=== PATIENT | female | born 1940 | race Caucasian/White ===

== ENCOUNTER 2019-02-20 14:16 | Observation (INO) | payer MEDICARE ==
[~2019-02-20] VITALS: Ht 152.4 cm; Wt 58.6 kg
[2019-02-20] MEDS ORDERED: NITROGLYCERIN 2% OINT 1 GM UNIT DOSE PACKET TOP ONE (14:45)
--- NOTE | 2019-02-20 14:48 | ED Respiratory ---
General Chief Complaint: Respiratory Problems Stated Complaint: SOB History of Present Illness Date Seen by Provider: Feb 20, 2019 Time Seen by Provider: 14:30 Initial Comments The patient is a 78-year-old female with a history of hypertension, hyperli pidemia, coronary artery disease status post CABG and stenting, heart failure with unclear EF, chronic kidney disease. She presents with concern for dyspnea with exertion, orthopnea and paroxysmal nocturnal dyspnea with acute worsening over the past one day. Patient states she has not been able to sleep lying flat due to dyspnea. She becomes dyspneic with minimal exertion. She states these symptoms are new. She thinks she may have forgotten to take her Lasix yesterday. She is alert and pleasantly and appropriately interactive, speaking in full sentences and in no distress. She is hypertensive and oxygen saturation is in the mid to upper 90s on room air. Allergies and Home Medications Allergies Coded Allergies: No Known Drug Allergies (Unverified , 02/20/19) Patient Home Medication List Home Medication List Reviewed: Yes Review of Systems Review of Systems Constitutional: see HPI All Other Systems Reviewed Negative Unless Noted: Yes (Negative excepted noted.) Past Qclupyj-Rtyapr-Fczvja Hx Past Med/Social Hx: Reviewed Nursing Past Med/Soc Hx Patient Social History Recent Foreign Travel: No Family Medical History Reviewed Nursing Family Hx Physical Exam Vital Signs - First Documented 02/20/19 14:25 Temp 36.5 Pulse 114 Resp 19 B/P (MAP) 184/87 (119) Pulse Ox 96 O2 Delivery Room Air Capillary Refill : Height: '" Weight: lbs. oz. kg; BMI Method: General Appearance: no apparent distress This is an elderly female appearing nontoxic and in no acute distress. Head is normocephalic and atraumatic. Neck is supple and nontender. There is mild JVD appreciated bilaterally. Oropharynx is moist. Lungs with diminished breath sounds, particularly to lower wade. No adventitious sounds appreciated. There is a normal S1 and S2 without rubs or gallops and capillary refill is appropriate, less than 2 seconds globally. Abdomen is soft, nontender and nondistended. Skin is warm and dry without cyanosis or clubbing. Psychiatrically, the patient demonstrates appropriate mood and affect and is alert. Examination of bilateral lower extremities is remarkable for symmetric 2+ pitting edema below the level of the mid to upper shins bilaterally. There is no associated erythema. There is no calf pain or erythema bilaterally. Bilateral lower extremities are neurovascularly intact distally. Progress/Results/Core Measures Suspected Sepsis SIRS Temperature: Pulse: Respiratory Rate: Laboratory Tests 02/20/19 14:30: White Blood Count 7.9 Blood Pressure / Mean: Laboratory Tests 02/20/19 14:30: Creatinine 1.04, INR Comment 1.0, Platelet Count 327, Total Bilirubin 0.7 Results/Orders Lab Results Laboratory Tests Test 02/20/19 14:30 Range/Units White Blood Count 7.9 4.3-11.0 10^3/uL Red Blood Count 3.78 L 4.35-5.85 10^6/uL Hemoglobin 10.8 L 11.5-16.0 G/DL Hematocrit 33 L 35-52 % Mean Corpuscular Volume 88 80-99 FL Mean Corpuscular Hemoglobin 29 25-34 PG Mean Corpuscular Hemoglobin Concent 32 32-36 G/DL Red Cell Distribution Width 13.4 10.0-14.5 % Platelet Count 327 130-400 10^3/uL Mean Platelet Volume 10.6 H 7.4-10.4 FL Neutrophils (%) (Auto) 61 42-75 % Lymphocytes (%) (Auto) 24 12-44 % Monocytes (%) (Auto) 8 0-12 % Eosinophils (%) (Auto) 6 0-10 % Basophils (%) (Auto) 1 0-10 % Neutrophils # (Auto) 4.8 1.8-7.8 X 10^3 Lymphocytes # (Auto) 1.9 1.0-4.0 X 10^3 Monocytes # (Auto) 0.7 0.0-1.0 X 10^3 Eosinophils # (Auto) 0.5 H 0.0-0.3 10^3/uL Basophils # (Auto) 0.0 0.0-0.1 10^3/uL Prothrombin Time 13.7 12.2-14.7 SEC INR Comment 1.0 0.8-1.4 Activated Partial Thromboplast Time 26 24-35 SEC D-Dimer 3.38 H 0.00-0.49 UG/ML Sodium Level 134 L 135-145 MMOL/L Potassium Level 3.3 L 3.6-5.0 MMOL/L Chloride Level 95 L 98-107 MMOL/L Carbon Dioxide Level 22 21-32 MMOL/L Anion Gap 17 H 5-14 MMOL/L Blood Urea Nitrogen 27 H 7-18 MG/DL Creatinine 1.04 0.60-1.30 MG/DL Estimat Glomerular Filtration Rate 51 BUN/Creatinine Ratio 26 Glucose Level 115 H 70-105 MG/DL Calcium Level 9.4 8.5-10.1 MG/DL Corrected Calcium 9.3 8.5-10.1 MG/DL Total Bilirubin 0.7 0.1-1.0 MG/DL Aspartate Amino Transf (AST/SGOT) 25 5-34 U/L Alanine Aminotransferase (ALT/SGPT) 13 0-55 U/L Alkaline Phosphatase 114 40-136 U/L Troponin I < 0.30 <0.30 NG/ML Pro-B-Type Natriuretic Peptide 530.7 H <75.0 PG/ML Total Protein 6.9 6.4-8.2 GM/DL Albumin 4.1 3.2-4.5 GM/DL My Orders Orders - KIRSTIE BERGERON MD Cbc With Automated Diff (02/20/19 14:42) Comprehensive Metabolic Panel (02/20/19 14:42) Troponin I Fs (02/20/19 14:42) Ekg Tracing (02/20/19 14:42) Chest Pa/Lat (2 View) (02/20/19 14:42) Probnp Fs (02/20/19 14:42) Fibrin Degradation Products (02/20/19 14:42) Protime With Inr (02/20/19 14:42) Partial Thromboplastin Time (02/20/19 14:42) Nitroglycerin Ointment (Nitrobid Ointme (02/20/19 14:45) Furosemide Injection (Lasix Injection) (02/20/19 15:00) Ct Angio Chest W (02/20/19 15:37) Iohexol Injection (Omnipaque 350 Mg/Ml 1 (02/20/19 16:00) Received Contrast (Hold Metformin- Contr (02/20/19 16:00) Sodium Chloride Flush (Catheter Flush Sy (02/20/19 16:00) Ns (Ivpb) (Sodium Chloride 0.9% Ivpb Bag (02/20/19 16:00) Potassium Chloride (Tablet) (K Dur Table (02/20/19 16:00) Medications Given in ED Current Medications Medications Dose Ordered Sig/Emi Route Start Time Stop Time Status Last Admin Dose Admin Furosemide 20 mg ONCE ONCE IVP 02/20/19 15:00 02/20/19 15:01 DC 02/20/19 14:53 20 MG Iohexol 100 ml ONCE ONCE IV 02/20/19 16:00 02/20/19 16:01 DC 02/20/19 16:05 100 ML Nitroglycerin 1 inch ONCE ONCE TOP 02/20/19 14:45 02/20/19 14:46 DC 02/20/19 14:53 1 INCH Potassium Chloride 40 meq ONCE ONCE PO 02/20/19 16:00 02/20/19 16:01 DC 02/20/19 16:14 40 MEQ Sodium Chloride 10 ml NEEDED PRN IV 02/20/19 16:00 02/20/19 16:05 10 ML Sodium Chloride 100 ml ONCE ONCE IV 02/20/19 16:00 02/20/19 16:01 DC 02/20/19 16:05 100 ML Vital Signs/I&O 02/20/19 14:25 Temp 36.5 Pulse 114 Resp 19 B/P (MAP) 184/87 (119) Pulse Ox 96 O2 Delivery Room Air Capillary Refill : Progress Note : Time: 15:01 Progress Note 78-year-old female who presents in likely heart failure exacerbation. We will start IV, place nitropaste and give a push dose of Lasix. We'll check labs and EKG and chest x-ray and will then reevaluate. Given symptoms, comorbidities and advanced age, patient will likely be an admission to the hospital. Update 1700: The patient is resting comfortably and states she feels somewhat better after nitro paste and Lasix here in the emergency department. She states her breathing is better. Blood pressure has come down nicely although the patient is still noted to be mildly tachycardic to about 110 with a regular rhythm. Oxygen saturation is appropriate at 97% on room air. Large workup is as above, with elevated BNP without obvious pulmonary congestion on thoracic imaging today. CT angiography of the chest does not reveal blood clot or any other acute process. EKG and cardiac biomarkers are without evidence of ischemia. Potassium was a little low and has been repleted, a chronic problem for this patient who is on daily Lasix. Balance of evidence including the fact that the patient missed her Lasix dose yesterday does continue to suggest heart failure exacerbation but will need to consider and rule out anginal equivalent dyspnea as well in this very elderly female. We will proceed with observation admission to [facility] at this time for continued gentle diuresis, trending of cardiac biomarkers and further care as indicated. Patient is graciously accepted for admission by Dr. East. ECG Comment Sinus tachycardia, rate 113, no acute ST elevation or depression, IL 175, QRS 89, QTC 406, EP interpretation. Diagnostic Imaging Comments CT ANGIO CHEST W INDICATION: Shortness of breath and chest tightness and elevated D-dimer, prior history of colon cancer and coronary bypass. TECHNIQUE: Multiple contiguous axial images were obtained through the chest after uneventful bolus administration of intravenous contrast. 3D reconstructed CTA MIP acquisitions were also performed. Auto Exposure Controls were utilized during the CT exam to meet ALARA standards for radiation dose reduction. COMPARISON: There is no previous study for comparison. FINDINGS: Thoracic aorta shows minor atherosclerotic changes with no evidence of aneurysm or dissection. The great vessel origins are patent. The pulmonary parenchymal vessels are well-opacified with no CT evidence of pulmonary emboli. There is no pleural or pericardial fluid. There is elevation of the left hemidiaphragm. There are no enlarged mediastinal or hilar nodes or enlarged axillary nodes. Lung parenchymal windows demonstrated a tiny calcified granuloma in the right upper lobe. There is no consolidation. There is some dependent atelectatic change or scarring in the left base. Visualized portions of the upper abdomen show no acute finding. IMPRESSION: No CT evidence of pulmonary emboli or aortic dissection or aneurysm. Postop changes post coronary bypass with elevation of the left hemidiaphragm. There is some mild left basilar scarring or atelectasis. There is no consolidation or pleural fluid. Dictated by: Dictated on workstation # [id number] Departure Impression Primary Impression: Acute exacerbation of congestive heart failure Qualified Codes: I50.23 - Acute on chronic systolic (congestive) heart failure Additional Impressions: Dyspnea Qualified Codes: R06.09 - Other forms of dyspnea Orthopnea Disposition: ADMITTED INPATIENT Condition: Stable Departure-Patient Inst. Referrals: DONNA ROSE MD (PCP/Family) Primary Care Physician KIRSTIE BERGERON MD Feb 20, 2019 14:48
[2019-02-20 14:56] LABS: HEMATOCRIT 33 % (35-52); HEMOGLOBIN 10.8 G/DL (11.5-16.0); MEAN CORPUSCULAR HEMOGLOBIN 29 PG (25-34); MEAN CORPUSCULAR HGB CONC 32 G/DL (32-36); MEAN CORPUSCULAR VOLUME 88 FL (80-99); MEAN PLATELET VOLUME 10.6 FL (7.4-10.4); NEUTROPHILS % (AUTO) 61 % (42-75); PLATELET COUNT 327 10^3/uL (130-400); RED CELL DISTRIBUTION WIDTH 13.4 % (10.0-14.5); WHITE BLOOD COUNT 7.9 10^3/uL (4.3-11.0)
[2019-02-20 14:57] LABS: BASOPHILS % (AUTO) 1 % (0-10); EOSINOPHILS # (AUTO) 0.5 10^3/uL (0.0-0.3); EOSINOPHILS % (AUTO) 6 % (0-10); LYMPHOCYTES # (AUTO) 1.9 X 10^3 (1.0-4.0); LYMPHOCYTES % (AUTO) 24 % (12-44); MONOCYTES # (AUTO) 0.7 X 10^3 (0.0-1.0); MONOCYTES % (AUTO) 8 % (0-12); NEUTROPHILS # (AUTO) 4.8 X 10^3 (1.8-7.8)
[2019-02-20] MEDS ORDERED: FUROSEMIDE 40 MG/4 ML INJ (LASIX) IVP ONE (15:00)
--- NOTE | 2019-02-20 15:04 | Diagnostic Imaging Report ---
INDICATION: Shortness of breath and chest tightness. TIME OF EXAM: 2:27 p.m. COMPARISON: No prior studies are available for comparison. FINDINGS: Changes of median sternotomy are noted. There is mild left ventricular prominence. Lungs are clear. No infiltrate or failure is seen. No significant effusion or pneumothorax is detected. IMPRESSION: No acute cardiopulmonary process is detected. Dictated by: Dictated on workstation # [id number]
[2019-02-20 15:23] LABS: ALANINE AMINOTRANSFERASE 13 U/L (0-55); ALKALINE PHOSPHATASE 114 U/L (40-136); BILIRUBIN,TOTAL 0.7 MG/DL (0.1-1.0); BUN/CREATININE RATIO 26; CALCIUM 9.4 MG/DL (8.5-10.1); CARBON DIOXIDE 22 MMOL/L (21-32); CHLORIDE 95 MMOL/L (98-107); CREATININE SERUM 1.04 MG/DL (0.60-1.30); GFR ESTIMATED 51; GLUCOSE 115 MG/DL (70-105); POTASSIUM 3.3 MMOL/L (3.6-5.0); SODIUM 134 MMOL/L (135-145); TOTAL PROTEIN 6.9 GM/DL (6.4-8.2)
[2019-02-20 15:24] LABS: ALBUMIN 4.1 GM/DL (3.2-4.5)
[2019-02-20 15:35] LABS: FIBRIN DEGRADATION PRODUCTS 3.38 UG/ML (0.00-0.49); PROTHROMBIN TIME PATIENT 13.7 SEC (12.2-14.7)
[2019-02-20] MEDS ORDERED: CATHETER FLUSH 10 ML SYR IV PRN ×2 (16:00→20:30)
[2019-02-20] MEDS ORDERED: NS 100 ML (IVPB) BAG IV ONE (16:00)
[2019-02-20] MEDS ORDERED: IOHEXOL 350 MG/ML 100 ML (OMNIPAQUE 350) VIAL IV ONE (16:00)
[2019-02-20] MEDS ORDERED: HOLD METFORMIN - RECEIVED CONTRAST 20 ML VIAL IV SCH (16:00)
[2019-02-20] MEDS ORDERED: KCL 20 MEQ TAB (K-DUR) PO ONE (16:00)
--- NOTE | 2019-02-20 16:08 | NUR ---
Return to from CT.
--- NOTE | 2019-02-20 16:27 | Diagnostic Imaging Report ---
INDICATION: Shortness of breath and chest tightness and elevated D-dimer, prior history of colon cancer and coronary bypass. TECHNIQUE: Multiple contiguous axial images were obtained through the chest after uneventful bolus administration of intravenous contrast. 3D reconstructed CTA MIP acquisitions were also performed. Auto Exposure Controls were utilized during the CT exam to meet ALARA standards for radiation dose reduction. COMPARISON: There is no previous study for comparison. FINDINGS: Thoracic aorta shows minor atherosclerotic changes with no evidence of aneurysm or dissection. The great vessel origins are patent. The pulmonary parenchymal vessels are well-opacified with no CT evidence of pulmonary emboli. There is no pleural or pericardial fluid. There is elevation of the left hemidiaphragm. There are no enlarged mediastinal or hilar nodes or enlarged axillary nodes. Lung parenchymal windows demonstrated a tiny calcified granuloma in the right upper lobe. There is no consolidation. There is some dependent atelectatic change or scarring in the left base. Visualized portions of the upper abdomen show no acute finding. IMPRESSION: No CT evidence of pulmonary emboli or aortic dissection or aneurysm. Postop changes post coronary bypass with elevation of the left hemidiaphragm. There is some mild left basilar scarring or atelectasis. There is no consolidation or pleural fluid. Dictated by: Dictated on workstation # [id number]
--- NOTE | 2019-02-20 17:00 | NUR ---
Acceptance to [facility] for admit per Dr East to Dr Lau. Notified mold cleaning and storage supervisor for room assignment.
--- NOTE | 2019-02-20 17:50 | NUR ---
Pt report called to [facility] for Rm CU 12. Plan removal of SL for transfer per hospital staff and ER Dr request.
--- NOTE | 2019-02-20 18:18 | NUR ---
Pt departing with to transfer to [facility] for CSD Rm 12. Folder given with Dr orders and records. Notified ICU/CSD of approx arrival time. Pt in stable condition, SL dc'd before departure.
[2019-02-20 20:00] VITALS: BP 142/81
[2019-02-20 20:15] VITALS: BP 133/77
[2019-02-20] MEDS ORDERED: ACETAMINOPHEN 325 MG TABLET PO PRN (20:15)
[2019-02-20] MEDS ORDERED: ONDANSETRON 4 MG/2 ML (SDV) Z0FRAN IV PRN (20:15)
[2019-02-20 20:30] VITALS: BP 161/71
[2019-02-20 20:45] VITALS: BP 102/58
[2019-02-20] MEDS ORDERED: SENNA W/DOCUSATE (SENOKOT S) TABLET PO PRN (20:45)
[2019-02-20] MEDS ORDERED: ALPRAZolam 0.25 MG (XANAX) TAB PO PRN (20:45)
[2019-02-20] MEDS ORDERED: ENOXAPARIN 40 MG/0.4 ML (LOVENOX) SYR SC SCH (20:45)
[2019-02-20] MEDS ORDERED: CALCIUM CARBONATE 500 MG (TUMS) TAB.CHEW PO PRN (20:45)
[2019-02-20] MEDS ORDERED: ONDANSETRON 4 MG/2 ML (SDV) Z0FRAN IVP PRN (20:45)
[2019-02-20] MEDS ORDERED: DOCUSATE SODIUM 100 MG (COLACE) CAP PO PRN (20:45)
[2019-02-20] MEDS ORDERED: fentaNYL INJECTION 100 MCG/2 ML AMP IVP PRN (20:45)
[2019-02-20] MEDS ORDERED: ACETAMINOPHEN 500 MG TAB (TYLENOL) PO PRN (20:45)
[2019-02-20] MEDS ORDERED: MELATONIN 3 MG TABLET PO PRN ×2 (20:45)
[2019-02-20] MEDS ORDERED: diphenhydrAMINE 25 MG TAB (BENADRYL) PO PRN (20:45)
[2019-02-20] MEDS ORDERED: LOPERAMIDE 2 MG (IMODIUM) TABLET PO PRN (20:45)
[2019-02-20 21:00] VITALS: BP 142/90
[2019-02-20] MEDS ORDERED: HYDROcodone/APAP 5 MG/325 MG (LORTAB) TAB ONE (21:01)
[2019-02-20] MEDS: HYDROcodone/APAP 5 MG/325 MG (LORTAB) TAB PO PRN (21:06)
[2019-02-20 21:12] VITALS: BP 142/90
[2019-02-20] MEDS: FUROSEMIDE 40 MG/4 ML INJ (LASIX) IV SCH (21:29)
[2019-02-20] MEDS: CATHETER FLUSH 10 ML SYR IV SCH (22:00)
[2019-02-21] VITALS: BP 121/69
[2019-02-21 03:17] LABS: BASOPHILS % (AUTO) 1 % (0-10); EOSINOPHILS # (AUTO) 0.4 10^3/uL (0.0-0.3); EOSINOPHILS % (AUTO) 7 % (0-10); HEMATOCRIT 30 % (35-52); HEMOGLOBIN 9.4 G/DL (11.5-16.0); LYMPHOCYTES # (AUTO) 2.2 X 10^3 (1.0-4.0); LYMPHOCYTES % (AUTO) 36 % (12-44); MEAN CORPUSCULAR HEMOGLOBIN 28 PG (25-34); MEAN CORPUSCULAR HGB CONC 32 G/DL (32-36); MEAN CORPUSCULAR VOLUME 88 FL (80-99); MEAN PLATELET VOLUME 10.6 FL (7.4-10.4); MONOCYTES # (AUTO) 0.7 X 10^3 (0.0-1.0); MONOCYTES % (AUTO) 11 % (0-12); NEUTROPHILS # (AUTO) 2.9 X 10^3 (1.8-7.8); NEUTROPHILS % (AUTO) 47 % (42-75); PLATELET COUNT 320 10^3/uL (130-400); RED CELL DISTRIBUTION WIDTH 13.8 % (10.0-14.5); WHITE BLOOD COUNT 6.2 10^3/uL (4.3-11.0)
[2019-02-21 03:41] LABS: ALBUMIN 3.5 GM/DL (3.2-4.5); BILIRUBIN,TOTAL 0.9 MG/DL (0.1-1.0); CALCIUM 8.7 MG/DL (8.5-10.1); CREATININE SERUM 1.17 MG/DL (0.60-1.30); POTASSIUM 3.6 MMOL/L (3.6-5.0); TOTAL PROTEIN 5.7 GM/DL (6.4-8.2)
[2019-02-21 04:00] VITALS: BP 137/79
[2019-02-21] MEDS: HYDROcodone/APAP 5 MG/325 MG (LORTAB) TAB PO PRN (07:53)
[2019-02-21] MEDS: CATHETER FLUSH 10 ML SYR IV SCH ×2 (07:53→14:16)
[2019-02-21] MEDS: FUROSEMIDE 40 MG/4 ML INJ (LASIX) IV SCH (07:53)
[2019-02-21 08:30] VITALS: BP 140/75
[2019-02-21] MEDS ORDERED: NITR0.4T39 SL (09:47)
[2019-02-21] MEDS ORDERED: POTA10CA43 PO (09:47)
[2019-02-21] MEDS ORDERED: LOSA100T57 PO (09:47)
[2019-02-21] MEDS ORDERED: CARV25TA PO (09:47)
[2019-02-21] MEDS ORDERED: DICL100G27 TP (09:47)
[2019-02-21] MEDS ORDERED: HYDR-3816 PO (09:47)
[2019-02-21] MEDS ORDERED: FURO-124 PO (09:47)
[2019-02-21] MEDS ORDERED: ASPI-808 PO (09:47)
[2019-02-21 12:00] VITALS: BP 159/86
[2019-02-21] MEDS ORDERED: NITROGLYCERIN 0.4 MG SL TABS BTL 25'S SL PRN (12:30)
--- NOTE | 2019-02-21 12:30 | Short Stay Summary-Hospitalist ---
History of Present Illness HPI/Chief Complaint CC: AECHF HPI: This is aq 78yoWF clinic patient of Dr Herrera and Dr Ruben Brock who presented to the [facility] ER with respiratory insufficiency. She has a h/p CABG 1997 and has had stents in the past. CHF has been much improved with IV Lasix but her troponin remains a bit elevated at 0.051. After I rounded on the patient Dr Shahid saw the patient and decided to decline cardiac cath and left AMA Source: patient, family, RN/MD Date Seen 02/21/19 Time Seen by a Provider: 11:00 Attending Physician Fadia Burk DO PCP Jarad Herrera MD Referring Physician Date of Admission Feb 20, 2019 at 18:01 Home Medications & Allergies Home Medications Reviewed patient Home Medication Reconciliation performed by pharmacy medication reconciliations therapeutic massage technician and/or nursing. Patients Allergies have been reviewed. Allergies Allergies Coded Allergies No Known Drug Allergies (Cpnifbafbj70/20/19) Past Gnbfdme-Bmkhnl-Btrwea Hx Past Med/Social Hx: Reviewed Nursing Past Med/Soc Hx, Reviewed and Corrections made Patient Social History Marrital Status: Employed/Student: retired Alcohol Use: Denies Use Recreational Drug Use: No Smoking Status: Never a Smoker 2nd Hand Smoke Exposure: No Recent Foreign Travel: No Contact w/other who traveled: No Recent Hopitalizations: No Recent Infectious Disease Expo: No Immunizations Up To Date Date of Pneumonia Vaccine: Feb 21, 2016 Seasonal Allergies Seasonal Allergies: No Past Medical History Surgeries: CABG, Coronary Stent Cardiac: Chronic Edema/Swelling, Coronary Artery Disease, High Cholesterol, Hypertension Genitourinary: Renal Failure Gastrointestinal: Gastrointestinal Bleed Musculoskeletal: Arthritis Cancer: Colon History of Blood Disorders: No Family History Reviewed Nursing Family Hx Review of Systems Constitutional: see HPI Respiratory: dyspnea on exertion, orthopnea Physical Exam Physical Exam Vital Signs Vital Signs - First Documented 02/20/19 14:25 Temp 36.5 Pulse 114 Resp 19 B/P (MAP) 184/87 (119) Pulse Ox 96 O2 Delivery Room Air Capillary Refill : Less Than 3 SecondsLess Than 3 Seconds Height, Weight, BMI Height: '" Weight: lbs. oz. kg; 25.40 BMI Method: General Appearance: No Apparent Distress, WD/WN, Chronically ill, Thin Respiratory: Chest Non Tender, Lungs Clear, Normal Breath Sounds, No Accessory Muscle Use, No Respiratory Distress Cardiovascular: Regular Rate, Rhythm, No Edema, No Gallop, No JVD, No Murmur, Normal Peripheral Pulses Neurologic/Psychiatric: Alert, Oriented x3, No Motor/Sensory Deficits, Normal Mood/Affect Results Results/Procedures Labs Laboratory Tests 02/20/19 14:30 02/21/19 03:04 Patient resulted labs reviewed. Short Stay Diagnosis Discharge Diagnosis-Short Stay Admission Diagnosis Assessment: AECHF CAD CABG Final Discharge Diagnosis Assessment: AECHF CAD CABG Conclusion Plan Plan: Patient left AMA Diagnosis/Problems Diagnosis/Problems (1) Acute exacerbation of congestive heart failure Status: Acute Qualifiers: Qualified Codes: I50.23 - Acute on chronic systolic (congestive) heart failure (2) Dyspnea Status: Acute Qualifiers: Qualified Codes: R06.09 - Other forms of dyspnea (3) Orthopnea Status: Acute Clinical Quality Measures DVT/VTE Risk/Contraindication: Risk Factor Score Per Nursin RFS Level Per Nursing on Admit: 4+=Very High FADIA BURK DO Feb 21, 2019 12:30
[2019-02-21] MEDS ORDERED: HYDROcodone/APAP 7.5 MG/325 MG (LORTAB, LORCET PLUS) TABLET PO SCH (13:00)
[2019-02-21] MEDS ORDERED: DICLOFENAC 1% GEL 100 GM (VOLTAREN) TUBE TOP SCH (13:00)
[2019-02-21] MEDS ORDERED: CLOPIDOGREL 75 MG (PLAVIX) TABLET PO SCH (13:45)
--- NOTE | 2019-02-21 16:24 | Consultation-Cardiology ---
HPI-Cardiology Cardiology Consultation: Date of Consultation 02/21/19 Date of Admission Attending Physician Fadia East DO Admitting Physician Jarad Herrera MD Consulting Physician Kandace SHAHID MD HPI: Time Seen by a Provider: 11:30 Chief Complaint: Shortness of breath This is a 78-year-old lady with history of hypertension, hyperlipidemia, CAD, CABG. Loss PCI was 4 years ago. She had coronary angiography done 4 months ago which according to the patient was okay. She follows with Dr. Miranda in [place]. She has history of congestive heart failure as well. She complained of shortness of breath at rest. Worsening for the last 24 hours. Significant shortness of breath with minimal exertion. She denied any chest pain, syncope, near-syncope or palpitations. She denied any significant smoking. Family history of CAD. Review of Systems-Cardiology Review of Systems Constitutional: As described under HPI; No As described under HPI, No no symptoms reported, No chills, No fever, No lightheadedness Eyes: No As described under HPI, No no symptoms reported, No blindness, No blurred vision, No contact lenses, No drainage, No decreased acuity, No foreign body sensation, No pain, No vision change Ears/Nose/Throat: No As described under HPI, No no symptoms reported, No chronic hearing loss, No ear discharge, No ear pain, No nasal drainage, No ulcerations Respiratory: No no symptoms reported; As described under HPI; No As described under HPI, No cough; orthopnea, shortness of breath, SOB with excertion Cardiovascular: No no symptoms reported; As described under HPI; No As described under HPI, No chest pain, No edema, No irregular heart rate, No lightheadedness, No palpitations Gastrointestinal: No no symptoms reported, No As described under HPI, No abdomen distended, No abdominal pain, No blood streaked bowels, No constipation, No diarrhea, No nausea, No vomiting, No stool coloration changes Genitourinary: No As described under HPI, No burning, No dysuria, No discharge, No frequency, No flank pain, No hematuria, No urgency : Yes : No Skin: No rash, No skin related problems, No ulcerations Psychiatric/Neurological: No anxiety, No depression, No seizure, No focal weakness, No syncope Hematologic: No bleeding abnormalities All Other Systems Reviewed Negative Unless Noted: Yes (Negative excepted noted.) WSP-Birbwz-Irigtc Hx Patient Social History Marrital Status: Employed/Student: retired Alcohol Use: Denies Use Recreational Drug Use: No Smoking Status: Never a Smoker 2nd Hand Smoke Exposure: No Recent Foreign Travel: No Recent Infectious Disease Expo: No Hospitalization with Isolation: Denies Immunizations Up To Date Date of Pneumonia Vaccine: Feb 21, 2016 Past Medical History PMH As described under Assessment. Allergies and Home Medications Allergies Coded Allergies: No Known Drug Allergies (Unverified , 02/20/19) Home Medications Aspirin 325 Mg Tablet, 325 MG PO DAILY, (Reported) Carvedilol 25 Mg Tablet, 25 MG PO BID, (Reported) Diclofenac Sodium 100 Gm Gel..gram., 100 GM TP TID, (Reported) Furosemide 40 Mg Tablet, 40 MG PO DAILY, (Reported) Hydrocodone/Acetaminophen 1 Each Tablet, 1 TAB PO TID, (Reported) Losartan Potassium 100 Mg Tablet, 100 MG PO DAILY, (Reported) Nitroglycerin 0.4 Mg Tab.subl, 0.4 MG SL UD PRN for CHEST PAIN, (Reported) Potassium Chloride 10 Meq Capsule.er, 10 MEQ PO DAILY, (Reported) Patient Home Medication List Home Medication List Reviewed: Yes Physical Exam-Cardiology Physical Exam Vital Signs/I&O 02/21/19 02/21/19 02/21/19 02/21/19 07:00 08:00 08:00 08:30 Temp 36.3 Pulse 110 96 Resp 13 B/P (MAP) 140/75 (96) Pulse Ox 97 O2 Delivery Room Air Room Air 02/21/19 02/21/19 02/21/19 02/21/19 09:00 12:00 12:00 12:00 Temp 37.1 Pulse 107 96 Resp 16 B/P (MAP) 159/86 (110) 159/86 (110) Pulse Ox 96 96 97 O2 Delivery Room Air Room Air Room Air Room Air 02/21/19 02/21/19 13:00 14:19 Pulse 94 B/P (MAP) 02/21/19 00:00 Intake Total 0 ml Output Total 0 ml Balance 0 ml Capillary Refill : Less Than 3 SecondsLess Than 3 Seconds Constitutional: appears stated age, AAO x 3; No apparent distress; well- developed, well-nourished HEENT: PERRL; No discharge; hearing is well preserved, oral hygience is good; No ulceration, No xanthelasmas are seen Neck: No carotid bruit; carotid pulses are 2 + bilaterally Respiratory: chest is bilaterally symmetric, lungs clear to auscultation Cardiovascular: regular rate-rhythm, S1 and S2 Gastrointestinal: soft, audible bowel sounds; No spleenomegaly Rectal: deferred Extremities: normal range of motion, non-tender, normal inspection; No clubbing, No cyanosis; no lower extremity edema bilateral; No significant edema Neurologic/Psychiatric: no motor/sensory deficits, alert, normal mood/affect, oriented x 3, power is 5/5 both on sides Skin: normal color; No rash, No ulcerations Data Review Labs Laboratory Tests 02/20/19 20:28: Troponin I < 0.028 02/21/19 03:04: Troponin I 0.051H, White Blood Count 6.2, Red Blood Count 3.36L, Hemoglobin 9.4L , Hematocrit 30L, Mean Corpuscular Volume 88, Mean Corpuscular Hemoglobin 28, Mean Corpuscular Hemoglobin Concent 32, Red Cell Distribution Width 13.8, Platelet Count 320, Mean Platelet Volume 10.6H, Neutrophils (%) (Auto) 47, Lymphocytes (%) (Auto) 36, Monocytes (%) (Auto) 11, Eosinophils (%) (Auto) 7, Basophils (%) (Auto) 1, Neutrophils # (Auto) 2.9, Lymphocytes # (Auto) 2.2, Mon ocytes # (Auto) 0.7, Eosinophils # (Auto) 0.4H, Basophils # (Auto) 0.0, Sodium Level 136, Potassium Level 3.6, Chloride Level 101, Carbon Dioxide Level 20L, Anion Gap 15H, Blood Urea Nitrogen 27H, Creatinine 1.17, Estimat Glomerular Filtration Rate 45, BUN/Creatinine Ratio 23, Glucose Level 77, Calcium Level 8.7, Corrected Calcium 9.1, Total Bilirubin 0.9, Aspartate Amino Transf (AST/SGOT) 20, Alanine Aminotransferase (ALT/SGPT) 15, Alkaline Phosphatase 86, Total Protein 5.7L, Albumin 3.5 02/21/19 08:05: Troponin I 0.031H A/P-Cardiology Assessment/Admission Diagnosis Acute diastolic congestive heart failure, Non-STEMI, History of CAD, Hypertension, Hyperlipidemia Plan Acute diastolic congestive heart failure, improved with IV Lasix. Elevated BNP. Echocardiogram is recommended. However could not be done since the patient left the hospital. CT scan was negative for PE and aortic dissection. Non-STEMI, start dual antiplatelet therapy. Coronary angiography was recommended however the patient refused. I spoke at length with the patient and her and recommended coronary angiography since she is at high risk with previous PCI and CABG. However she continued to refuse and say that she did not have any chest pain and it was only because of shortness of breath. She understands that she could have recurrent VT and even . Even then she would like to go home. She would like to follow-up with Dr. Miranda. I did recommend that she be started on Plavix and return immediately to the ER if she has further worsening of shortness of breath or any chest pain. History of CAD, start dual antiplatelet therapy. Follow-up with Dr. Miranda as soon as possible. Hypertension, continue outpatient medical therapy. Hyperlipidemia, continue Lipitor. Thank you for your consultation. Please call me if you have any questions. Yaakov Shahid MD, FACP, FACC, FSCAI, FHRS, CCDS Interventional Cardiology Cardiac Electrophysiology Vascular Medicine and Endovascular Interventions Clinical Quality Measures DVT/VTE Risk/Contraindication: Risk Factor Score Per Nursin RFS Level Per Nursing on Admit: 4+=Very High Kandace SHAHID MD Feb 21, 2019 16:24
[2019-02-21] MEDS ORDERED: CARVEDILOL 12.5 MG (COREG) TABLET PO SCH (21:00)
[2019-02-21] MEDS ORDERED: ENOXAPARIN 30 MG/0.3 ML (LOVENOX) SYR SC SCH (21:00)
[2019-02-22] MEDS ORDERED: KCL 10 MEQ TAB (MICRO K) PO SCH (07:00)
[2019-02-22] MEDS ORDERED: ASPIRIN 325 MG (5 GR) TABLET PO SCH (09:00)
[2019-02-22] MEDS ORDERED: LOSARTAN 100 MG (COZAAR) TABLET PO SCH (09:00)
[2019-02-23] MEDS ORDERED: DICL100G27 TP (20:20)
[2019-02-24] MEDS ORDERED: ATOR40TA70 PO (11:33)
[2019-02-24] MEDS ORDERED: CLOP75TA28 PO (11:33)
[2019-02-24] MEDS ORDERED: AZIT250T12 PO (11:33)
== END 2019-02-21 14:18 | disposition left against medical advice (07) ==
LOC: ER FS 14:18 → ICU 18:01
PROVIDERS: ADMIT Internal Medicine; ATTEND Internal Medicine
DX: I50.23 Acute on chronic systolic (congestive) heart failure (principal); I13.0 Hypertensive heart and chronic kidney disease with heart failure and stage 1 through stage 4 chronic kidney disease, or unspecified chronic kidney disease; I25.10 Atherosclerotic heart disease of native coronary artery without angina pectoris; I21.4 Non-ST elevation (NSTEMI) myocardial infarction; N18.9 Chronic kidney disease, unspecified; E78.5 Hyperlipidemia, unspecified; E78.00 Pure hypercholesterolemia, unspecified; M19.90 Unspecified osteoarthritis, unspecified site; Z95.1 Presence of aortocoronary bypass graft
CPT/HCPCS: 36415; 71046; 71275; 80053; 83880; 84484; 85025; 85379; 85610; 85730; 96374

== ENCOUNTER 2019-02-21 18:14 | Inpatient (IN) | payer MEDICARE ==
[~2019-02-21] VITALS: Ht 152 cm; Wt 58.0 kg
[2019-02-21] VITALS (7 sets, daily range): BP systolic 136–190; BP diastolic 73–86
[~2019-02-21 18:14] MED LIST: ASPI-808 PO; CARV25TA PO; DICL100G27 TP; FURO-124 PO; HYDR-3816 PO; LOSA100T57 PO; NITR0.4T39 SL; POTA10CA43 PO
[2019-02-21] MEDS ORDERED: NITROGLYCERIN 0.4 MG SL TABS BTL 25'S SL ONE (18:28)
[2019-02-21] MEDS: NITROGLYCERIN 0.4 MG SL TABS BTL 25'S SL PRN ×2 (18:32→19:11)
--- NOTE | 2019-02-21 18:35 | ED Chest Pain ---
General Chief Complaint: Chest Pain Stated Complaint: CHEST TIGHTNESS/SOA Nursing Triage Note: PT TO ED W/ C/O CP ONSET TODAY AFTER BEING DISCHARGED FROM THIS FACILITY TODAY FOR SAME C/O. PT ALSO REPORTS SOB AT THIS TIME. Nursing Sepsis Screen: No Definite Risk Exam Limitations: no limitations History of Present Illness Date Seen by Provider: Feb 21, 2019 Time Seen by Provider: 18:30 Initial Comments To ER by private vehicle with reports of chest tightness. She was admitted to the hospital yesterday for CHF exacerbation, states that she was told she should have a cardiac catheterization, she states that she was feeling well enough time of that recommendation that she herself does not feel like it was necessary. However shortly after leaving the hospital she noted worsening chest tightness and shortness of breath with exertion. On arrival to ER she rates her chest tightness at 8 out of 10. Blood pressure 190/86 Timing/Duration: 1-3 hours Severity/Quality: moderate Location: central Radiation: no radiation ASA po CARAMEL CUTTER HELPER: No NTG SL CARAMEL CUTTER HELPER: No Associated Symptoms: shortness of breath Allergies and Home Medications Allergies Coded Allergies: No Known Drug Allergies (Unverified , 02/20/19) Home Medications Aspirin 325 Mg Tablet, 325 MG PO DAILY, (Reported) Carvedilol 25 Mg Tablet, 25 MG PO BID, (Reported) Diclofenac Sodium 100 Gm Gel..gram., 100 GM TP TID, (Reported) Furosemide 40 Mg Tablet, 40 MG PO DAILY, (Reported) Hydrocodone/Acetaminophen 1 Each Tablet, 1 TAB PO TID, (Reported) Losartan Potassium 100 Mg Tablet, 100 MG PO DAILY, (Reported) Nitroglycerin 0.4 Mg Tab.subl, 0.4 MG SL UD PRN for CHEST PAIN, (Reported) Potassium Chloride 10 Meq Capsule.er, 10 MEQ PO DAILY, (Reported) Patient Home Medication List Home Medication List Reviewed: Yes (Cleopatra) Review of Systems Review of Systems Constitutional: see HPI EENTM: No Symptoms Reported Respiratory: See HPI Cardiovascular: See HPI, Chest Pain Gastrointestinal: No Symptoms Reported Genitourinary: No Symptoms Reported Musculoskeletal: no symptoms reported Skin: no symptoms reported Psychiatric/Neurological: No Symptoms Reported Endocrine: No Symptoms Reported Past Mzxggpz-Rizbln-Pwqosy Hx Patient Social History 2nd Hand Smoke Exposure: No Recent Foreign Travel: No Contact w/Someone Who Travel: No Recent Infectious Disease Expo: No Recent Hopitalizations: No Immunizations Up To Date Date of Pneumonia Vaccine: Feb 21, 2016 Seasonal Allergies Seasonal Allergies: No Past Medical History Surgeries: Yes (S/P colon resection; H/O L wrist deformity congenital, L carotid endarterec) CABG, Coronary Stent Respiratory: No Cardiac: Yes Chronic Edema/Swelling, Coronary Artery Disease, High Cholesterol, Hypertension Neurological: No Genitourinary: Yes (CKD Stage 3) Renal Failure Gastrointestinal Bleed Musculoskeletal: Yes ( 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 oz. 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 Bilateral lower extremity pitting edema 2+.) Neurologic/Psychiatric: Alert, Oriented x3 Skin: Normal Color, Warm/Dry Progress/Results/Core Measures Results/Orders Lab Results Laboratory Tests Test 02/21/19 18:26 Range/Units White Blood Count 7.3 4.3-11.0 10^3/uL Red Blood Count 3.93 L 4.35-5.85 10^6/uL Hemoglobin 11.4 #L 11.5-16.0 G/DL Hematocrit 34 L 35-52 % Mean Corpuscular Volume 88 80-99 FL Mean Corpuscular Hemoglobin 29 25-34 PG Mean Corpuscular Hemoglobin Concent 33 32-36 G/DL Red Cell Distribution Width 13.7 10.0-14.5 % Platelet Count 338 130-400 10^3/uL Mean Platelet Volume 10.9 H 7.4-10.4 FL Neutrophils (%) (Auto) 56 42-75 % Lymphocytes (%) (Auto) 28 12-44 % Monocytes (%) (Auto) 11 0-12 % Eosinophils (%) (Auto) 5 0-10 % Basophils (%) (Auto) 1 0-10 % Neutrophils # (Auto) 4.1 1.8-7.8 X 10^3 Lymphocytes # (Auto) 2.0 1.0-4.0 X 10^3 Monocytes # (Auto) 0.8 0.0-1.0 X 10^3 Eosinophils # (Auto) 0.3 0.0-0.3 10^3/uL Basophils # (Auto) 0.1 0.0-0.1 10^3/uL Prothrombin Time 13.6 12.2-14.7 SEC INR Comment 1.0 0.8-1.4 Activated Partial Thromboplast Time 20 L 24-35 SEC Sodium Level 137 135-145 MMOL/L Potassium Level 3.8 3.6-5.0 MMOL/L Chloride Level 98 98-107 MMOL/L Carbon Dioxide Level 22 21-32 MMOL/L Anion Gap 17 H 5-14 MMOL/L Blood Urea Nitrogen 24 H 7-18 MG/DL Creatinine 1.04 0.60-1.30 MG/DL Estimat Glomerular Filtration Rate 51 BUN/Creatinine Ratio 23 Glucose Level 104 70-105 MG/DL Calcium Level 8.9 8.5-10.1 MG/DL Corrected Calcium 8.8 8.5-10.1 MG/DL Magnesium Level 1.6 1.6-2.4 MG/DL Total Bilirubin 0.9 0.1-1.0 MG/DL Aspartate Amino Transf (AST/SGOT) 31 5-34 U/L Alanine Aminotransferase (ALT/SGPT) 20 0-55 U/L Alkaline Phosphatase 103 40-136 U/L Myoglobin 268.6 H 10.0-92.0 NG/ML Troponin I < 0.028 <0.028 NG/ML Total Protein 6.7 6.4-8.2 GM/DL Albumin 4.1 3.2-4.5 GM/DL My Orders Orders - CHRISTINE SELF APRN Cbc With Automated Diff (02/21/19 18:29) Magnesium (02/21/19 18:29) Chest 1 View, Ap/Pa Only (02/21/19 18:29) Ekg Tracing (02/21/19 18:29) Comprehensive Metabolic Panel (02/21/19 18:29) Myoglobin Serum (02/21/19 18:29) Protime With Inr (02/21/19 18:29) Partial Thromboplastin Time (02/21/19 18:29) O2 (02/21/19 18:29) Monitor-Rhythm Ecg Trace Only (02/21/19 18:29) Lipid Panel (02/22/19 06:00) Ed Iv/Invasive Line Start (02/21/19 18:29) Troponin I (02/21/19 18:29) Nitroglycerin 0.4 Mg Btl 25's (Nitrostat (02/21/19 18:30) Nitroglycerin 0.4 Mg Btl 25's (Nitrostat (02/21/19 18:28) Blood Culture (02/21/19 19:22) Lactic Acid Analyzer (02/21/19 19:22) Ceftriaxone For Iv Use (Rocephin For I (02/21/19 19:30) Medications Given in ED Current Medications Medications Dose Ordered Sig/Emi Route Start Time Stop Time Status Last Admin Dose Admin Nitroglycerin 0.4 mg UD PRN SL 02/21/19 18:30 02/21/19 19:11 0.4 MG Vital Signs/I&O 02/21/19 02/21/19 18:20 18:20 Temp 37.0 Pulse 93 Resp 20 B/P (MAP) 190/86 (120) Pulse Ox 95 O2 Delivery Room Air Diagnostic Imaging Diagonstic Imaging: Xray Comments NAME: GARY MATOS MED REC#: [id number] PT STATUS: REG ER : 1940 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 COMPARISON: 02/20/2019. EXAMINATION: Single view of the chest was obtained. FINDINGS: There is new consolidation opacifying the left lung base at the lower lobe with likely at least small left pleural effusion in the upper lobes. The right lung is clear. Sternal wires midline. IMPRESSION: New left basilar opacity suspicious for pneumonia and a small left-sided pleural effusion. Dictated on workstation # [id number] Dict: 02/21/191850 Trans: 02/21/191856 [facility] [id number] Interpreted by: MARTHA SCHAEFER Electronically signed by: Departure Communication (Admissions) Time/Spoke to Admitting Phy: 19:[address] East, we'll admit, Rocephin and Zithromax for community-acquired pneumonia although this is questionable as she doesn't have a fever leukocytosis or cough. May simply represent scarring seen on recent CT chest. The 2 nitroglycerin alleviated the chest pain. Blood pressure is 155/77. Heart rate 77. Spoke with Dr. Shahid, nothing by mouth after midnight. Impression Primary Impression: Chest pain on exertion Disposition: ADMITTED INPATIENT Condition: Stable Admissions Decision to Admit Reason: Admit from ER (General) Decision to Admit/Date: Feb 21, 2019 Time/Decision to Admit Time: 18:33 Departure-Patient Inst. Referrals: DONNA ROSE MD (PCP/Family) Primary Care Physician CHRISTINE SELF APRN Feb 21, 2019 18:35
[2019-02-21 18:39] LABS: BASOPHILS # (AUTO) 0.1 10^3/uL (0.0-0.1); BASOPHILS % (AUTO) 1 % (0-10); EOSINOPHILS # (AUTO) 0.3 10^3/uL (0.0-0.3); EOSINOPHILS % (AUTO) 5 % (0-10); HEMATOCRIT 34 % (35-52); HEMOGLOBIN 11.4 G/DL (11.5-16.0); LYMPHOCYTES % (AUTO) 28 % (12-44); MEAN CORPUSCULAR HEMOGLOBIN 29 PG (25-34); MEAN CORPUSCULAR HGB CONC 33 G/DL (32-36); MEAN CORPUSCULAR VOLUME 88 FL (80-99); MEAN PLATELET VOLUME 10.9 FL (7.4-10.4); MONOCYTES # (AUTO) 0.8 X 10^3 (0.0-1.0); MONOCYTES % (AUTO) 11 % (0-12); NEUTROPHILS # (AUTO) 4.1 X 10^3 (1.8-7.8); NEUTROPHILS % (AUTO) 56 % (42-75); PLATELET COUNT 338 10^3/uL (130-400); RED CELL DISTRIBUTION WIDTH 13.7 % (10.0-14.5); WHITE BLOOD COUNT 7.3 10^3/uL (4.3-11.0)
[2019-02-21 18:45] LABS: PROTHROMBIN TIME PATIENT 13.6 SEC (12.2-14.7)
--- NOTE | 2019-02-21 18:57 | Diagnostic Imaging Report ---
INDICATION: Chest pain. COMPARISON: 02/20/2019. EXAMINATION: Single view of the chest was obtained. FINDINGS: There is new consolidation opacifying the left lung base at the lower lobe with likely at least small left pleural effusion in the upper lobes. The right lung is clear. Sternal wires midline. IMPRESSION: New left basilar opacity suspicious for pneumonia and a small left-sided pleural effusion. Dictated by: Dictated on workstation # [id number]
[2019-02-21 18:59] LABS: ALBUMIN 4.1 GM/DL (3.2-4.5); BILIRUBIN,TOTAL 0.9 MG/DL (0.1-1.0); CALCIUM 8.9 MG/DL (8.5-10.1); CREATININE SERUM 1.04 MG/DL (0.60-1.30); MAGNESIUM 1.6 MG/DL (1.6-2.4); POTASSIUM 3.8 MMOL/L (3.6-5.0); TOTAL PROTEIN 6.7 GM/DL (6.4-8.2)
[2019-02-21] MEDS ORDERED: cefTRIAXone FOR IV USE 1,000 MG in WATER (STERILE) FOR INJECTION 10 ML IV ONE (19:30)
[2019-02-21] MEDS ORDERED: cefTRIAXone 1,000 MG IV (ROCEPHIN) VIAL ONE (19:52)
[2019-02-21] MEDS ORDERED: WATER (STERILE) FOR INJECTION 10 ML ONE (19:52)
[2019-02-21] MEDS ORDERED: NITROGLYCERIN 0.4 MG SL TABS BTL 25'S SL PRN (20:30)
[2019-02-21] MEDS ORDERED: AZITHROMYCIN 250 MG TAB (ZITHROMAX) PO ONE (20:30)
[2019-02-21] MEDS ORDERED: CATHETER FLUSH 10 ML SYR IV PRN (20:30)
[2019-02-21] MEDS ORDERED: morphine INJ 4 MG/ML 1 ML (VIAL/SYRINGE) IV PRN (20:30)
[2019-02-21] MEDS: AZITHROMYCIN 250 MG TAB (ZITHROMAX) PO SCH (20:58)
[2019-02-21] MEDS ORDERED: HYDROcodone/APAP 5 MG/325 MG (LORTAB) TAB ONE (21:05)
[2019-02-21] MEDS: HYDROcodone/APAP 5 MG/325 MG (LORTAB) TAB PO PRN (21:09)
[2019-02-21] MEDS ORDERED: DOCUSATE SODIUM 100 MG (COLACE) CAP PO PRN (21:15)
[2019-02-21] MEDS ORDERED: ACETAMINOPHEN 500 MG TAB (TYLENOL) PO PRN (21:15)
[2019-02-21] MEDS ORDERED: diphenhydrAMINE 25 MG TAB (BENADRYL) PO PRN (21:15)
[2019-02-21] MEDS ORDERED: ALPRAZolam 0.25 MG (XANAX) TAB PO PRN (21:15)
[2019-02-21] MEDS ORDERED: ONDANSETRON 4 MG/2 ML (SDV) Z0FRAN IVP PRN (21:15)
[2019-02-21] MEDS ORDERED: CALCIUM CARBONATE 500 MG (TUMS) TAB.CHEW PO PRN (21:15)
[2019-02-21] MEDS ORDERED: morphine INJ 4 MG/ML 1 ML (VIAL/SYRINGE) IVP PRN (21:15)
[2019-02-21] MEDS ORDERED: MELATONIN 3 MG TABLET PO PRN (21:15)
[2019-02-21] MEDS ORDERED: LOPERAMIDE 2 MG (IMODIUM) TABLET PO PRN (21:15)
[2019-02-21] MEDS: CATHETER FLUSH 10 ML SYR IV SCH (22:00)
[2019-02-21] MEDS ORDERED: RT-ALBUTEROL SULF 2.5 MG/3 ML PRE-MIX VIAL INH PRN (23:15)
[2019-02-22] VITALS (7 sets, daily range): BP systolic 145–191; BP diastolic 67–85
[2019-02-22] MEDS: CATHETER FLUSH 10 ML SYR IV SCH ×3 (06:42→22:01)
--- NOTE | 2019-02-22 06:47 | Diagnostic Imaging Report ---
Portable erect AP chest at 3:44. Indication: Chest pain. The cardiomegaly, the sternotomy wires and surgical clips and the left lower lobe pneumonia/atelectasis and fluid seen on the prior exam of 02/21/2019 are again evident and no different. I suspect that there is only a small amount of atelectasis/infiltrate and fluid in this area as much of the density in the left retrocardiac region is related to the elevated left hemidiaphragm seen on the CTA chest exam of 02/20/2019. The left upper lung and right lung image are clear. The mediastinum is not widened. The osseous structures are intact. 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 Impression: Stable chest. There has been no adverse change since the prior exam. Dictated by: Dictated on workstation # [id number]
[2019-02-22] MEDS: CLOPIDOGREL 75 MG (PLAVIX) TABLET PO SCH (08:29)
[2019-02-22] MEDS: ASPIRIN E.C. 81 MG (ECOTRIN) TAB PO SCH (08:29)
[2019-02-22] MEDS: SENNA W/DOCUSATE (SENOKOT S) TABLET PO SCH ×2 (08:34→22:01)
[2019-02-22] MEDS: HYDROcodone/APAP 5 MG/325 MG (LORTAB) TAB PO PRN ×3 (08:35→22:00)
[2019-02-22] MEDS: ENOXAPARIN 40 MG/0.4 ML (LOVENOX) SYR SC SCH (11:00)
[2019-02-22] MEDS: CARVEDILOL 12.5 MG (COREG) TABLET PO SCH ×2 (11:00→22:03)
[2019-02-22] MEDS: LOSARTAN 100 MG (COZAAR) TABLET PO SCH (11:00)
--- NOTE | 2019-02-22 11:08 | Consultation-Cardiology ---
HPI-Cardiology Cardiology Consultation: Date of Consultation 02/22/19 Date of Admission Attending Physician Fadia East DO Admitting Physician Jarad Herrera MD Consulting Physician Kandace SHAHID MD HPI: Time Seen by a Provider: 09:50 Chief Complaint: Chest pain This is a 78-year-old lady who has history of CABG, PCI. She presented very recently with CHF exacerbation with chest tightness and positive troponin and was recommended to undergo coronary angiography. However she signed out AMA. She presented back with worsening chest tightness and shortness of breath. Substernal chest discomfort with no significant radiation. 8/10 intensity. Moderate to severe intensity. No exacerbating or relieving factors. Associated with shortness of breath. Hypertensive during ER evaluation. Review of Systems-Cardiology Review of Systems Constitutional: As described under HPI; No As described under HPI, No no symptoms reported, No chills, No fever, No lightheadedness Eyes: No As described under HPI, No no symptoms reported, No blindness, No blurred vision, No contact lenses, No drainage, No decreased acuity, No foreign body sensation, No pain, No vision change Ears/Nose/Throat: No As described under HPI, No no symptoms reported, No chronic hearing loss, No ear discharge, No ear pain, No nasal drainage, No ulcerations Respiratory: No no symptoms reported; As described under HPI; No As described under HPI, No cough, No orthopnea; shortness of breath; No SOB with excertion Cardiovascular: No no symptoms reported; As described under HPI; No As described under HPI; chest pain; No edema, No irregular heart rate, No lightheadedness, No palpitations Gastrointestinal: No no symptoms reported, No As described under HPI, No abdomen distended, No abdominal pain, No blood streaked bowels, No constipation, No diarrhea, No nausea, No vomiting, No stool coloration changes Genitourinary: No As described under HPI, No burning, No dysuria, No discharge, No frequency, No flank pain, No hematuria, No urgency : Yes : No Skin: No rash, No skin related problems, No ulcerations Psychiatric/Neurological: No anxiety, No depression, No seizure, No focal weakness, No syncope Hematologic: No bleeding abnormalities YYV-Hwrdkf-Ekyujn Hx Patient Social History Alcohol Use: Denies Use Recreational Drug Use: No Smoking Status: Never a Smoker 2nd Hand Smoke Exposure: No Recent Foreign Travel: No Recent Infectious Disease Expo: No Hospitalization with Isolation: Denies Physical Abuse Screen: No Sexual Abuse: No Immunizations Up To Date Date of Pneumonia Vaccine: Feb 21, 2016 Date of Influenza Vaccine: Dec 22, 2018 Past Medical History PMH As described under Assessment. Allergies and Home Medications Allergies Coded Allergies: No Known Drug Allergies (Unverified , 02/20/19) Home Medications Aspirin 325 Mg Tablet, 325 MG PO HS, (Reported) Atorvastatin Calcium 40 Mg Tablet, 40 MG PO DAILY Prescribed by: COLLEEN ELIAS on 02/24/19 1133 Azithromycin 250 Mg Tablet, 250 MG PO HS Prescribed by: COLLEEN ELIAS on 02/24/19 1133 Carvedilol 25 Mg Tab, 25 MG PO BID, (Reported) Clopidogrel Bisulfate 75 Mg Tablet, 75 MG PO DAILY Prescribed by: COLLEEN ELIAS on 02/24/19 1133 Diclofenac Sodium 100 Gm Gel..gram., 2 GM TD QID PRN for ARTHRITIS PAIN, (Reported) Fish Oil/Dha/Epa 1 Each Capsule, 1 EACH PO DAILY, (Reported) Furosemide 40 Mg Tablet, 40 MG PO DAILY PRN for FLUID RETENTION, (Reported) Hydrocodone/Acetaminophen 1 Each Tablet, 1 TAB PO TID PRN for PAIN-MODERATE (5- 7), (Reported) Losartan Potassium 100 Mg Tablet, 100 MG PO DAILY, (Reported) Multivitamin 1 Each Tablet, 1 EACH PO DAILY, (Reported) Nitroglycerin 0.4 Mg Tab.subl, 0.4 MG SL UD PRN for CHEST PAIN, (Reported) Potassium Chloride 10 Meq Capsule.er, 10 MEQ PO DAILY PRN for FLUID RETENTION, (Reported) Patient Home Medication List Home Medication List Reviewed: Yes Physical Exam-Cardiology Physical Exam Vital Signs/I&O 02/24/19 02/24/19 02/24/19 02/24/19 04:00 04:00 07:00 07:30 Temp 36.6 37.9 Pulse 80 115 86 Resp 16 18 B/P (MAP) 156/64 (94) 182/76 (111) Pulse Ox 99 99 96 O2 Delivery Nasal Cannula Room Air Room Air O2 Flow Rate 2.00 02/24/19 02/24/19 02/24/19 08:00 09:00 09:37 Pulse Ox 93 O2 Delivery Room Air Room Air Room Air 12/24/19 00:00 Intake Total 1600 ml Output Total 1200 ml Balance 400 ml Capillary Refill : Less Than 3 Seconds Constitutional: appears stated age, AAO x 3; No apparent distress; well- developed, well-nourished HEENT: PERRL; No discharge; hearing is well preserved, oral hygience is good; No ulceration, No xanthelasmas are seen Neck: No carotid bruit; carotid pulses are 2 + bilaterally Respiratory: chest is bilaterally symmetric, lungs clear to auscultation Cardiovascular: regular rate-rhythm; No irregularly irregular, No extra beats, No parasternal heave is noted, No JVD, No edema, No bradycardia, No tachycardia, No point of maximal impulse, No cardiac thrills are palpable; S1 and S2; No gallop/S3, No gallop/S4, No diastolic murmur, No systolic murmur, No friction rub, No click, No other Gastrointestinal: soft, audible bowel sounds; No spleenomegaly Rectal: deferred Extremities: normal range of motion, non-tender, normal inspection; No clubbing, No cyanosis; no lower extremity edema bilateral; No significant edema Neurologic/Psychiatric: no motor/sensory deficits, alert, normal mood/affect, oriented x 3, power is 5/5 both on sides Skin: normal color; No rash, No ulcerations Data Review Labs Laboratory Tests 02/24/19 03:52: White Blood Count 5.9, Red Blood Count 3.39L, Hemoglobin 9.7L, Hematocrit 30L, Mean Corpuscular Volume 89, Mean Corpuscular Hemoglobin 29, Mean Corpuscular Hemoglobin Concent 32, Red Cell Distribution Width 13.8, Platelet Count 287, Mean Platelet Volume 10.9H, Neutrophils (%) (Auto) 57, Lymphocytes (%) (Auto) 27, Monocytes (%) (Auto) 12, Eosinophils (%) (Auto) 4, Basophils (%) (Auto) 0, Neutrophils # (Auto) 3.3, Lymphocytes # (Auto) 1.6, Monocytes # (Auto) 0.7, Eosinophils # (Auto) 0.2, Basophils # (Auto) 0.0, Neutrophils % (Manual) 57, Lymphocytes % (Manual) 28, Monocytes % (Manual) 9, Eosinophils % (Manual) 6, Absolute Reticulocyte Count 46, Percent Reticulocyte Count 1.35, Sodium Level 139, Potassium Level 3.7, Chloride Level 106, Carbon Dioxide Level 21, Anion Gap 12, Blood Urea Nitrogen 10, Creatinine 0.70, Estimat Glomerular Filtration Rate > 60, BUN/Creatinine Ratio 14, Glucose Level 86, Calcium Level 8.5, Iron Level 2 4L, Total Iron Binding Capacity 227L, Unsaturated Iron Binding Capacity 203, Transferrin % Saturation 11L Microbiology 02/21/19 Blood Culture - Preliminary, Resulted No growth A/P-Cardiology Assessment/Admission Diagnosis Pneumonia, Acute diastolic congestive heart failure, Non-STEMI, Hypertension, hyperlipidemia Plan Pneumonia, IV antibiotics. Acute diastolic congestive heart failure, Lasix. Echocardiogram showed normal LV function with diastolic dysfunction. Mild to moderate right cuspid regurgitation. Non-STEMI, continue dual antiplatelet therapy. Coronary angiography on 02/23/2019. Informed consent was taken. All risks and complication were explained in detail. Hyperlipidemia: Continue atorvastatin. Hypertension: Continue outpatient medical therapy. Thank you for your consultation. Please call me if you have any questions. Yaakov Shahid MD, FACP, FACC, FSCAI, FHRS, CCDS Interventional Cardiology Cardiac Electrophysiology Vascular Medicine and Endovascular Interventions Clinical Quality Measures AMI/AHF: ASA po Prior to arrival: No DVT/VTE Risk/Contraindication: Risk Factor Score Per Nursin RFS Level Per Nursing on Admit: 2=Moderate Kandace SHAHID MD Feb 22, 2019 11:08
--- NOTE | 2019-02-22 12:02 | History & Physical-Hospitalist ---
History of Present Illness HPI/Chief Complaint Chief complaint: Chest pain with severe lethargy after leaving AGAINST MEDICAL ADVICE yesterday History of present illness: This is a 78-year-old white female whom I admitted on Saturday evening for chest pain with slightly elevated troponin at 0.051 and consulted cardiology. Acute exacerbation of heart failure was managed with IV diuresis. She wanted to go home and after cardiology recommended cardiac catheterization to further risk stratify she decided to leave AGAINST MEDICAL ADVICE and went home. Apparently she arrived home was just laying around could not really do anything because she was so lethargic so she returned to [facility] ER in [place] instead of [place] and was found to have a n ew opacity in the left lower lobe on chest x-ray but normal white count and no fever and no hypoxia but cardiology was once again consulted patient was placed on Rocephin and Zithromax for empiric treatment of pneumonia in case that was the cause of the chest pain and nebulizer treatments and incentive spirometer. She was placed on Lovenox for DVT prophylaxis. Family at the bedside reported that when she got home she was not feeling well and could not really do anything or walk around. She has decided to undergo cardiac catheterization is planned tomorrow per cardiology recommendations. We will repeat chest x-ray in the morning. Source: patient, family, RN/MD Exam Limitations: no limitations Date Seen 02/22/19 Time Seen by a Provider: 10:30 Attending Physician Fadia East DO PCP Jarad Herrera MD Referring Physician Date of Admission Feb 21, 2019 at 19:13 Home Medications & Allergies Home Medications Reviewed patient Home Medication Reconciliation performed by pharmacy medication reconciliations electromyographic technician and/or nursing. Patients Allergies have been reviewed. Allergies Allergies Coded Allergies No Known Drug Allergies ([id number]/19) Past [id number]-Ytlcqb Hx Past Med/Social Hx: Reviewed Nursing Past Med/Soc Hx, Reviewed and Corrections made Patient Social History Marrital Status: Alcohol Use: Denies Use Recreational Drug Use: No Smoking Status: Never a Smoker 2nd Hand Smoke Exposure: No Physical Abuse Screen: No Sexual Abuse: No Recent Foreign Travel: No Contact w/other who traveled: No Recent Hopitalizations: No Recent Infectious Disease Expo: No Immunizations Up To Date Date of Pneumonia Vaccine: Feb 21, 2016 Date of Influenza Vaccine: Dec 22, 2018 Seasonal Allergies Seasonal Allergies: No Past Medical History Surgeries: CABG, Coronary Stent, Orthopedic (left arm deficit) Cardiac: Chronic Edema/Swelling, Coronary Artery Disease, High Cholesterol, Hypertension Genitourinary: Renal Failure Gastrointestinal: Gastrointestinal Bleed Musculoskeletal: Arthritis Cancer: Colon History of Blood Disorders: No Review of Systems Constitutional: see HPI Cardiovascular: chest pain Physical Exam Physical Exam Vital Signs Vital Signs - First Documented 02/21/19 02/21/19 18:20 23:06 Temp 37.0 Pulse 93 Resp 20 B/P (MAP) 190/86 (120) Pulse Ox 95 O2 Delivery Room Air FiO2 21 Capillary Refill : Less Than 3 Seconds Height, Weight, BMI Height: '" Weight: lbs. oz. kg; 25.14 BMI Method: General Appearance: No Apparent Distress, WD/WN, Chronically ill Eyes: Right Eye Normal Inspection, Right Eye PERRL HEENT: PERRL/EOMI, Normal ENT Inspection, Pharynx Normal, Moist Mucous Membranes Neck: Full Range of Motion, Normal Inspection, Non Tender Respiratory: Chest Non Tender, Lungs Clear, Normal Breath Sounds, No Accessory Muscle Use, No Respiratory Distress, Decreased Breath Sounds Cardiovascular: Regular Rate, Rhythm, No Edema, No Gallop, No JVD, No Murmur, Normal Peripheral Pulses Gastrointestinal: Normal Bowel Sounds, No Organomegaly, No Pulsatile Mass, Non Tender, Soft Back: Normal Inspection, No CVA Tenderness, No Vertebral Tenderness Extremity: Normal Capillary Refill, Normal Inspection, Normal Range of Motion, Non Tender, No Calf Tenderness, No Pedal Edema Neurologic/Psychiatric: Alert, Oriented x3, No Motor/Sensory Deficits, Normal Mood/Affect Skin: Normal Color, Warm/Dry Lymphatic: No Adenopathy Results Results/Procedures Labs Laboratory Tests 02/21/19 18:26 Patient resulted labs reviewed. Assessment/Plan Admission Diagnosis Assessment: Unstable angina CAD h/o CABG LLL infiltrate? no fever or elevated wbc but empirically placed on abx and nebs and IS in meantime HTN HLP Plan: Cath in am Abx empiric Nebs O2 Lovenox Admission Status: Inpatient Order (span 2 midnights) Reason for Inpatient Admission: Recurrent chest pain with NSTEMI with new pneumonia Diagnosis/Problems Diagnosis/Problems (1) Unstable angina (2) Left lower lobe pulmonary infiltrate (3) Hypertension (4) Hyperlipidemia (5) Chest pain on exertion Status: Acute (6) Acute exacerbation of congestive heart failure Status: Acute (7) Dyspnea Status: Acute (8) Orthopnea Status: Acute Clinical Quality Measures AMI/AHF: ASA po Prior to arrival: No DVT/VTE Risk/Contraindication: Risk Factor Score Per Nursin RFS Level Per Nursing on Admit: 2=Moderate FADIA EAST DO Feb 22, 2019 12:02
[2019-02-22] MEDS: cefTRIAXone 1,000 MG/SWFI 10 ML IV PUSH IV SCH ×2 (22:00)
[2019-02-22] MEDS: AZITHROMYCIN 250 MG TAB (ZITHROMAX) PO SCH (22:00)
[2019-02-23] VITALS (15 sets, daily range): BP systolic 135–177; BP diastolic 56–93
[2019-02-23 04:03] LABS: BASOPHILS % (AUTO) 1 % (0-10); EOSINOPHILS # (AUTO) 0.3 10^3/uL (0.0-0.3); EOSINOPHILS % (AUTO) 6 % (0-10); HEMATOCRIT 29 % (35-52); HEMOGLOBIN 9.2 G/DL (11.5-16.0); LYMPHOCYTES # (AUTO) 1.9 X 10^3 (1.0-4.0); LYMPHOCYTES % (AUTO) 36 % (12-44); MEAN CORPUSCULAR HEMOGLOBIN 28 PG (25-34); MEAN CORPUSCULAR HGB CONC 32 G/DL (32-36); MEAN CORPUSCULAR VOLUME 90 FL (80-99); MEAN PLATELET VOLUME 10.3 FL (7.4-10.4); MONOCYTES # (AUTO) 0.7 X 10^3 (0.0-1.0); MONOCYTES % (AUTO) 13 % (0-12); NEUTROPHILS # (AUTO) 2.3 X 10^3 (1.8-7.8); NEUTROPHILS % (AUTO) 44 % (42-75); PLATELET COUNT 251 10^3/uL (130-400); RED CELL DISTRIBUTION WIDTH 13.7 % (10.0-14.5); WHITE BLOOD COUNT 5.1 10^3/uL (4.3-11.0)
[2019-02-23 04:23] LABS: ALANINE AMINOTRANSFERASE 15 U/L (0-55); ALBUMIN 3.3 GM/DL (3.2-4.5); ALKALINE PHOSPHATASE 79 U/L (40-136); BILIRUBIN,TOTAL 0.5 MG/DL (0.1-1.0); BUN/CREATININE RATIO 17; CALCIUM 8.3 MG/DL (8.5-10.1); CARBON DIOXIDE 23 MMOL/L (21-32); CHLORIDE 102 MMOL/L (98-107); CREATININE SERUM 0.81 MG/DL (0.60-1.30); GFR ESTIMATED > 60; GLUCOSE 89 MG/DL (70-105); POTASSIUM 3.2 MMOL/L (3.6-5.0); SODIUM 138 MMOL/L (135-145); TOTAL PROTEIN 5.4 GM/DL (6.4-8.2)
[2019-02-23] MEDS: CATHETER FLUSH 10 ML SYR IV SCH ×3 (05:37→20:33)
[2019-02-23] MEDS ORDERED: NS IV 1000 ML 3,000 ML ONE (08:18)
[2019-02-23] MEDS ORDERED: HEParin 1000 UNIT/ML (10ML VIAL) FOR BOLUS ONE (08:18)
[2019-02-23] MEDS ORDERED: LIDOCAINE 1% INJ 20 ML 20 ML VIAL ONE (08:18)
[2019-02-23] MEDS ORDERED: KCL 20 MEQ TAB (K-DUR) PO NR (08:45)
--- NOTE | 2019-02-23 08:52 | Diagnostic Imaging Report ---
INDICATION: Shortness of breath and chest pain. Comparison made with prior exam from 02/22/2019. FINDINGS: The heart size is normal. Some left basilar atelectasis and pneumonitis. There is no pneumothorax. Small left pleural effusion. There has been a previous median sternotomy. IMPRESSION: Left basilar atelectasis and pneumonitis and small left pleural effusion. Dictated by: Dictated on workstation # [id number]
[2019-02-23] MEDS: ASPIRIN E.C. 81 MG (ECOTRIN) TAB PO SCH (09:21)
[2019-02-23] MEDS: ENOXAPARIN 40 MG/0.4 ML (LOVENOX) SYR SC SCH (09:21)
[2019-02-23] MEDS: LOSARTAN 100 MG (COZAAR) TABLET PO SCH (09:21)
[2019-02-23] MEDS: CLOPIDOGREL 75 MG (PLAVIX) TABLET PO SCH (09:21)
[2019-02-23] MEDS: CARVEDILOL 12.5 MG (COREG) TABLET PO SCH ×2 (09:21→20:33)
[2019-02-23] MEDS: SENNA W/DOCUSATE (SENOKOT S) TABLET PO SCH ×2 (09:21→20:33)
[2019-02-23] MEDS: NS IV 1000 ML 1,000 ML IV SCH ×2 (11:00→15:19)
[2019-02-23] MEDS ORDERED: fentaNYL INJECTION 100 MCG/2 ML AMP ONE ×2 (11:27→13:01)
[2019-02-23] MEDS ORDERED: MIDAZOLAM 5 MG/5 ML (VERSED) VIAL ONE (11:27)
[2019-02-23] MEDS ORDERED: NITRO DRIP 25000 MCG/D5W 250 ML IV ONE (12:19)
[2019-02-23] MEDS ORDERED: CLOPIDOGREL 300 MG (PLAVIX) TABLET PO ONE (12:20)
--- NOTE | 2019-02-23 13:10 | Cardiology Progress Note ---
Cardiology SOAP Progress Note Subjective: Chest tightness. Objective: I&O/Vital Signs 02/24/19 02/24/19 02/24/19 02/24/19 04:00 04:00 07:00 07:30 Temp 36.6 37.9 Pulse 80 115 86 Resp 16 18 B/P (MAP) 156/64 (94) 182/76 (111) Pulse Ox 99 99 96 O2 Delivery Nasal Cannula Room Air Room Air O2 Flow Rate 2.00 02/24/19 02/24/19 02/24/19 08:00 09:00 09:37 Pulse Ox 93 O2 Delivery Room Air Room Air Room Air 02/24/19 00:00 Intake Total 1600 ml Output Total 1200 ml Balance 400 ml Constitutional: AAO x 3 Respiratory: chest is bilaterally symmetric, lungs clear to auscultation Cardiovascular: regular rate-rhythm, S1 and S2 Gastrointestional: soft, audible bowel sounds Extremities: normal range of motion, non-tender, normal inspection, no lower extremity edema bilateral Neurologic/Psychiatric: no motor/sensory deficits, alert, normal mood/affect, oriented x 3 Skin: normal color Results/Procedures: Labs Laboratory Tests 02/24/19 03:52: White Blood Count 5.9, Red Blood Count 3.39L, Hemoglobin 9.7L, Hematocrit 30L, Mean Corpuscular Volume 89, Mean Corpuscular Hemoglobin 29, Mean Corpuscular Hemoglobin Concent 32, Red Cell Distribution Width 13.8, Platelet Count 287, Mean Platelet Volume 10.9H, Neutrophils (%) (Auto) 57, Lymphocytes (%) (Auto) 27, Monocytes (%) (Auto) 12, Eosinophils (%) (Auto) 4, Basophils (%) (Auto) 0, Neutrophils # (Auto) 3.3, Lymphocytes # (Auto) 1.6, Monocytes # (Auto) 0.7, Eosinophils # (Auto) 0.2, Basophils # (Auto) 0.0, Neutrophils % (Manual) 57, Lymphocytes % (Manual) 28, Monocytes % (Manual) 9, Eosinophils % (Manual) 6, Absolute Reticulocyte Count 46, Percent Reticulocyte Count 1.35, Sodium Level 139, Potassium Level 3.7, Chloride Level 106, Carbon Dioxide Level 21, Anion Gap 12, Blood Urea Nitrogen 10, Creatinine 0.70, Estimat Glomerular Filtration Rate > 60, BUN/Creatinine Ratio 14, Glucose Level 86, Calcium Level 8.5, Iron Level 24L, Total Iron Binding Capacity 227L, Unsaturated Iron Binding Capacity 203, Transferrin % Saturation 11L Microbiology 02/21/19 Blood Culture - Preliminary, Resulted No growth A/P: Assessment/Dx: Pneumonia, Acute diastolic congestive heart failure, Non-STEMI, Hypertension, hyperlipidemia Plan: Pneumonia, IV antibiotics. Acute diastolic congestive heart failure, Lasix. Echocardiogram showed normal LV function with diastolic dysfunction. Mild to moderate right cuspid regurgitation. Non-STEMI, continue dual antiplatelet therapy. Coronary angiography on 02/23/2019. Informed consent was taken. All risks and complication were explained in detail. Hyperlipidemia: Continue atorvastatin. Hypertension: Continue outpatient medical therapy. Thank you for your consultation. Please call me if you have any questions. Yaakov Shahid MD, FACP, FACC, FSCAI, FHRS, CCDS Interventional Cardiology Cardiac Electrophysiology Vascular Medicine and Endovascular Interventions Focused Exam Lactate Level 02/21/19 19:30: Lactic Acid Level 1.01 Clinical Quality Measures AMI/AHF: ASA po Prior to arrival: Kandace Velasco MD Feb 23, 2019 13:10
--- NOTE | 2019-02-23 13:14 | Cardiac Procedure Note-CS/ASA ---
Pre-Procedure Note Pre-Op Procedure Note H&P Reviewed The H&P was reviewed, patient examined and no changes noted. Date H&P Reviewed: Feb 23, 2019 Time H&P Reviewed: 09:30 Conscious Sedation Pre-Proced Time 09:30 ASA Score 3 For ASA 3 and 4: Consider anesthesia and medical clearance. Also, for patients with a history of failed moderate sedation consider anesthesia. Airway Lungs Heart ASA score ASA 1: a normal healthy patient ASA 2: a patient with a mild systemic disease (mid diabetes, controlled hypertension, obesity ASA 3: a patient with a severe systemic disease that limits activity (angina, COPD, prior Myocardial infarction) ASA 4: a patient with an incapacitating disease that is a constant threat to life (CHF, renal failure) ASA 5: a moribund patient not expected to survive 24 hrs. (ruptured aneurysm) ASA 6: a declared brain- patient whose organs are being harvested. For emergent operations, add the letter E after the classification Mallampati Classification Grade 1 Sedation Plan Analgesia, Amnesia, Plan communicated to team members, Discussed options with patient/fam, Discussed risks with patient/fam The patient is an appropriate candidate to undergo the planned procedure, sedation, and anesthesia. The patient immediately re-assessed prior to indication. Kandace HODGE MD Feb 23, 2019 13:14
--- NOTE | 2019-02-23 13:14 | Coronary Angiography & PCI ---
Coronary Angiography & PCI DATE OF PROCEDURE: 02/23/19 INDICATION: Unstable angina, previous history of CABG and PCI. PREOPERATIVE DIAGNOSIS: Unstable angina, previous history of CABG and PCI. POSTOPERATIVE DIAGNOSIS: Severe two-vessel CAD. Left circumflex artery treated with 2 drug-eluting stents, Severe ISR in the proximal ramus stent treated with balloon angioplasty. HISTORY: Therefore, the patient was scheduled for coronary angiography. PROCEDURES PERFORMED: 1.Coronary angiography. 2.Left heart catheterization. 3. Graft angiography. 4. Aortic arch angiogram; medical necessity: To assess for any grafts that we may not have been identified. 5. PCI to the left circumflex artery with 2 drug-eluting stents. 6. PTCA to severe in-stent restenosis of the ramus intermedius. COMPLICATIONS: None. SPECIMENS: None. ESTIMATED BLOOD LOSS: 10 mL ANESTHESIA: Conscious sedation ANTICOAGULATION: IV heparin CONTRAST: 205 mL. FLUOROSCOPY: 18.4 minutes. FLOUROSCOPY DOSE: 853 mgy. PROCEDURE DETAILS: The patient is a 78 female and was brought to the laboratory specialist after informed consent was taken. All the risks and complications were explained in detail; this included the risk of bleeding, vascular damage, stroke, OR and even . The patient was draped and prepped in the usual sterile fashion. Access was gained in the right femoral artery with a 5 Thai sheath. Coronary angiography, left heart catheterization, graft angiography was performed with a JR4 and a JL4 catheter. Aortic arch angiogram was performed with a pigtail catheter. FINDINGS: 1.Left main: No significant disease. 2.LAD: Occluded in the ostial segment within a stent. Distally supplied by a patent NEWMAN to the mid LAD. 3.Left circumflex artery: Severe disease in the proximal and midsegment of the left circumflex artery. Very tortuous OM arteries. Severe in-stent restenosis of a stent in the proximal ramus intermedius branch. 4.RCA: Mild to moderate diffuse disease in the RCA. No focal severe stenosis. 5.Left heart catheterization: LV pressure 113/0 mmHg. LVEDP 8 mmHg. Aortic pressure 114/55 mmHg. No gradient across the aortic valve. Normal LV function with no wall motion abnormalities. 6. Aortic arch angiogram, medical necessity: To assess any saphenous vein grafts. No evidence of aneurysm or dissection. Patent proximal segments of the great arteries. No saphenous vein grafts were noted. 7. Graft angiography: Tortuous NEWMAN with supplies to the mid LAD. Normal anastomosis. No significant disease. RECOMMENDATIONS: 1. PCI to the left circumflex artery is recommended. 2. PTCA to the severe in-stent restenosis to ramus intermedius is recommended. INTERVENTION DETAILS: EBU 3.5 guide, whisper extra-support guidewire, IV heparin for anticoagulation. ACT was over 200 seconds. We crossed the left circumflex artery with the whisper wire. The tip of the whisper wire was placed in the distal second OM artery. We took off emerge 2.5 x 15 balloon and performed balloon angioplasty of the mid left circumflex artery stenosis as well as the proximal and ostial disease. Residual disease was noted. Therefore we went in with a drug-eluting stent Xience Alexandra 2.5 x 15 mm and was deployed at 16 simone for 22 seconds in the mid left circumflex artery. We put a second Xience Alexandra 2.75 x 33 mm stent in the ostial/proximal left circumflex artery at 16 simone for 34 seconds. Excellent results. However in the distal OM 2 and a small dissection was noted. Very small distal vessel, no PCI is recommended. We performed angiogram after 5 minutes again and it was still the same. The wire was taken out and we crossed the in-stent restenosis in the stent in the proximal ramus intermedius. We used the NC Quantum 2.5 x 15 mm balloon and performed 2 balloon inflations in the distal aspect of the stent just outside the distal edge of the stent at 12 simone for 37 seconds. The proximal part of the stent was treated at 18 simone for 38 seconds. Satisfactory results with less than 50 percent ISR. TAHIRA-3 flow. The wire was taken out and post-angiogram showed good results. Patient was given bolus of Plavix before we started the procedure. CONCLUSIONS: 1. Patent NEWMAN to the LAD. 2. Severe in-stent restenosis to a stent to the ramus intermedius branch, successful PTCA. 3. Severe tandem stenosis in the proximal left circumflex artery treated with 2 drug-eluting stents. 4. Long-term dual antiplatelet therapy. Yaakov Shahid MD, FACP, FACC, [facility] Interventional Cardiology Kandace SHAHID MD Feb 23, 2019 13:14
[2019-02-23] MEDS ORDERED: PATIENT MAY USE OWN MEDS, ALL PO SCH (13:15)
[2019-02-23] MEDS: HYDROcodone/APAP 5 MG/325 MG (LORTAB) TAB PO PRN (15:27)
--- NOTE | 2019-02-23 20:07 | Progress Note ---
Subjective Subjective/Events-last exam Pt seen at 0940 am. Pt states she is feeling fairly well, is hoping to go home soon. Plan for cath today. Focused Exam Lactate Level 02/21/19 19:30: Lactic Acid Level 1.01 Objective Exam Last Set of Vital Signs Vital Signs Date Time Temp Pulse Resp B/P (MAP) Pulse Ox O2 Delivery O2 Flow Rate FiO2 02/23/19 18:41 84 02/23/19 17:00 2.00 02/23/19 17:00 18 143/77 (99) 100 02/23/19 16:00 Nasal Cannula 02/23/19 15:11 36.2 28 Capillary Refill : Less Than 3 Seconds I&O Intake and Output 02/23/19 00:00 Intake Total 760 ml Balance 760 ml Intake Oral 760 ml # Voids 9 General: Alert, No Acute Distress Lungs: Clear to Auscultation, Normal Air Movement Heart: Regular Rate, No Murmurs Neuro: Normal Speech Psych/Mental Status: Mood NL Results/Procedures Lab Laboratory Tests 02/23/19 03:56: White Blood Count 5.1, Red Blood Count 3.26L, Hemoglobin 9.2L, Hematocrit 29L, Mean Corpuscular Volume 90, Mean Corpuscular Hemoglobin 28, Mean Corpuscular Hemoglobin Concent 32, Red Cell Distribution Width 13.7, Platelet Count 251, Mean Platelet Volume 10.3, Neutrophils (%) (Auto) 44, Lymphocytes (%) (Auto) 36, Monocytes (%) (Auto) 13H, Eosinophils (%) (Auto) 6, Basophils (%) (Auto) 1, Neutrophils # (Auto) 2.3, Lymphocytes # (Auto) 1.9, Monocytes # (Auto) 0.7, Eosinophils # (Auto) 0.3, Basophils # (Auto) 0.0, Sodium Level 138, Potassium Level 3.2L, Chloride Level 102, Carbon Dioxide Level 23, Anion Gap 13, Blood Urea Nitrogen 14, Creatinine 0.81, Estimat Glomerular Filtration Rate > 60, BUN/Creatinine Ratio 17, Glucose Level 89, Calcium Level 8.3L, Corrected Calcium 8.9, Total Bilirubin 0.5, Aspartate Amino Transf (AST/SGOT) 20, Alanine Aminotransferase (ALT/SGPT) 15, Alkaline Phosphatase 79, Total Protein 5.4L, Albumin 3.3 Microbiology 02/21/19 Blood Culture - Preliminary, Resulted No growth Assessment/Plan Assessment/Plan (1) Chest pain Assessment & Plan: Cardiology consulted, appreciate recommendations, plan for cardiac cath today. (2) Left lower lobe pulmonary infiltrate Assessment & Plan: On azithromycin and ceftriaxone for community acquired pneumonia (3) Anemia Assessment & Plan: Check iron studies and peripheral smear. Note of normal hemoglobin in May 2018, very slight anemia in 11/2018 in clinic records. (4) Hypokalemia Status: Acute Assessment & Plan: Replace and follow (5) DVT prophylaxis Status: Acute Assessment & Plan: Enoxaparin Clinical Quality Measures AMI/AHF: ASA po Prior to arrival: No DVT/VTE Risk/Contraindication: Risk Factor Score Per Nursin RFS Level Per Nursing on Admit: 2=Moderate COLLEEN ELIAS MD Feb 23, 2019 20:06
[2019-02-23] MEDS ORDERED: DICL100G27 TP (20:20)
[2019-02-23] MEDS: cefTRIAXone 1,000 MG/SWFI 10 ML IV PUSH IV SCH ×2 (20:32)
[2019-02-23] MEDS: AZITHROMYCIN 250 MG TAB (ZITHROMAX) PO SCH (20:33)
[2019-02-23] MEDS: RT-ALBUTEROL SULF 2.5 MG/3 ML PRE-MIX VIAL INH SCH (21:38)
[2019-02-24] VITALS: BP 137/65
[2019-02-24] MEDS: NS IV 1000 ML 1,000 ML IV SCH (02:09)
[2019-02-24 04:00] VITALS: BP 156/64
[2019-02-24 04:27] LABS: ABSOLUTE RETIC # 46 10e9/L (24-90); BASOPHILS % (AUTO) 0 % (0-10); EOSINOPHILS # (AUTO) 0.2 10^3/uL (0.0-0.3); EOSINOPHILS % (AUTO) 4 % (0-10); HEMATOCRIT 30 % (35-52); HEMOGLOBIN 9.7 G/DL (11.5-16.0); LYMPHOCYTES # (AUTO) 1.6 X 10^3 (1.0-4.0); LYMPHOCYTES % (AUTO) 27 % (12-44); MEAN CORPUSCULAR HEMOGLOBIN 29 PG (25-34); MEAN CORPUSCULAR HGB CONC 32 G/DL (32-36); MEAN CORPUSCULAR VOLUME 89 FL (80-99); MEAN PLATELET VOLUME 10.9 FL (7.4-10.4); MONOCYTES # (AUTO) 0.7 X 10^3 (0.0-1.0); MONOCYTES % (AUTO) 12 % (0-12); NEUTROPHILS # (AUTO) 3.3 X 10^3 (1.8-7.8); NEUTROPHILS % (AUTO) 57 % (42-75); PLATELET COUNT 287 10^3/uL (130-400); RED CELL DISTRIBUTION WIDTH 13.8 % (10.0-14.5); RETICULOCYTE % 1.35 % (0.50-2.40); WHITE BLOOD COUNT 5.9 10^3/uL (4.3-11.0)
[2019-02-24 04:49] LABS: BUN/CREATININE RATIO 14; CALCIUM 8.5 MG/DL (8.5-10.1); CARBON DIOXIDE 21 MMOL/L (21-32); CHLORIDE 106 MMOL/L (98-107); GFR ESTIMATED > 60; GLUCOSE 86 MG/DL (70-105); POTASSIUM 3.7 MMOL/L (3.6-5.0); SODIUM 139 MMOL/L (135-145)
[2019-02-24 05:41] LABS: EOSINOPHILS % (MANUAL) 6 %; LYMPHOCYTES % (MANUAL) 28 %; MONOCYTES % (MANUAL) 9 %; NEUTROPHILS % (MANUAL) 57 %
[2019-02-24] MEDS: CATHETER FLUSH 10 ML SYR IV SCH (06:47)
[2019-02-24 07:30] VITALS: BP 182/76
[2019-02-24] MEDS: SENNA W/DOCUSATE (SENOKOT S) TABLET PO SCH (08:41)
[2019-02-24] MEDS: CARVEDILOL 12.5 MG (COREG) TABLET PO SCH (08:41)
[2019-02-24] MEDS: LOSARTAN 100 MG (COZAAR) TABLET PO SCH (08:41)
[2019-02-24] MEDS: ASPIRIN E.C. 81 MG (ECOTRIN) TAB PO SCH (08:41)
[2019-02-24] MEDS: CLOPIDOGREL 75 MG (PLAVIX) TABLET PO SCH (08:41)
[2019-02-24] MEDS: ENOXAPARIN 40 MG/0.4 ML (LOVENOX) SYR SC SCH (08:42)
[2019-02-24] MEDS ORDERED: ASPIRIN E.C. 81 MG (ECOTRIN) TAB PO SCH (09:00)
[2019-02-24] MEDS ORDERED: CLOPIDOGREL 75 MG (PLAVIX) TABLET PO SCH (09:00)
[2019-02-24] MEDS ORDERED: CRV25T PO (09:17)
[2019-02-24] MEDS: RT-ALBUTEROL SULF 2.5 MG/3 ML PRE-MIX VIAL INH SCH (09:37)
[2019-02-24] MEDS ORDERED: DICL100G31 TD (10:21)
--- NOTE | 2019-02-24 10:24 | NUR ---
SPOKE WITH THE PT WELL CALLING [facility] AND GOING THRU THE EXT MED HISTORY TO COMPLETE THE MED REC. PT WAS ABLE TO TELL ME HOW/WHEN SHE TAKES HER MEDICATIONS. PLAVIX: THIS WAS SENT IN TO [facility] ON 02-21-2019 (AND SHE WAS LATER ADMITTED) BY DR. HODGE. THE PT DID NOT KNOW ANYTHING ABOUT THIS SCRIPT AND HAS NOT PICKED IT UP. FOR THESE REASONS I DID NOT INCLUDE THIS ON THE MED REC. POTASSIUM AND LASIX HAVE NOT BEEN FILLED SINCE 09-25-2018 #90. PT INDICATES SHE DOES NOT TAKES THIS ALL THE TIME AND TAKES WHEN SHE REMEMBERS NEEDED. 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
[2019-02-24] MEDS ORDERED: MULT-974 PO (10:29)
[2019-02-24] MEDS ORDERED: FISH1CAP15 PO (10:29)
[2019-02-24 11:30] VITALS: BP 161/79
[2019-02-24] MEDS ORDERED: AZIT250T12 PO (11:33)
[2019-02-24] MEDS ORDERED: CLOP75TA28 PO (11:33)
[2019-02-24] MEDS ORDERED: ATOR40TA70 PO (11:33)
--- NOTE | 2019-02-24 11:36 | Discharge Instructions ---
Discharge [facility] Discharge Medications New, Converted or Re-Newed RX: Transmitted to Pharmacy New Medications: Atorvastatin Calcium (Atorvastatin Calcium) 40 Mg Tablet 40 MG PO DAILY, #30 TAB 0 Refills Azithromycin (Azithromycin) 250 Mg Tablet 250 MG PO HS, #3 TAB 0 Refills Clopidogrel Bisulfate (Clopidogrel) 75 Mg Tablet 75 MG PO DAILY, #30 TAB 0 Refills Continued Medications: Aspirin (Aspirin) 325 Mg Tablet 325 MG PO HS, TAB Carvedilol (Coreg) 25 Mg Tab 25 MG PO BID, TAB Diclofenac Sodium (Diclofenac Sodium) 100 Gm Gel..gram. 2 GM TD QID PRN for ARTHRITIS PAIN Fish Oil/Dha/Epa (Fish Oil 1,200 mg Fish Oil) 1 Each Capsule 1 EACH PO DAILY, CAP Furosemide (Lasix) 40 Mg Tablet 40 MG PO DAILY PRN for FLUID RETENTION for 30 Days, TAB Hydrocodone/Acetaminophen (Hydrocodone-Acetamin 7.5-325) 1 Each Tablet 1 TAB PO TID PRN for PAIN-MODERATE (5-7), TAB Losartan Potassium (Losartan Potassium) 100 Mg Tablet 100 MG PO DAILY, TAB Multivitamin (Multi-Vitamin Daily) 1 Each Tablet 1 EACH PO DAILY, TAB Nitroglycerin (Nitroglycerin) 0.4 Mg Tab.subl 0.4 MG SL UD PRN for CHEST PAIN for 30 Days, TAB Potassium Chloride (Potassium Chloride) 10 Meq Capsule.er 10 MEQ PO DAILY PRN for FLUID RETENTION for 30 Days, CAP Patient Instructions Goal/Follow Up Appt: Follow up with Dr. Herrera on 03/02 at 11 am. Follow up with Dr. Shahid as directed. Return to The [facility] For: Chest pain, shortness of breath Activity & Diet Discharge Diet: Cardiac Diet Copy Copies To 1: DONNA HERRERA MD, BETHANY N MD Feb 24, 2019 11:36
--- NOTE | 2019-02-24 12:45 | Cardiology Progress Note ---
Cardiology SOAP Progress Note Subjective: No further chest tightness or shortness of breath. Objective: I&O/Vital Signs 02/24/19 02/24/19 02/24/19 02/24/19 04:00 04:00 07:00 07:30 Temp 36.6 37.9 Pulse 80 115 86 Resp 16 18 B/P (MAP) 156/64 (94) 182/76 (111) Pulse Ox 99 99 96 O2 Delivery Nasal Cannula Room Air Room Air O2 Flow Rate 2.00 02/24/19 02/24/19 02/24/19 08:00 09:00 09:37 Pulse Ox 93 O2 Delivery Room Air Room Air Room Air 02/24/19 00:00 Intake Total 1600 ml Output Total 1200 ml Balance 400 ml Constitutional: AAO x 3 Respiratory: chest is bilaterally symmetric, lungs clear to auscultation Cardiovascular: regular rate-rhythm, S1 and S2 Gastrointestional: soft, audible bowel sounds Extremities: normal range of motion, non-tender, normal inspection, no lower extremity edema bilateral Neurologic/Psychiatric: no motor/sensory deficits, alert, normal mood/affect, oriented x 3 Skin: normal color Results/Procedures: Labs Laboratory Tests 02/24/19 03:52: White Blood Count 5.9, Red Blood Count 3.39L, Hemoglobin 9.7L, Hematocrit 30L, Mean Corpuscular Volume 89, Mean Corpuscular Hemoglobin 29, Mean Corpuscular Hemoglobin Concent 32, Red Cell Distribution Width 13.8, Platelet Count 287, Mean Platelet Volume 10.9H, Neutrophils (%) (Auto) 57, Lymphocytes (%) (Auto) 27, Monocytes (%) (Auto) 12, Eosinophils (%) (Auto) 4, Basophils (%) (Auto) 0, Neutrophils # (Auto) 3.3, Lymphocytes # (Auto) 1.6, Monocytes # (Auto) 0.7, Eosinophils # (Auto) 0.2, Basophils # (Auto) 0.0, Neutrophils % (Manual) 57, Lymphocytes % (Manual) 28, Monocytes % (Manual) 9, Eosinophils % (Manual) 6, Absolute Reticulocyte Count 46, Percent Reticulocyte Count 1.35, Sodium Level 139, Potassium Level 3.7, Chloride Level 106, Carbon Dioxide Level 21, Anion Gap 12, Blood Urea Nitrogen 10, Creatinine 0.70, Estimat Glomerular Filtration Rate > 60, BUN/Creatinine Ratio 14, Glucose Level 86, Calcium Level 8.5, Iron Level 24L, Total Iron Binding Capacity 227L, Unsaturated Iron Binding Capacity 203, Transferrin % Saturation 11L Microbiology 02/21/19 Blood Culture - Preliminary, Resulted No growth A/P: Assessment/Dx: Pneumonia, Acute diastolic congestive heart failure, Non-STEMI, tinnitus post-PCI to left circumflex artery with 2 drug-eluting stents and PTCA to severe in-stent restenosis in a stent to the ramus. Hypertension, hyperlipidemia Plan: Pneumonia, antibiotics. Defer to the primary team. Acute diastolic congestive heart failure, Lasix. Echocardiogram showed normal LV function with diastolic dysfunction. Mild to moderate right cuspid regurgitation. Non-STEMI, continue dual antiplatelet therapy. Coronary angiography on 02/23/2019. Coronary angiography showed severe tandem lesions in the left circumflex artery treated with 2 drug-eluting stents. Severe in-stent restenosis in a stent supplying the ramus intermedius branch. Successful PTCA. Resolution of chest pain and shortness of breath. Okay to discharge today on long-term dual antiplatelet therapy. The patient will follow with Dr. Miranda in [place] in the next one to 2 weeks. I did advise the patient and family that if for some reason they cannot follow Dr. Miranda I'll be happy to see the patient in the interim. Hyperlipidemia: Continue atorvastatin. Hypertension: Continue outpatient medical therapy. Thank you for your consultation. Please call me if you have any questions. Yaakov Shahid MD, FACP, FACC, FSCAI, FHRS, CCDS Interventional Cardiology Cardiac Electrophysiology Vascular Medicine and Endovascular Interventions Focused Exam Lactate Level 02/21/19 19:30: Lactic Acid Level 1.01 Clinical Quality Measures AMI/AHF: ASA po Prior to arrival: Kandace Velasco MD Feb 24, 2019 12:45
[2019-02-24] MEDS ORDERED: ASPI-983 PO (12:50)
--- NOTE | 2019-02-24 15:24 | Discharge Summary ---
Discharge Summary Hospital Course Problems/Diagnosis: (1) Chest pain Assessment & Plan: Cardiology consulted, appreciate recommendations, plan for cardiac cath today. 02/24 cath done yesterday with balloon angioplasty to severe in-stent restenosis of proximal ramus and drug eluting stent x 2 to left circumflex (2) Left lower lobe pulmonary infiltrate Assessment & Plan: On azithromycin and ceftriaxone for community acquired pneumonia Discharged with completion of azithromycin course (3) Anemia Assessment & Plan: Check iron studies and peripheral smear. Note of normal hemoglobin in May 2018, very slight anemia in 11/2018 in clinic records. pending at d/c (4) Hypokalemia Status: Acute Assessment & Plan: Replace and follow Hospital Course Date of Admission: Feb 21, 2019 at 19:13 Admission Diagnosis : Family Physician/Provider: Donna Herrera MD Date of Discharge: 02/24/19 Discharge Diagnosis: see problem list Hospital Course: See problem list Labs and Pending Lab Test: Laboratory Tests 02/24/19 03:52: White Blood Count 5.9, Red Blood Count 3.39L, Hemoglobin 9.7L, Hematocrit 30L, Mean Corpuscular Volume 89, Mean Corpuscular Hemoglobin 29, Mean Corpuscular Hemoglobin Concent 32, Red Cell Distribution Width 13.8, Platelet Count 287, Mean Platelet Volume 10.9H, Neutrophils (%) (Auto) 57, Lymphocytes (%) (Auto) 27, Monocytes (%) (Auto) 12, Eosinophils (%) (Auto) 4, Basophils (%) (Auto) 0, Neutrophils # (Auto) 3.3, Lymphocytes # (Auto) 1.6, Monocytes # (Auto) 0.7, Eosinophils # (Auto) 0.2, Basophils # (Auto) 0.0, Neutrophils % (Manual) 57, Lym phocytes % (Manual) 28, Monocytes % (Manual) 9, Eosinophils % (Manual) 6, Absolute Reticulocyte Count 46, Percent Reticulocyte Count 1.35, Sodium Level 139, Potassium Level 3.7, Chloride Level 106, Carbon Dioxide Level 21, Anion Gap 12, Blood Urea Nitrogen 10, Creatinine 0.70, Estimat Glomerular Filtration Rate > 60, BUN/Creatinine Ratio 14, Glucose Level 86, Calcium Level 8.5, Iron Level 24L, Total Iron Binding Capacity 227L, Unsaturated Iron Binding Capacity 203, Transferrin % Saturation 11L, Ferritin [Pending] Microbiology 02/21/19 Blood Culture - Preliminary, Resulted No growth Home Meds Active Aspirin EC (Aspirin) 81 Mg Tablet.dr 81 Mg PO DAILY 30 Days Atorvastatin Calcium 40 Mg Tablet 40 Mg PO DAILY Clopidogrel (Clopidogrel Bisulfate) 75 Mg Tablet 75 Mg PO DAILY Azithromycin 250 Mg Tablet 250 Mg PO HS Reported Fish Oil 1,200 mg Fish Oil (Fish Oil/Dha/Epa) 1 Each Capsule 1 Each PO DAILY Multi-Vitamin Daily (Multivitamin) 1 Each Tablet 1 Each PO DAILY Diclofenac Sodium 100 Gm Gel..gram. 2 Gm TD QID PRN Coreg (Carvedilol) 25 Mg Tab 25 Mg PO BID Hydrocodone-Acetamin 7.5-325 (Hydrocodone/Acetaminophen) 1 Each Tablet 1 Tab PO TID PRN Lasix (Furosemide) 40 Mg Tablet 40 Mg PO DAILY PRN 30 Days Nitroglycerin 0.4 Mg Tab.subl 0.4 Mg SL UD PRN 30 Days Potassium Chloride 10 Meq Capsule.er 10 Meq PO DAILY PRN 30 Days Losartan Potassium 100 Mg Tablet 100 Mg PO DAILY Assessment/Pt DC Instructions See problem list Discharge Diet: Cardiac Diet Discharge Physical Examination Allergies: Coded Allergies: No Known Drug Allergies (Unverified , 02/20/19) General Appearance: No Apparent Distress Respiratory: Lungs Clear, Normal Breath Sounds Cardiovascular: Regular Rate, Rhythm Gastrointestinal: Normal Bowel Sounds, Non Tender, Soft Neurologic/Psychiatric: Alert, Normal Mood/Affect Copy Copies To 1: DONNA HERRERA MD Discharge Summary Date of Admission Feb 21, 2019 at 19:13 Date of Discharge Feb 24, 2019 at 13:00 Discharge Date: Feb 24, 2019 Admission Diagnosis Assessment: Unstable angina CAD h/o CABG LLL infiltrate? no fever or elevated wbc but empirically placed on abx and nebs and IS in meantime HTN HLP Plan: Cath in am Abx empiric Nebs O2 Lovenox Discharge Diagnosis (1) Unstable angina (2) Left lower lobe pulmonary infiltrate (3) Hypertension (4) Hyperlipidemia (5) Chest pain on exertion Status: Acute (6) Acute exacerbation of congestive heart failure Status: Acute (7) Dyspnea Status: Acute (8) Orthopnea Status: Acute Clinical Quality Measures AMI/AHF: ASA po Prior to arrival: No DVT/VTE Risk/Contraindication: Risk Factor Score Per Nursin RFS Level Per Nursing on Admit: 2=Moderate COLLEEN ELIAS MD Feb 24, 2019 15:24
== END 2019-02-24 13:00 | disposition home or self-care (01) | DRG 246 ==
LOC: EDUNIT# 18:14 → ER 18:16 → CSD 19:13
PROVIDERS: ADMIT Internal Medicine; ATTEND Family Medicine
PROC: 027035Z Dilation of Coronary Artery, One Artery with Two Drug-eluting Intraluminal Devices, Percutaneous Approach (ICD-10-PCS; principal; 2019-02-23)
PROC: 02703ZZ Dilation of Coronary Artery, One Artery, Percutaneous Approach (ICD-10-PCS; 2019-02-23)
PROC: 4A023N7 Measurement of Cardiac Sampling and Pressure, Left Heart, Percutaneous Approach (ICD-10-PCS; 2019-02-23)
PROC: B2111ZZ Fluoroscopy of Multiple Coronary Arteries using Low Osmolar Contrast (ICD-10-PCS; 2019-02-23)
PROC: B2181ZZ Fluoroscopy of Left Internal Mammary Bypass Graft using Low Osmolar Contrast (ICD-10-PCS; 2019-02-23)
PROC: B3101ZZ Fluoroscopy of Thoracic Aorta using Low Osmolar Contrast (ICD-10-PCS; 2019-02-23)
DX: I21.4 Non-ST elevation (NSTEMI) myocardial infarction (principal); I50.31 Acute diastolic (congestive) heart failure; J18.9 Pneumonia, unspecified organism; I13.0 Hypertensive heart and chronic kidney disease with heart failure and stage 1 through stage 4 chronic kidney disease, or unspecified chronic kidney disease; T82.855A Stenosis of coronary artery stent, initial encounter; E78.00 Pure hypercholesterolemia, unspecified; I25.119 Atherosclerotic heart disease of native coronary artery with unspecified angina pectoris; N18.3 Chronic kidney disease, stage 3 (moderate); M47.22 Other spondylosis with radiculopathy, cervical region; E87.6 Hypokalemia; E78.5 Hyperlipidemia, unspecified; D64.9 Anemia, unspecified; Y83.8 Other surgical procedures as the cause of abnormal reaction of the patient, or of later complication, without mention of misadventure at the time of the procedure; Z79.82 Long term (current) use of aspirin; Z95.1 Presence of aortocoronary bypass graft; Z85.038 Personal history of other malignant neoplasm of large intestine
CPT/HCPCS: 36221; 36415; 71045; 71046; 80048; 80053; 80061; 82728; 83540; 83605; 83735; 83874; 84484; 85007; 85025; 85027; 85045; 85347; 85610; 85730; 87040; 93041; 93306; 93458; 94640; 94664; 94760; 96374

== ENCOUNTER 2019-08-15 05:02 | Emergency (ER) | payer MEDICARE ==
[~2019-08-15] VITALS: Ht 152 cm; Wt 53.2 kg
[~2019-08-15 05:02] MED LIST changes: +ASPI-983 PO; +ATOR40TA70 PO; +AZIT250T12 PO; +CLOP75TA28 PO; +CRV25T PO; +DICL100G31 TD; +FISH1CAP15 PO; +HYDR-34 PO; -HYDR-3816 PO; +MULT-974 PO
[2019-08-15] MEDS ORDERED: RT-ALBUTEROL SULF 2.5 MG/3 ML PRE-MIX VIAL ONE (05:13)
--- OUTSIDE RECORDS SUMMARY | 2019-08-15 05:13 | XMS REPORT | Continuity of Care Document ---
Author Organization Unknown Address Unknown Phone Unavailable Allergies Active Description Code Type Severity Reaction Onset Reported/Identified Relationship to Patient Clinical Status Yes No Known Drug Allergies [id number] Drug Allergy Unknown N/A 02/20/2019 Medications There is no data. 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 02/21/2019 BURK DO, ALVARO Ot I50.23 ACUTE ON CHRONIC SYSTOLIC (CONGESTIVE) H 02/21/2019 BURK DO, ALVARO Ot M19.90 UNSPECIFIED OSTEOARTHRITIS, UNSPECIFIED 02/21/2019 ALVARO BURK DO Ot N18.9 CHRONIC KIDNEY DISEASE, UNSPECIFIED 02/21/2019 ALVARO BURK DO, Ot Z95.1 PRESENCE OF AORTOCORONARY BYPASS GRAFT 02/24/2019 COLLEEN ELIAS MD, Ot D64 .9 ANEMIA, UNSPECIFIED 02/24/2019 COLLEEN ELIAS MD, Ot E78.00 PURE HYPERCHOLESTEROLEMIA, UNSPECIFIED 02/24/2019 COLLEEN ELIAS MD, Ot E78 .5 HYPERLIPIDEMIA, UNSPECIFIED 02/24/2019 COLLEEN ELIAS MD, Ot E87 .6 HYPOKALEMIA 02/24/2019 CLOLEEN ELIAS MD, Ot I13 .0 HYP HRT CHR [facility] DIS W HRT FAIL AND ST 02/24/2019 COLLEEN ELIAS MD, Ot I21 .4 NON-ST ELEVATION (NSTEMI) MYOCARDIAL INF 02/24/2019 COLLEEN ELIAS MD, Ot I25.119 ATHSCL HEART DISEASE OF 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 03/06/2019 BURK DO, ALVARO Ot I50.23 ACUTE ON CHRONIC SYSTOLIC (CONGESTIVE) H 03/06/2019 BURK DO, ALVARO Ot M19.90 UNSPECIFIED OSTEOARTHRITIS, UNSPECIFIED 03/06/2019 BURK DO, ALVARO Ot N18.9 CHRONIC KIDNEY DISEASE, UNSPECIFIED 03/06/2019 BURK DO, ALVARO Ot Z95.1 PRESENCE OF AORTOCORONARY BYPASS GRAFT Procedures Code Description Performed By [place] formed [place] [id number] DI LATION OF 1 COR ART WITH 2 DRUG-ELUT, 02/23/2019 12961SP DI LATION OF CORONARY ARTERY, ONE ARTERY, 02/23/2019 [id number] ME ASURE OF CARDIAC SAMPL PRESSURE, L H 02/23/2019 [id number] FL UOROSCOPY OF MULT COR ART USING L OSM 02/23/2019 [id number] FL UOROSCOPY OF L INT MAMM GRAFT USING L 02/23/2019 [id number] FL UOROSCOPY OF THORACIC AORTA USING LOW 02/23/2019 Results Test Result Range PDM - 09 PANEL (PROFILE 1) - 05/05/18 12 :26 Prescribed Drug 1 Hydrocodone NRG Creatinine 99.8 mg/dL > or = 20.0 pH 7.88 4.5 - 9.0 Oxidant NEGATIVE mcg/mL <200 Amphetamines NEGATIVE ng/mL <500 medMATCH Amphetamines CONSISTENT NRG Benzodiazepines NEGATIVE ng/mL <100 medMATCH Benzodiazepines CONSISTENT NRG Marijuana Metabolite NEGATIVE ng/mL <20 medMATCH Marijuana Metab CONSISTENT NRG Cocaine Metabolite NEGATIVE ng/mL <150 medMATCH Cocaine Metab CONSISTENT NRG Opiates POSITIVE ng/mL <100 Oxycodone NEGATIVE ng/mL <100 medMATCH Oxycodone CONSISTENT NRG COMMENT NRG Codeine NEGATIVE ng/mL <50 medMATCH Codeine CONSISTENT NRG Hydrocodone 526 ng/mL <50 medMATCH Hydrocodone CONSISTENT NRG Hydromorphone 654 ng/mL <50 medMATCH Hydromorphone CONSISTENT NRG Morphine NEGATIVE ng/mL <50 medMATCH Morphine CONSISTENT NRG Norhydrocodone 1662 ng/mL <50 medMATCH Norhydrocodone CONSISTENT NRG Barbiturates NEGATIVE ng/mL <300 medMATCH Barbiturates CONSISTENT NRG Methadone Metabolite NEGATIVE ng/mL <100 medMATCH Methadone Metab CONSISTENT NRG Phencyclidine NEGATIVE ng/mL <25 medMATCH Phencyclidine CONSISTENT NRG CBC - 11/07/18 09:10 WHITE BLOOD CELL COUNT 5.9 Thousand/uL 3 .8-10.8 RED BLOOD CELL COUNT 3.87 Million/uL 3.8 0-5.10 HEMOGLOBIN 11.1 g/dL 11.7-15.5 HEMATOCRIT 33.7 % 35.0-45.0 MCV 87.1 fL 80.0-100.0 MCH 28.7 pg 27.0-33.0 MCHC 32.9 g/dL 32.0-36.0 RDW 13.5 % 11.0-15.0 PLATELET COUNT 250 Thousand/uL 140-400 MPV 10.4 fL 7.5-12.5 ABSOLUTE NEUTROPHILS 3345 cells/uL 1500- 7800 ABSOLUTE LYMPHOCYTES 1723 cells/uL 850-3 900 ABSOLUTE MONOCYTES 572 cells/uL 200-950 ABSOLUTE EOSINOPHILS 230 cells/uL 15-500 ABSOLUTE BASOPHILS 30 cells/uL 0-200 NEUTROPHILS 56.7 % NRG LYMPHOCYTES 29.2 % NRG MONOCYTES 9.7 % NRG EOSINOPHILS 3.9 % NRG BASOPHILS 0.5 % NRG Complete blood count (CBC) with automate d white blood cell (WBC) differential - 02/20/19 14:30 Blood leukocytes automated count (number/volume) 7.9 10*3/uL 4.3-11.0 Blood erythrocytes automated count (number/volume) 3.78 10*6/uL 4.35-5.85 Venous blood hemoglobin measurement (mass/volume) 10.8 g/dL 11.5-16.0 Blood hematocrit (volume fraction) 33 % 35-52 Automated erythrocyte mean corpuscular volume 88 [ foz_us] 80-99 Automated erythrocyte mean corpuscular h emoglobin (mass per erythrocyte) 29 pg 25-34 Automated erythrocyte mean corpuscular h emoglobin concentration measurement (mass/volume) 32 g/dL 32-36 Automated erythrocyte distribution width ratio 13. 4 % 10.0- 14.5 Automated blood platelet count (count/volume) 327 10*3/uL 130-400 Automated blood platelet mean volume measurement 10.6 [foz_us] 7.4-10.4 Automated blood neutrophils/100 leukocytes 61 % 42-75 Automated blood lymphocytes/100 leukocytes 24 % 12-44 Blood monocytes/100 leukocytes 8 % 0-12 Automated blood eosinophils/100 leukocytes 6 % 0-10 Automated blood basophils/100 leukocytes 1 % 0-10 Blood neutrophils automated count (number/volume) 4.8 10*3 1.8-7.8 Blood lymphocytes automated count (number/volume) 1.9 10*3 1.0-4.0 Blood monocytes automated count (number/volume) 0. 7 10*3 0.0-1.0 Automated eosinophil count 0.5 10*3/uL 0 .0-0.3 Automated blood basophil count (count/volume) 0.0 10*3/uL 0.0-0.1 Comprehensive metabolic panel - 02/20/19 14:30 Serum or plasma sodium measurement (moles/volume) 134 mmol/L 135-145 Serum or plasma potassium measurement (moles/volume) 3.3 mmol/L 3.6-5.0 Serum or plasma chloride measurement (moles/volume) 95 mmol/L 98-107 Carbon dioxide 22 mmol/L 21-32 Serum or plasma anion gap determination (moles/volume) 17 mmol/L 5-14 Serum or plasma urea nitrogen measurement (mass/volume ) 27 mg/dL 7-18 Serum or plasma creatinine measurement (mass/volume) 1.04 mg/dL 0.60-1.30 Serum or plasma urea nitrogen/creatinine mass ratio 26 NRG Serum or plasma creatinine measurement w ith calculation of estimated glomerular filtration rate 51 NRG Serum or plasma glucose measurement (mass/volume) 115 mg/dL 70-105 Serum or plasma calcium measurement (mass/volume) 9.4 mg/dL 8.5-10.1 Serum or plasma total bilirubin measurement (mass/volu me) 0.7 mg/dL 0.1-1.0 Serum or plasma alkaline phosphatase maggie surement (enzymatic activity/volume) 114 U/L 40-136 Serum or plasma aspartate aminotransfera se measurement (enzymatic activity/volume) 25 U/L 5-34 Serum or plasma alanine aminotransferase measurement (enzymatic activity/volume) 13 U/L 0-55 Serum or plasma protein measurement (mass/volume) 6.9 g/dL 6.4-8.2 Serum or plasma albumin measurement (mass/volume) 4.1 g/dL 3.2-4.5 CALCIUM CORRECTED 9.3 mg/dL 8.5-10.1 TROPONIN I FS - 02/20/19 14:30 TROPONIN I FS < 0.30 <0.30 PROBNP FS - 02/20/19 14:30 PROBNP FS 530.7 pg/mL <75.0 PT panel in platelet poor plasma by coag ulation assay - 02/20/19 14:30 Prothrombin time (PT) in platelet poor plasma by coagu lation assay 13.7 s 12.2-14.7 INR in platelet poor plasma or blood by coagulation as say 1.0 0.8-1.4 Activated partial thromboplastin time (a PTT) in platelet poor plasma bycoagulation assay - 02/20/19 14:30 Activated partial thromboplastin time (a PTT) in platelet poor plasma bycoagulation assay 26 s 24-35 Fibrin D-dimer FEU measurement in platel et poor plasma (mass/volume) - 02/20/19 14:30 Fibrin D-dimer FEU measurement in platelet poor plasma (mass/volume) 3.38 ug/mL 0.00-0.49 Serum or plasma troponin i.cardiac measu rement (mass/volume) - 02/20/19 20:28 Serum or plasma troponin i.cardiac measurement (mass/v olume) < ng/mL <0.028 Complete blood count (CBC) with automate d white blood cell (WBC) differential - 02/21/19 03:04 Blood leukocytes automated count (number/volume) 6.2 10*3/uL 4.3-11.0 Blood erythrocytes automated count (number/volume) 3.36 10*6/uL 4.35-5.85 Venous blood hemoglobin measurement (mass/volume) 9.4 g/dL 11.5-16.0 Blood hematocrit (volume fraction) 30 % 35-52 Automated erythrocyte mean corpuscular volume 88 [ foz_us] 80-99 Automated erythrocyte mean corpuscular h emoglobin (mass per erythrocyte) 28 pg 25-34 Automated erythrocyte mean corpuscular h emoglobin concentration measurement (mass/volume) 32 g/dL 32-36 Automated erythrocyte distribution width ratio 13. 8 % 10.0- 14.5 Automated blood platelet count (count/volume) 320 10*3/uL 130-400 Automated blood platelet mean volume measurement 10.6 [foz_us] 7.4-10.4 Automated blood neutrophils/100 leukocytes 47 % 42-75 Automated blood lymphocytes/100 leukocytes 36 % 12-44 Blood monocytes/100 leukocytes 11 % 0-12 Automated blood eosinophils/100 leukocytes 7 % 0-10 Automated blood basophils/100 leukocytes 1 % 0-10 Blood neutrophils automated count (number/volume) 2.9 10*3 1.8-7.8 Blood lymphocytes automated count (number/volume) 2.2 10*3 1.0-4.0 Blood monocytes automated count (number/volume) 0. 7 10*3 0.0-1.0 Automated eosinophil count 0.4 10*3/uL 0 .0-0.3 Automated blood basophil count (count/volume) 0.0 10*3/uL 0.0-0.1 Comprehensive metabolic panel - 02/21/19 03:04 Serum or plasma sodium measurement (moles/volume) 136 mmol/L 135-145 Serum or plasma potassium measurement (moles/volume) 3.6 mmol/L 3.6-5.0 Serum or plasma chloride measurement (moles/volume) 101 mmol/L 98-107 Carbon dioxide 20 mmol/L 21-32 Serum or plasma anion gap determination (moles/volume) 15 mmol/L 5-14 Serum or plasma urea nitrogen measurement (mass/volume ) 27 mg/dL 7-18 Serum or plasma creatinine measurement (mass/volume) 1.17 mg/dL 0.60-1.30 Serum or plasma urea nitrogen/creatinine mass ratio 23 NRG Serum or plasma creatinine measurement w ith calculation of estimated glomerular filtration rate 45 NRG Serum or plasma glucose measurement (mass/volume) 77 mg/dL 70-105 Serum or plasma calcium measurement (mass/volume) 8.7 mg/dL 8.5-10.1 Serum or plasma total bilirubin measurement (mass/volu me) 0.9 mg/dL 0.1-1.0 Serum or plasma alkaline phosphatase maggie surement (enzymatic activity/volume) 86 U/L 40-136 Serum or plasma aspartate aminotransfera se measurement (enzymatic activity/volume) 20 U/L 5-34 Serum or plasma alanine aminotransferase measurement (enzymatic activity/volume) 15 U/L 0-55 Serum or plasma protein measurement (mass/volume) 5.7 g/dL 6.4-8.2 Serum or plasma albumin measurement (mass/volume) 3.5 g/dL 3.2-4.5 CALCIUM CORRECTED 9.1 mg/dL 8.5-10.1 Serum or plasma troponin i.cardiac measu rement (mass/volume) - 02/21/19 03:04 Serum or plasma troponin i.cardiac measurement (mass/v olume) 0.051 ng/mL <0.028 Serum or plasma troponin i.cardiac measu rement (mass/volume) - 02/21/19 08:05 Serum or plasma troponin i.cardiac measurement (mass/v olume) 0.031 ng/mL <0.028 Complete blood count (CBC) with automate d white blood cell (WBC) differential - 02/21/19 18:26 Blood leukocytes automated count (number/volume) 7.3 10*3/uL 4.3-11.0 Blood erythrocytes automated count (number/volume) 3.93 10*6/uL 4.35-5.85 Venous blood hemoglobin measurement (mass/volume) 11.4 g/dL 11.5-16.0 Blood hematocrit (volume fraction) 34 % 35-52 Automated erythrocyte mean corpuscular volume 88 [ foz_us] 80-99 Automated erythrocyte mean corpuscular h emoglobin (mass per erythrocyte) 29 pg 25-34 Automated erythrocyte mean corpuscular h emoglobin concentration measurement (mass/volume) 33 g/dL 32-36 Automated erythrocyte distribution width ratio 13. 7 % 10.0- 14.5 Automated blood platelet count (count/volume) 338 10*3/uL 130-400 Automated blood platelet mean volume measurement 10.9 [foz_us] 7.4-10.4 Automated blood neutrophils/100 leukocytes 56 % 42-75 Automated blood lymphocytes/100 leukocytes 28 % 12-44 Blood monocytes/100 leukocytes 11 % 0-12 Automated blood eosinophils/100 leukocytes 5 % 0-10 Automated blood basophils/100 leukocytes 1 % 0-10 Blood neutrophils automated count (number/volume) 4.1 10*3 1.8-7.8 Blood lymphocytes automated count (number/volume) 2.0 10*3 1.0-4.0 Blood monocytes automated count (number/volume) 0. 8 10*3 0.0-1.0 Automated eosinophil count 0.3 10*3/uL 0 .0-0.3 Automated blood basophil count (count/volume) 0.1 10*3/uL 0.0-0.1 PT panel in platelet poor plasma by coag ulation assay - 02/21/19 18:26 Prothrombin time (PT) in platelet poor plasma by coagu lation assay 13.6 s 12.2-14.7 INR in platelet poor plasma or blood by coagulation as say 1.0 0.8-1.4 Activated partial thromboplastin time (a PTT) in platelet poor plasma bycoagulation assay - 02/21/19 18:26 Activated partial thromboplastin time (a PTT) in platelet poor plasma bycoagulation assay 20 s 24-35 Comprehensive metabolic panel - 02/21/19 18:26 Serum or plasma sodium measurement (moles/volume) 137 mmol/L 135-145 Serum or plasma potassium measurement (moles/volume) 3.8 mmol/L 3.6-5.0 Serum or plasma chloride measurement (moles/volume) 98 mmol/L 98-107 Carbon dioxide 22 mmol/L 21-32 Serum or plasma anion gap determination (moles/volume) 17 mmol/L 5-14 Serum or plasma urea nitrogen measurement (mass/volume ) 24 mg/dL 7-18 Serum or plasma creatinine measurement (mass/volume) 1.04 mg/dL 0.60-1.30 Serum or plasma urea nitrogen/creatinine mass ratio 23 NRG Serum or plasma creatinine measurement w ith calculation of estimated glomerular filtration rate 51 NRG Serum or plasma glucose measurement (mass/volume) 104 mg/dL 70-105 Serum or plasma calcium measurement (mass/volume) 8.9 mg/dL 8.5-10.1 Serum or plasma total bilirubin measurement (mass/volu me) 0.9 mg/dL 0.1-1.0 Serum or plasma alkaline phosphatase maggie surement (enzymatic activity/volume) 103 U/L 40-136 Serum or plasma aspartate aminotransfera se measurement (enzymatic activity/volume) 31 U/L 5-34 Serum or plasma alanine aminotransferase measurement (enzymatic activity/volume) 20 U/L 0-55 Serum or plasma protein measurement (mass/volume) 6.7 g/dL 6.4-8.2 Serum or plasma albumin measurement (mass/volume) 4.1 g/dL 3.2-4.5 CALCIUM CORRECTED 8.8 mg/dL 8.5-10.1 Magnesium - 02/21/19 18:26 Magnesium 1.6 mg/dL 1.6-2.4 Myoglobin, serum - 02/21/19 18:26 Myoglobin, serum 268.6 ng/mL 10.0-92.0 Serum or plasma troponin i.cardiac measu rement (mass/volume) - 02/21/19 18:26 Serum or plasma troponin i.cardiac measurement (mass/v olume) < ng/mL <0.028 Blood lactic acid measurement (moles/vol ume) - 02/21/19 19:30 Blood lactic acid measurement (moles/volume) 1.01 mmol/L 0.50-2.00 Bacterial blood culture - 02/21/19 19:30 Bacterial blood culture NG NRG Bacterial blood culture - 02/21/19 19:57 Bacterial blood culture NG NRG Serum or plasma troponin i.cardiac measu rement (mass/volume) - 02/21/19 23:58 Serum or plasma troponin i.cardiac measurement (mass/v olume) < ng/mL <0.028 Serum or plasma troponin i.cardiac measu rement (mass/volume) - 02/22/19 05:50 Serum or plasma troponin i.cardiac measurement (mass/v olume) 0.040 ng/mL <0.028 Lipid 1996 panel - 02/22/19 05:50 Serum or plasma triglyceride measurement (mass/volume) 83 mg/dL <150 Serum or plasma cholesterol measurement (mass/volume) 168 mg/dL < 200 Serum or plasma cholesterol in HDL measurement (mass/v olume) 53 mg/dL 40-60 Cholesterol in LDL [mass/volume] in serum or plasma by direct assay 111 mg/dL 1-129 Serum or plasma cholesterol in VLDL measurement (mass/ volume) 17 mg/dL 5-40 Complete blood count (CBC) with automate d white blood cell (WBC) differential - 02/23/19 03:56 Blood leukocytes automated count (number/volume) 5.1 10*3/uL 4.3-11.0 Blood erythrocytes automated count (number/volume) 3.26 10*6/uL 4.35-5.85 Venous blood hemoglobin measurement (mass/volume) 9.2 g/dL 11.5-16.0 Blood hematocrit (volume fraction) 29 % 35-52 Automated erythrocyte mean corpuscular volume 90 [ foz_us] 80-99 Automated erythrocyte mean corpuscular h emoglobin (mass per erythrocyte) 28 pg 25-34 Automated erythrocyte mean corpuscular h emoglobin concentration measurement (mass/volume) 32 g/dL 32-36 Automated erythrocyte distribution width ratio 13. 7 % 10.0- 14.5 Automated blood platelet count (count/volume) 251 10*3/uL 130-400 Automated blood platelet mean volume measurement 10.3 [foz_us] 7.4-10.4 Automated blood neutrophils/100 leukocytes 44 % 42-75 Automated blood lymphocytes/100 leukocytes 36 % 12-44 Blood monocytes/100 leukocytes 13 % 0-12 Automated blood eosinophils/100 leukocytes 6 % 0-10 Automated blood basophils/100 leukocytes 1 % 0-10 Blood neutrophils automated count (number/volume) 2.3 10*3 1.8-7.8 Blood lymphocytes automated count (number/volume) 1.9 10*3 1.0-4.0 Blood monocytes automated count (number/volume) 0. 7 10*3 0.0-1.0 Automated eosinophil count 0.3 10*3/uL 0 .0-0.3 Automated blood basophil count (count/volume) 0.0 10*3/uL 0.0-0.1 Comprehensive metabolic panel - 02/23/19 03:56 Serum or plasma sodium measurement (moles/volume) 138 mmol/L 135-145 Serum or plasma potassium measurement (moles/volume) 3.2 mmol/L 3.6-5.0 Serum or plasma chloride measurement (moles/volume) 102 mmol/L 98-107 Carbon dioxide 23 mmol/L 21-32 Serum or plasma anion gap determination (moles/volume) 13 mmol/L 5-14 Serum or plasma urea nitrogen measurement (mass/volume ) 14 mg/dL 7-18 Serum or plasma creatinine measurement (mass/volume) 0.81 mg/dL 0.60-1.30 Serum or plasma urea nitrogen/creatinine mass ratio 17 NRG Serum or plasma creatinine measurement w ith calculation of estimated glomerular filtration rate > NRG Serum or plasma glucose measurement (mass/volume) 89 mg/dL 70-105 Serum or plasma calcium measurement (mass/volume) 8.3 mg/dL 8.5-10.1 Serum or plasma total bilirubin measurement (mass/volu me) 0.5 mg/dL 0.1-1.0 Serum or plasma alkaline phosphatase maggie surement (enzymatic activity/volume) 79 U/L 40-136 Serum or plasma aspartate aminotransfera se measurement (enzymatic activity/volume) 20 U/L 5-34 Serum or plasma alanine aminotransferase measurement (enzymatic activity/volume) 15 U/L 0-55 Serum or plasma protein measurement (mass/volume) 5.4 g/dL 6.4-8.2 Serum or plasma albumin measurement (mass/volume) 3.3 g/dL 3.2-4.5 CALCIUM CORRECTED 8.9 mg/dL 8.5-10.1 Pathologist review of blood test by mily henao - 02/24/19 03:52 Blood leukocytes automated count (number/volume) 5.9 10*3/uL 4.3-11.0 Blood erythrocytes automated count (number/volume) 3.39 10*6/uL 4.35-5.85 Venous blood hemoglobin measurement (mass/volume) 9.7 g/dL 11.5-16.0 Blood hematocrit (volume fraction) 30 % 35-52 Automated erythrocyte mean corpuscular volume 89 [ foz_us] 80-99 Automated erythrocyte mean corpuscular h emoglobin (mass per erythrocyte) 29 pg 25-34 Automated erythrocyte mean corpuscular h emoglobin concentration measurement (mass/volume) 32 g/dL 32-36 Automated erythrocyte distribution width ratio 13. 8 % 10.0- 14.5 Automated blood platelet count (count/volume) 287 10*3/uL 130-400 Automated blood platelet mean volume measurement 10.9 [foz_us] 7.4-10.4 Automated blood neutrophils/100 leukocytes 57 % 42-75 Automated blood lymphocytes/100 leukocytes 27 % 12-44 Blood monocytes/100 leukocytes 9 % NRG Automated blood eosinophils/100 leukocytes 4 % 0-10 Automated blood basophils/100 leukocytes 0 % 0-10 Blood neutrophils automated count (number/volume) 3.3 10*3 1.8-7.8 Blood lymphocytes automated count (number/volume) 1.6 10*3 1.0-4.0 Blood monocytes automated count (number/volume) 0. 7 10*3 0.0-1.0 Automated eosinophil count 0.2 10*3/uL 0 .0-0.3 Automated blood basophil count (count/volume) 0.0 10*3/uL 0.0-0.1 Manual blood segmented neutrophils/100 leukocytes 57 % NRG Manual blood lymphocytes/100 leukocytes 28 % NRG Manual eosinophils/100 leukocytes in nose 6 % NRG Blood reticulocytes count (number/volume) 46 10*9/ L 24-90 Blood reticulocytes/100 erythrocytes 1.35 % 0.50-2.40 Whole blood basic metabolic panel - 02/02 06/20 03:52 Serum or plasma sodium measurement (moles/volume) 139 mmol/L 135-145 Serum or plasma potassium measurement (moles/volume) 3.7 mmol/L 3.6-5.0 Serum or plasma chloride measurement (moles/volume) 106 mmol/L 98-107 Carbon dioxide 21 mmol/L 21-32 Serum or plasma anion gap determination (moles/volume) 12 mmol/L 5-14 Serum or plasma urea nitrogen measurement (mass/volume ) 10 mg/dL 7-18 Serum or plasma creatinine measurement (mass/volume) 0.70 mg/dL 0.60-1.30 Serum or plasma urea nitrogen/creatinine mass ratio 14 NRG Serum or plasma creatinine measurement w ith calculation of estimated glomerular filtration rate > NRG Serum or plasma glucose measurement (mass/volume) 86 mg/dL 70-105 Serum or plasma calcium measurement (mass/volume) 8.5 mg/dL 8.5-10.1 Serum iron and total iron binding capaci ty panel - 02/24/19 03:52 TIBC 227 % 280-380 UIBC 203 % 55-450 Serum or plasma iron measurement (mass/volume) 24 % 35-180 Total iron binding capacity and transferrin saturation measurement 11 % 15-50 Serum or plasma ferritin measurement (mass/volume) 49.6 % 20.0-177.0 LIPID PANEL - 03/31/19 16:09 CHOLESTEROL, TOTAL 179 mg/dL <200 HDL CHOLESTEROL 53 mg/dL >50 TRIGLYCERIDES 126 mg/dL <150 LDL-CHOLESTEROL 103 mg/dL (calc) NRG CHOL/HDLC RATIO 3.4 (calc) <5.0 NON HDL CHOLESTEROL 126 mg/dL (calc) <13 0 CMP - 03/31/19 16:09 GLUCOSE 110 mg/dL 65-99 UREA NITROGEN (BUN) 74 mg/dL 7-25 CREATININE 1.50 mg/dL 0.60-0.93 eGFR NON-AFR. CYMRAES 33 mL/min/1.73m2 > OR = 60 eGFR 38 mL/min/1.73m2 > OR = 60 BUN/CREATININE RATIO 49 (calc) 6-22 SODIUM 136 mmol/L 135-146 POTASSIUM 3.7 mmol/L 3.5-5.3 CHLORIDE 97 mmol/L 98-110 CARBON DIOXIDE 26 mmol/L 20-32 CALCIUM 9.5 mg/dL 8.6-10.4 PROTEIN, TOTAL 6.4 g/dL 6.1-8.1 ALBUMIN 4.0 g/dL 3.6-5.1 GLOBULIN 2.4 g/dL (calc) 1.9-3.7 ALBUMIN/GLOBULIN RATIO 1.7 (calc) 1.0-2. 5 BILIRUBIN, TOTAL 1.0 mg/dL 0.2-1.2 ALKALINE PHOSPHATASE 142 U/L 33-130 AST 21 U/L 10-35 ALT 13 U/L 6-29 CBC - 03/31/19 16:09 WHITE BLOOD CELL COUNT 6.9 Thousand/uL 3 .8-10.8 RED BLOOD CELL COUNT 3.40 Million/uL 3.8 0-5.10 HEMOGLOBIN 9.7 g/dL 11.7-15.5 HEMATOCRIT 29.0 % 35.0-45.0 MCV 85.3 fL 80.0-100.0 MCH 28.5 pg 27.0-33.0 MCHC 33.4 g/dL 32.0-36.0 RDW 13.7 % 11.0-15.0 PLATELET COUNT 282 Thousand/uL 140-400 MPV 10.6 fL 7.5-12.5 ABSOLUTE NEUTROPHILS 4844 cells/uL 1500- 7800 ABSOLUTE LYMPHOCYTES 1283 cells/uL 850-3 900 ABSOLUTE MONOCYTES 524 cells/uL 200-950 ABSOLUTE EOSINOPHILS 221 cells/uL 15-500 ABSOLUTE BASOPHILS 28 cells/uL 0-200 NEUTROPHILS 70.2 % NRG LYMPHOCYTES 18.6 % NRG MONOCYTES 7.6 % NRG EOSINOPHILS 3.2 % NRG BASOPHILS 0.4 % NRG VITAMIN B12 - 03/31/19 16:11 VITAMIN B12 >2000 pg/mL 200-1100 BMP - 04/20/19 15:40 GLUCOSE 97 mg/dL 65-99 UREA NITROGEN (BUN) 31 mg/dL 7-25 CREATININE 0.91 mg/dL 0.60-0.93 eGFR NON-AFR. CYMRAES 60 mL/min/1.73m2 > OR = 60 eGFR 70 mL/min/1.73m2 > OR = 60 BUN/CREATININE RATIO 34 (calc) 6-22 SODIUM 138 mmol/L 135-146 POTASSIUM 3.4 mmol/L 3.5-5.3 CHLORIDE 99 mmol/L 98-110 CARBON DIOXIDE 27 mmol/L 20-32 CALCIUM 8.9 mg/dL 8.6-10.4 Encounters ACCT No. Visit Date/Time Discharge Status Pt. Type Provider Facility Loc./Unit Complaint [id number] 03/31/2019 14:00:00 03/31/2019 23:59: 59 [facility] Out[facility] [id number] 04/20/2019 14:45:00 Document Registration [id number] 03/31/2019 14:00:00 Document Registration [id number] 11/07/2018 10:30:00 Document Registration [id number] 05/05/2018 12:00:00 Document Registration [id number] 02/21/2019 19:13:00 019 13:00:00 DIS Inpatient CURT SANCHEZ, COLLEEN Hoskins [facility] CSD CHEST PAIN [id number] 02/20/2019 19:50:00 019 14:19:00 DIS Inpatient ALVARO BURK DO [facility] ICU HF EXACERBATION DYSPNEA
[2019-08-15 05:28] LABS: HEMOGLOBIN 10.3 G/DL (11.5-16.0); MEAN CORPUSCULAR HEMOGLOBIN 27 PG (25-34); WHITE BLOOD COUNT 7.2 10^3/uL (4.3-11.0)
[2019-08-15 05:29] LABS: BASOPHILS # (AUTO) 0.1 10^3/uL (0.0-0.1); BASOPHILS % (AUTO) 1 % (0-10); EOSINOPHILS # (AUTO) 0.3 10^3/uL (0.0-0.3); EOSINOPHILS % (AUTO) 5 % (0-10); HEMATOCRIT 32 % (35-52); LYMPHOCYTES # (AUTO) 2.6 X 10^3 (1.0-4.0); LYMPHOCYTES % (AUTO) 36 % (12-44); MEAN CORPUSCULAR HGB CONC 32 G/DL (32-36); MEAN CORPUSCULAR VOLUME 84 FL (80-99); MEAN PLATELET VOLUME 10.8 FL (7.4-10.4); MONOCYTES # (AUTO) 0.8 X 10^3 (0.0-1.0); MONOCYTES % (AUTO) 11 % (0-12); NEUTROPHILS # (AUTO) 3.4 X 10^3 (1.8-7.8); NEUTROPHILS % (AUTO) 48 % (42-75); PLATELET COUNT 230 10^3/uL (130-400); RED CELL DISTRIBUTION WIDTH 17.2 % (10.0-14.5)
--- NOTE | 2019-08-15 05:40 | ED Chest Pain ---
General Chief Complaint: Chest Pain Stated Complaint: CHEST PAIN Source: patient Exam Limitations: no limitations History of Present Illness Date Seen by Provider: Aug 15, 2019 Time Seen by Provider: 05:20 Initial Comments Onset of CP that started this morning after a spell of coughing, c/o chest tightness, cough and wheezing. Hx of CHF and chronic lower leg swelling. On an antibiotic and water pills for infection of both legs recently from her PCP. No recent illness. Allergies and Home Medications Allergies Coded Allergies: No Known Drug Allergies (Unverified , 02/20/19) Home Medications Albuterol Sulfate 1 Puff Puff, 2 PUFF IH Q4H 1 PUFF = 90 MCG Prescribed by: ALBERT THOMAS on 08/15/19 0559 Aspirin 81 Mg Tablet.dr, 81 MG PO DAILY Prescribed by: STEPHEN GUZMAN on 02/24/19 1250 Atorvastatin Calcium 40 Mg Tablet, 40 MG PO DAILY Prescribed by: COLLEEN ELIAS on 02/24/19 1133 Azithromycin 250 Mg Tablet, 250 MG PO HS Prescribed by: COLLEEN ELIAS on 02/24/19 1133 Carvedilol 25 Mg Tab, 25 MG PO BID, (Reported) Clopidogrel Bisulfate 75 Mg Tablet, 75 MG PO DAILY Prescribed by: COLLEEN ELIAS on 02/24/19 1133 Diclofenac Sodium 100 Gm Gel..gram., 2 GM TD QID PRN for ARTHRITIS PAIN, (Reported) Fish Oil/Dha/Epa 1 Each Capsule, 1 EACH PO DAILY, (Reported) Furosemide 40 Mg Tablet, 40 MG PO DAILY PRN for FLUID RETENTION, (Reported) Hydrocodone Bit/Acetaminophen 1 Each Tablet, 1 TAB PO TID PRN for PAIN-MODERATE (5-7), (Reported) Losartan Potassium 100 Mg Tablet, 100 MG PO DAILY, (Reported) Multivitamin 1 Each Tablet, 1 EACH PO DAILY, (Reported) Nitroglycerin 0.4 Mg Tab.subl, 0.4 MG SL UD PRN for CHEST PAIN, (Reported) Potassium Chloride 10 Meq Capsule.er, 10 MEQ PO DAILY PRN for FLUID RETENTION, ( Reported) Prednisone 20 Mg Tab, 40 MG PO DAILY Prescribed by: ALBERT THOMAS on 08/15/19 0559 Patient Home Medication List Home Medication List Reviewed: Yes Review of Systems Review of Systems Constitutional: see HPI; No dizziness, No fever; malaise; No weakness EENTM: No Symptoms Reported Respiratory: Cough, Shortness of Air, Wheezing Cardiovascular: Chest Pain, Edema; Denies Irregular Heart Rate, Denies Palpitations, Denies Syncope Gastrointestinal: Denies Abdominal Pain, Denies Constipated, Denies Diarrhea, Denies Vomiting Musculoskeletal: no symptoms reported Skin: No change in color, No lesions, No rash Psychiatric/Neurological: Denies Numbness, Denies Paresthesia, Denies Seizure Past Opclsan-Ieapec-Yzlpjd Hx Past Med/Social Hx: Reviewed Nursing Past Med/Soc Hx Patient Social History Alcohol Use: Denies Use Recreational Drug Use: No Smoking Status: Never a Smoker 2nd Hand Smoke Exposure: No Recent Foreign Travel: No Contact w/Someone Who Travel: No Recent Hopitalizations: No Physical Abuse: No Sexual Abuse: No Mistreated: No Fear: No Immunizations Up To Date Date of Pneumonia Vaccine: Feb 21, 2016 Date of Influenza Vaccine: Dec 22, 2018 Seasonal Allergies Seasonal Allergies: No Past Medical History Surgeries: Yes (S/P colon resection; H/O L wrist deformity congenital, L carotid endarterec) CABG, Coronary Stent, Orthopedic Respiratory: No Cardiac: Yes Chronic Edema/Swelling, Coronary Artery Disease, High Cholesterol, Hypertension Neurological: No Genitourinary: Yes (CKD Stage 3) Renal Failure Gastrointestinal Bleed Musculoskeletal: Yes ( 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 oz. kg; 25.14 BMI Method: General Appearance: No Apparent Distress, Chronically ill HEENT: Normal ENT Inspection Neck: Non Tender, Supple Respiratory: No Accessory Muscle Use, No Respiratory Distress, Rales, Rhonci, Wheezing Cardiovascular: Regular Rate, Rhythm, Other (chronic LE edema) Gastrointestinal: No Organomegaly, Non Tender, Soft Extremity: Pedal Edema (and leg edema -b/l) Neurologic/Psychiatric: Alert, Oriented x3, No Motor/Sensory Deficits, Normal Mood/Affect Skin: Normal Color, Warm/Dry, Erythema (b/l lowe legs) Progress/Results/Core Measures Results/Orders Lab Results Laboratory Tests Test 08/15/19 05:20 Range/Units White Blood Count 7.2 4.3-11.0 10^3/uL Red Blood Count 3.88 L 4.35-5.85 10^6/uL Hemoglobin 10.3 L 11.5-16.0 G/DL Hematocrit 32 L 35-52 % Mean Corpuscular Volume 84 80-99 FL Mean Corpuscular Hemoglobin 27 25-34 PG Mean Corpuscular Hemoglobin Concent 32 32-36 G/DL Red Cell Distribution Width 17.2 H 10.0-14.5 % Platelet Count 230 130-400 10^3/uL Mean Platelet Volume 10.8 H 7.4-10.4 FL Neutrophils (%) (Auto) 48 42-75 % Lymphocytes (%) (Auto) 36 12-44 % Monocytes (%) (Auto) 11 0-12 % Eosinophils (%) (Auto) 5 0-10 % Basophils (%) (Auto) 1 0-10 % Neutrophils # (Auto) 3.4 1.8-7.8 X 10^3 Lymphocytes # (Auto) 2.6 1.0-4.0 X 10^3 Monocytes # (Auto) 0.8 0.0-1.0 X 10^3 Eosinophils # (Auto) 0.3 0.0-0.3 10^3/uL Basophils # (Auto) 0.1 0.0-0.1 10^3/uL Sodium Level 138 135-145 MMOL/L Potassium Level 3.8 3.6-5.0 MMOL/L Chloride Level 95 L 98-107 MMOL/L Carbon Dioxide Level 28 21-32 MMOL/L Anion Gap 15 H 5-14 MMOL/L Blood Urea Nitrogen 40 H 7-18 MG/DL Creatinine 1.04 0.60-1.30 MG/DL Estimat Glomerular Filtration Rate 51 BUN/Creatinine Ratio 38 Glucose Level 102 70-105 MG/DL Calcium Level 9.5 8.5-10.1 MG/DL Corrected Calcium 9.5 8.5-10.1 MG/DL Total Bilirubin 0.9 0.1-1.0 MG/DL Aspartate Amino Transf (AST/SGOT) 21 5-34 U/L Alanine Aminotransferase (ALT/SGPT) 12 0-55 U/L Alkaline Phosphatase 67 40-136 U/L Troponin I < 0.30 <0.30 NG/ML Pro-B-Type Natriuretic Peptide 973.9 H <75.0 PG/ML Total Protein 6.6 6.4-8.2 GM/DL Albumin 4.0 3.2-4.5 GM/DL My Orders Orders - ROVENSTINE,ALBERT L DO Albuterol Pre-Mix Nebs (Rt) (Proventil (08/15/19 05:13) Troponin I Fs (08/15/19 05:22) Cbc With Automated Diff (08/15/19 05:22) Chest 1 View Ap/Pa Only (08/15/19 05:22) Ekg Tracing (08/15/19 05:22) Comprehensive Metabolic Panel (08/15/19 05:22) O2 (08/15/19 05:22) Monitor-Rhythm Ecg Trace Only (08/15/19 05:22) Ed Iv/Invasive Line Start (08/15/19 05:22) Probnp Fs (08/15/19 05:22) Cbc With Automated Diff (08/15/19 05:44) Medications Given in ED Vital Signs/I&O 08/15/19 08/15/19 05:30 06:07 Temp 36.9 Pulse 91 95 Resp 20 17 B/P (MAP) 164/80 (108) 151/80 Pulse Ox 96 97 O2 Delivery Room Air Room Air Progress Progress Note : Progress Note Much improved p albuterol neb. Breathing comfortably w intermittent coarse cough. Hx of similar cough in the past and has used inhalers in the past for cough. Initial ECG Impression Date: Aug 15, 2019 Initial ECG Impression Time: 05:20 Initial ECG Rate: 98 Initial ECG Rhythm: Normal Sinus Initial ECG Impression: Normal Initial ECG Comparisson: No Previous ECG Available Departure Impression Primary Impression: Bronchitis Disposition: 01 HOME, SELF-CARE Condition: Improved Departure-Patient Inst. Decision time for Depature: 05:58 Referrals: DONNA ROSE MD (PCP/Family) Primary Care Physician Patient Instructions: Acute Bronchitis Add. Discharge Instructions: See your PCP in a few days if not improving, return to the ER sooner if worse. All discharge instructions reviewed with patient and/or family. Voiced understanding. Scripts Prednisone (Prednisone) 20 Mg Tab 40 MG PO DAILY, #10 TAB 0 Refills Prov: ALBERT THOMAS DO 08/15/19 Albuterol Sulfate (PROAIR HFA) 1 Puff Puff 2 PUFF IH Q4H for Cough, #1 PUFF 1 Refill 1 PUFF = 90 MCG Prov: ALBERT THOMAS DO 08/15/19 ALBERT THOMAS DO Aug 15, 2019 05:40
[2019-08-15 05:47] LABS: POTASSIUM 3.8 MMOL/L (3.6-5.0)
[2019-08-15 05:48] LABS: BILIRUBIN,TOTAL 0.9 MG/DL (0.1-1.0); CALCIUM 9.5 MG/DL (8.5-10.1); CREATININE SERUM 1.04 MG/DL (0.60-1.30); TOTAL PROTEIN 6.6 GM/DL (6.4-8.2)
[2019-08-15] MEDS ORDERED: RT-ALBUINH IH (05:59)
[2019-08-15] MEDS ORDERED: PRD20T PO (05:59)
[2019-08-15 06:07] VITALS: BP 151/80
--- NOTE | 2019-08-15 07:49 | Diagnostic Imaging Report ---
EXAMINATION: Chest radiograph, portable AP view. DATE: 08/15/2019 5:42 AM hours. INDICATION: 79-year-old female, chest pain, shortness of breath. COMPARISON: February 23, 2019. FINDINGS: There are median sternotomy wires. Stable overall appearance of the cardiomediastinal silhouette. There are aortic calcifications. There are surgical clips at the level of the right neck. There is elevation of the left hemidiaphragm. There is no identified pneumothorax. Blunting of the left lateral costophrenic angle is unchanged since the comparison exam. There is no identified interval focal airspace consolidation. There are end-stage right glenohumeral arthritic changes. IMPRESSION: 1. No radiographically apparent interval acute cardiopulmonary abnormality. Dictated by: Dictated on workstation # [id number]
== END 2019-08-15 06:07 | disposition home or self-care (01) ==
LOC: EDUNIT# 05:02 → ER FS 05:08
DX: J40 Bronchitis, not specified as acute or chronic (principal); I13.0 Hypertensive heart and chronic kidney disease with heart failure and stage 1 through stage 4 chronic kidney disease, or unspecified chronic kidney disease; I50.9 Heart failure, unspecified; N18.3 Chronic kidney disease, stage 3 (moderate); E78.00 Pure hypercholesterolemia, unspecified; I25.10 Atherosclerotic heart disease of native coronary artery without angina pectoris; Z85.038 Personal history of other malignant neoplasm of large intestine; Z95.5 Presence of coronary angioplasty implant and graft; Z79.82 Long term (current) use of aspirin; Z95.1 Presence of aortocoronary bypass graft; Z79.02 Long term (current) use of antithrombotics/antiplatelets
CPT/HCPCS: 36415; 71045; 80053; 83880; 84484; 85025; 93005

== ENCOUNTER → 2019-10-26 | Outpatient (CLI) | payer MEDICARE ==
[~2019-10-26] MED LIST changes: +PRD20T PO; +RT-ALBUINH IH
== END ==
LOC: WOUNDCARE 13:20
PROVIDERS: ATTEND Surgery
DX: L03.115 Cellulitis of right lower limb (principal); L03.116 Cellulitis of left lower limb; I89.0 Lymphedema, not elsewhere classified; I50.84 End stage heart failure
CPT/HCPCS: 99213

== ENCOUNTER 2019-11-16 10:33 | Inpatient (IN) | payer MEDICARE ==
[~2019-11-16] VITALS: Ht 146 cm; Wt 50.8 kg
[~2019-11-16 10:33] MED LIST changes: +ASPI-1238 PO; -ASPI-983 PO
[2019-11-16] MEDS ORDERED: NITROGLYCERIN 0.4 MG SL TABS BTL 25'S SL PRN ×2 (11:00→14:00)
[2019-11-16] MEDS ORDERED: ASPIRIN 81 MG CHEW (CHILDREN'S ASA) PO ONE (11:00)
[2019-11-16] MEDS ORDERED: NS IV 1000 ML 1,000 ML IV SCH (11:00)
[2019-11-16 11:03] LABS: HEMATOCRIT 32 % (35-52); HEMOGLOBIN 10.1 G/DL (11.5-16.0); MEAN CORPUSCULAR HEMOGLOBIN 28 PG (25-34); MEAN CORPUSCULAR HGB CONC 32 G/DL (32-36); MEAN CORPUSCULAR VOLUME 88 FL (80-99); PLATELET COUNT 256 10^3/uL (130-400)
[2019-11-16 11:04] LABS: BASOPHILS % (AUTO) 0 % (0-10); EOSINOPHILS # (AUTO) 0.2 10^3/uL (0.0-0.3); EOSINOPHILS % (AUTO) 2 % (0-10); LYMPHOCYTES # (AUTO) 1.2 X 10^3 (1.0-4.0); LYMPHOCYTES % (AUTO) 11 % (12-44); MONOCYTES # (AUTO) 0.8 X 10^3 (0.0-1.0); MONOCYTES % (AUTO) 7 % (0-12); NEUTROPHILS # (AUTO) 8.8 X 10^3 (1.8-7.8); NEUTROPHILS % (AUTO) 80 % (42-75)
--- NOTE | 2019-11-16 11:15 | Diagnostic Imaging Report ---
INDICATION: Chest pain. TIME OF EXAM: 10:58 a.m. COMPARISON: Correlation is made with prior chest from 08/15/2019. FINDINGS: Changes of median sternotomy are noted. There is some consolidation in the left base and probable left effusion. Right lung is clear. Pulmonary vascularity is normal. There is no pneumothorax. IMPRESSION: Findings suggestive of left basilar consolidation and pleural fluid. Dictated by: Dictated on workstation # [id number]
[2019-11-16 11:41] LABS: BUN/CREATININE RATIO 28; CARBON DIOXIDE 27 MMOL/L (21-32); CHLORIDE 100 MMOL/L (98-107); CREATININE SERUM 1.27 MG/DL (0.60-1.30); GFR ESTIMATED 41; GLUCOSE 123 MG/DL (70-105); POTASSIUM 3.6 MMOL/L (3.6-5.0); SODIUM 139 MMOL/L (135-145)
--- NOTE | 2019-11-16 11:41 | ED Chest Pain ---
General Chief Complaint: Chest Pain Stated Complaint: CHEST/ABD PAIN Nursing Triage Note: Patient presents to the ED with c/o of chest pain radiating into upper to mid abdomen. She states the pain has been occuring for intermittently for the past week. She report the pain as a severe pressure/tightness and when it occurs it takes her breath away. Nursing Sepsis Screen: No Definite Risk Exam Limitations: no limitations History of Present Illness Date Seen by Provider: Nov 16, 2019 Time Seen by Provider: 10:45 Initial Comments Patient is a 79-year-old female with history of CAD who presents with chest pain radiating to her mid and upper abdomen this morning during breakfast and with light exertion. Patient states symptoms are similar to baseline angina but this morning it episode was more severe and was longer in duration lasted approximately 40 minutes. Patient is associated symptoms include shortness of breath and fatigue. Denies palpitations, nausea vomiting and sweats. No flank pain, no urinary frequency urgency or dysuria. Reports chronic leg swelling unchanged from normal. No other acute symptoms or complaints Timing/Duration: 1-3 hours Severity/Quality: moderate Location: central, abdomen Radiation: epigastric Activities at Onset: other Prior CP/Workup: angina, heart attack Modifying Factors: improves with rest ASA po [employer]IONAL SALES TRAINER: No NTG SL REGIONAL SALES TRAINER: No Associated Symptoms: abdominal pain, weakness Allergies and Home Medications Allergies Coded Allergies: No Known Drug Allergies (Unverified , 02/20/19) Home Medications Albuterol Sulfate 1 Puff Puff, 2 PUFF IH Q4H 1 PUFF = 90 MCG Prescribed by: ALBERT THOMAS on 08/15/19 0559 Aspirin 81 Mg Tablet.dr, 81 MG PO DAILY Prescribed by: STEPHEN GUZMAN on 02/24/19 1250 Atorvastatin Calcium 40 Mg Tablet, 40 MG PO DAILY Prescribed by: COLLEEN ELIAS on 02/24/19 1133 Azithromycin 250 Mg Tablet, 250 MG PO HS Prescribed by: COLLEEN ELIAS on 02/24/19 1133 Carvedilol 25 Mg Tab, 25 MG PO BID, (Reported) Clopidogrel Bisulfate 75 Mg Tablet, 75 MG PO DAILY Prescribed by: COLLEEN ELIAS on 02/24/19 1133 Diclofenac Sodium 100 Gm Gel..gram., 2 GM TD QID PRN for ARTHRITIS PAIN, (Reported) Fish Oil/Dha/Epa 1 Each Capsule, 1 EACH PO DAILY, (Reported) Furosemide 40 Mg Tablet, 40 MG PO DAILY PRN for FLUID RETENTION, (Reported) Hydrocodone Bit/Acetaminophen 1 Each Tablet, 1 TAB PO TID PRN for PAIN-MODERATE (5-7), (Reported) Losartan Potassium 100 Mg Tablet, 100 MG PO DAILY, (Reported) Multivitamin 1 Each Tablet, 1 EACH PO DAILY, (Reported) Nitroglycerin 0.4 Mg Tab.subl, 0.4 MG SL UD PRN for CHEST PAIN, (Reported) Potassium Chloride 10 Meq Capsule.er, 10 MEQ PO DAILY PRN for FLUID RETENTION, (Reported) Prednisone 20 Mg Tab, 40 MG PO DAILY Prescribed by: ALBERT THOMAS on 08/15/19 0559 Patient Home Medication List Home Medication List Reviewed: Yes Review of Systems Review of Systems Constitutional: see HPI EENTM: See HPI Respiratory: See HPI Cardiovascular: See HPI Gastrointestinal: See HPI Genitourinary: See HPI Musculoskeletal: see HPI Skin: see HPI Psychiatric/Neurological: See HPI Endocrine: See HPI Hematologic/Lymphatic: See HPI All Other Systems Reviewed Negative Unless Noted: Yes Past Idkyqmr-Zjybmu-Fkvreb Hx Patient Social History Alcohol Use: Denies Use Recreational Drug Use: No Smoking Status: Never a Smoker 2nd Hand Smoke Exposure: No Recent Foreign Travel: No Contact w/Someone Who Travel: No Recent Infectious Disease Expo: No Recent Hopitalizations: No Physical Abuse: No Sexual Abuse: No Mistreated: No Fear: No Immunizations Up To Date Date of Pneumonia Vaccine: Feb 21, 2016 Date of Influenza Vaccine: Dec 22, 2018 Seasonal Allergies Seasonal Allergies: No Past Medical History Surgeries: Yes (S/P colon resection; H/O L wrist deformity congenital, L carotid endarterec) CABG, Coronary Stent, Orthopedic Respiratory: No Cardiac: Yes Chronic Edema/Swelling, Coronary Artery Disease, High Cholesterol, Hypertension Neurological: No Genitourinary: Yes (CKD Stage 3) Renal Failure Gastrointestinal Bleed Musculoskeletal: Yes ( 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 oz. kg; 24.00 BMI Method: General Appearance: No Apparent Distress, WD/WN, Anxious HEENT: PERRL/EOMI, Normal ENT Inspection, Pharynx Normal Neck: Full Range of Motion, Non Tender, Supple Respiratory: Lungs Clear, Other (breath sounds diminished at bases.) Gastrointestinal: Non Tender, Soft Extremity: Swelling Neurologic/Psychiatric: Alert Skin: Rash (midankle and lower) Focused Exam Sepsis Stage: Ruled Out Progress/Results/Core Measures Results/Orders Lab Results Laboratory Tests Test 11/16/19 10:40 Range/Units White Blood Count 11.0 4.3-11.0 10^3/uL Red Blood Count 3.62 L 4.35-5.85 10^6/uL Hemoglobin 10.1 L 11.5-16.0 G/DL Hematocrit 32 L 35-52 % Mean Corpuscular Volume 88 80-99 FL Mean Corpuscular Hemoglobin 28 25-34 PG Mean Corpuscular Hemoglobin Concent 32 32-36 G/DL Red Cell Distribution Width 15.1 H 10.0-14.5 % Platelet Count 256 130-400 10^3/uL Mean Platelet Volume 11.0 H 7.4-10.4 FL Neutrophils (%) (Auto) 80 H 42-75 % Lymphocytes (%) (Auto) 11 L 12-44 % Monocytes (%) (Auto) 7 0-12 % Eosinophils (%) (Auto) 2 0-10 % Basophils (%) (Auto) 0 0-10 % Neutrophils # (Auto) 8.8 H 1.8-7.8 X 10^3 Lymphocytes # (Auto) 1.2 1.0-4.0 X 10^3 Monocytes # (Auto) 0.8 0.0-1.0 X 10^3 Eosinophils # (Auto) 0.2 0.0-0.3 10^3/uL Basophils # (Auto) 0.0 0.0-0.1 10^3/uL Sodium Level 139 135-145 MMOL/L Potassium Level 3.6 3.6-5.0 MMOL/L Chloride Level 100 98-107 MMOL/L Carbon Dioxide Level 27 21-32 MMOL/L Anion Gap 12 5-14 MMOL/L Blood Urea Nitrogen 36 H 7-18 MG/DL Creatinine 1.27 0.60-1.30 MG/DL Estimat Glomerular Filtration Rate 41 BUN/Creatinine Ratio 28 Glucose Level 123 H 70-105 MG/DL Calcium Level 9.1 8.5-10.1 MG/DL Corrected Calcium 9.4 8.5-10.1 MG/DL Total Bilirubin 1.6 H 0.1-1.0 MG/DL Aspartate Amino Transf (AST/SGOT) 15 5-34 U/L Alanine Aminotransferase (ALT/SGPT) 8 0-55 U/L Alkaline Phosphatase 62 40-136 U/L Troponin I < 0.30 <0.30 NG/ML Total Protein 6.4 6.4-8.2 GM/DL Albumin 3.6 3.2-4.5 GM/DL Lipase 25 8-78 U/L My Orders Orders - CHEO MITCHELL DO Cbc With Automated Diff (11/16/19 10:54) Comprehensive Metabolic Panel (11/16/19 10:54) Troponin I Fs (11/16/19 10:54) Chest 1 View Ap/Pa Only (11/16/19 10:54) Ns Iv 1000 Ml (Sodium Chloride 0.9%) (11/16/19 11:00) Aspirin Chewable Tablet (Baby Aspirin Ch (11/16/19 11:00) Nitroglycerin 0.4 Mg Btl 25's (Nitrostat (11/16/19 11:00) Lipase (11/16/19 10:55) Ekg Tracing (11/16/19 11:32) Probnp Fs (11/16/19 11:56) Medications Given in ED Current Medications Medications Dose Ordered Sig/Emi Route Start Time Stop Time Status Last Admin Dose Admin Aspirin 324 mg ONCE ONCE PO 11/16/19 11:00 11/16/19 11:01 DC 11/16/19 11:00 324 MG Nitroglycerin 1 TAB Q 5 MIN X 3 NEEDED PRN SL 11/16/19 11:00 11/16/19 11:01 0.4 MG Vital Signs/I&O 11/16/19 11/16/19 10:35 10:35 Temp 36.9 Pulse 93 Resp 17 B/P (MAP) 101/46 (64) Pulse Ox 94 O2 Delivery Room Air Room Air Blood Pressure Mean: 64 Departure Communication (Admissions) Chest x-ray: Left lower pleural effusion. EKG: Normal sinus rhythm, no acute ST-T wave changes. Patient symptom free on ED arrival. Vital signs stable. Troponin, EKG nonacute. Dr. Elias accepts to [facility]. Impression Primary Impression: Acute coronary syndrome Disposition: XFER SHT-TRM HOSP Condition: Stable Admissions Decision to Admit Reason: Admit from ER (General) Decision to Admit/Date: Nov 16, 2019 Time/Decision to Admit Time: 12:00 (DR. ELIAS) Departure-Patient Inst. Referrals: DONNA ROSE MD (PCP/Family) Primary Care Physician Patient Instructions: Chest Pain (DC) CHEO MITCHELL DO Nov 16, 2019 11:41
[2019-11-16 11:42] LABS: ALANINE AMINOTRANSFERASE 8 U/L (0-55); ALBUMIN 3.6 GM/DL (3.2-4.5); ALKALINE PHOSPHATASE 62 U/L (40-136); BILIRUBIN,TOTAL 1.6 MG/DL (0.1-1.0); CALCIUM 9.1 MG/DL (8.5-10.1); LIPASE 25 U/L (8-78); TOTAL PROTEIN 6.4 GM/DL (6.4-8.2)
[2019-11-16] MEDS ORDERED: FUROSEMIDE 40 MG/4 ML INJ (LASIX) IVP ONE ×2 (13:00→16:30)
[2019-11-16 13:30] VITALS: BP 115/72
--- NOTE | 2019-11-16 13:30 | NUR ---
SHAWNAGABBYGARY Santiago admitted to room 511-1, with an admitting diagnosis of CP, on 11/16/19 from ER via [facility], accompanied by STAFF.GARY MATOS introduced to surroundings, call light, bed controls, phone, TV, temperature control, lights, meal times, smoking policy, visitor policy, side rail policy, bathrooms and showers. Patient Rights given to patient in the handbook. GARY MATOS verbalizes understanding that [facility] is not responsible for the loss or damage to any personal effects or valuables that are kept in the patients posession during their hospitalization. The following Patient Care Plans were discussed with the PT: Discharge Planning, IMPAIRED GAS EXCHANGE,INEFFECTICE BREATHING PATTERN, and ACTIVITY INTOLERANCE. GARY MATOS verbalizes understanding of Interdisciplinary Patient Education. Patient and family were informed about the Rapid Response Team and its purpose.
--- NOTE | 2019-11-16 14:03 | History & Physical ---
ABDIRASHID LEGGETT,MED STUDENT 11/16/19 1403: HPI History of Present Illness: Patient is a 79yo female who presented to [facility] today complaining of chest pain and tightness, and pain in her upper abdomen. She states this started this morning. She tried taking nitroglycerin but it worked for only a few seconds. This episode lasted about 40 minutes. She has a history of CAD and reports multiple open heart surgeries. She also states she was feeling short of breath during the episode. She has bilateral LE edema and cellulitis, and states she has been seeing wound care for this and is on an antibiotic. Source: patient Exam Limitations: no limitations Date seen by provider: Nov 16, 2019 Time Seen by Provider: 13:45 Attending Physician Andre Cook MD PCP Jarad Herrera MD Consult Date of Admission Nov 16, 2019 at 13:49 Home Medications Home Medications Reviewed patient Home Medication Reconciliation performed by pharmacy medication reconciliations human service technician and/or nursing. Patients Allergies have been reviewed. Allergies Coded Allergies: No Known Drug Allergies (Unverified , 02/20/19) BGL-Aceezg-Ldinur Hx Patient Social History Alcohol Use: Denies Use Recreational Drug Use: No Smoking Status: Never a Smoker 2nd Hand Smoke Exposure: No Recent Foreign Travel: No Contact w/other who traveled: No Recent Hopitalizations: No Recent Infectious Disease Expo: No Immunizations Up To Date Date of Pneumonia Vaccine: Feb 21, 2016 Date of Influenza Vaccine: Dec 22, 2018 Past Medical History Past Medical: -CAD -Hypercholesterolemia -Hypertension -Osteoarthritis -Colon cancer -CKD -Congenital LUE deformation Past Surgical History: -Cholecystectomy -CABG -Coronary stents -Colon resection -L carotid endarterectomy Family Medical History Significant Family History: Heart Disease Review of Systems ([facility]) Constitutional: No chills, No diaphoresis, No fever, No weakness EENTM: No vision loss, No nose congestion Respiratory: No cough; dyspnea on exertion; No short of breath Cardiovascular: No chest pain; edema (bilateral LE), Hx of Intervention, vascular heart diseas Gastrointestinal: No abdominal pain, No constipation, No diarrhea, No nausea, No vomiting Genitourinary: No dysuria, No frequency Musculoskeletal: joint pain (chronic) Skin: rash (bilateral LE) Psychiatric/Neurological: Denies Numbness, Denies Paresthesia, Denies Weakness Physical Exam-([facility]) Physical Exam Vital Signs VS - Last 72 Hours, by Label 11/16/19 11/16/19 11/16/19 10:35 10:35 12:42 Temp 36.9 36.9 Pulse 93 80 Resp 17 16 B/P (MAP) 101/46 (64) 90/48 (64) Pulse Ox 94 95 O2 Delivery Room Air Room Air Room Air Capillary Refill : Less Than 3 Seconds General Appearance: no apparent distress HEENT: PERRL/EOMI Respiratory: lungs clear, no respiratory distress, no accessory muscle use, decreased breath sounds (bases bilaterally) Cardiovascular: regular rate, rhythm, no murmur Peripheral Pulses: 2+ Dorsalis Pedis (R), 2+ Left Dors-Pedis (L), 2+ Radial Pulses (R), 2+ Radial Pulses (L) Gastrointestinal: normal bowel sounds, non tender, soft Extremities: normal capillary refill; No calf tenderness; pedal edema, swelling (bilateral LE), other (congenital LUE deformity) Neurologic/Psychiatric: no motor/sensory deficits, alert, normal mood/affect Skin: normal color, warm/dry, rash (bilateral LE redness) Assessment/Plan Assessment/Plan Assessment & Plan Angina- will trend troponins and consult cardiology. Troponin in the ED this morning was <0.3. Patient not currently having chest pain. Chest Xray showed possible left basilar consolidation and pleural fluid Lower extremity cellulitis- Will consider lasix due to significant LE swelling and elevated BNP. DVT prophylaxis- SCDs and enoxaparin Clinical Quality Measures AMI/AHF: ASA po Prior to arrival: No COLLEEN ELIAS MD 11/16/19 1634: Home Medications Allergies Coded Allergies: No Known Drug Allergies (Unverified , 02/20/19) Physical Exam-([facility]) Physical Exam General Appearance: WD/WN, no apparent distress Respiratory: lungs clear, no respiratory distress, no accessory muscle use, decreased breath sounds (bases bilaterally) Cardiovascular: regular rate, rhythm, no murmur Peripheral Pulses: 1+ Dorsalis Pedis (R), 1+ Left Dors-Pedis (L) Gastrointestinal: normal bowel sounds, non tender, soft Extremities: pedal edema, swelling (bilateral LE) Neurologic/Psychiatric: alert, normal mood/affect Skin: warm/dry, other (erythema to both legs from ankle to mid-calf) Assessment/Plan Assessment/Plan Admission Status: Observation (1) Unstable angina Status: Acute Assessment & Plan: Cardiology consulted, appreciate recommendations. (2) Lower extremity edema Status: Chronic Assessment & Plan: With superimposed erythema, review of records reveals wound care prescribed doxycycine x 14 days starting on 10/25, so this should be complete, and patien reports improvement in redness. (3) Hypertension Status: Chronic Assessment & Plan: BP low normal to low on admit, hold carvedilol and losartan and monitor. Qualifiers: Qualified Codes: I10 - Essential (primary) hypertension (4) Diastolic dysfunction (5) Elevated brain natriuretic peptide (BNP) level Status: Acute Assessment & Plan: Increased from August which was higher than February. Given 20 mg IV lasix in ER, resume home lasix. No hypoxia. Cardiology consulted, appreciate recommendations. (6) Atherosclerotic occlusive disease Status: Chronic Assessment & Plan: Resume home plavix. (7) Coronary artery disease Status: Chronic (8) DVT prophylaxis Status: Acute Assessment & Plan: Enoxaparin Supervisory-Addendum Brief Verification & Attestation Participated in pt care: history, physical Personally performed: exam, history, MDM, supervision of care Care discussed with: Medical Student Procedures: n/a I personally saw and performed my own history and physical and agree with documentation of history by medical student. See my exam section and problem list for my assessment and plan. ABDIRASHID LEGGETT,MED STUDENT Nov 16, 2019 14:03 COLLEEN ELIAS MD Nov 16, 2019 16:34
[2019-11-16] MEDS ORDERED: ALPR0.254 PO (15:46)
[2019-11-16] MEDS ORDERED: CLOP75TA28 PO (15:46)
[2019-11-16] MEDS ORDERED: FAMO-119 PO (15:46)
[2019-11-16] MEDS ORDERED: REGADENOSON 0.4 MG/5 ML SYR (LEXISCAN) IV ONE (16:00)
--- NOTE | 2019-11-16 16:00 | NUR ---
LASIX 40MG NOT GIVEN IN [facility] ED (THIS RN CALLED AND CONFIRMED W/ SIERRA RN AT [facility]). THIS RN INFORMED DR QUEVEDO, NEW ORDERS RECEIVED TO GIVE 20MG IV LASIX.
--- NOTE | 2019-11-16 16:02 | NUR ---
I SPOKE WITH THE PATIENT, CALLED HER DOCTOR'S OFFICE, AND [facility] IN [place]. PATIENT STATES THAT SHE GETS POTASSIUM PRESCRIBED, BUT I COULDN'T FIND ANY RECENT RECORD OF IT AND PATIENT STATES THAT SHE DOESN'T TAKE IT OVER THE COUNTER. THE MOST RECENT FILL DATE I HAVE IS FROM [facility] PICKED UP 09/25/2018 #90 90DS. FOR THIS REASON I DID NOT PUT THIS ON THE MED REC. OTC: WILL
[2019-11-16] MEDS ORDERED: FUROSEMIDE 40 MG/4 ML INJ (LASIX) ONE (16:22)
[2019-11-16 16:29] VITALS: BP 117/68
[2019-11-16] MEDS ORDERED: ALPRAZolam 0.25 MG (XANAX) TAB PO PRN (16:30)
--- NOTE | 2019-11-16 16:34 | Consultation-Cardiology ---
HPI-Cardiology Cardiology Consultation Date of Consultation 11/16/19 Date of Admission Time Seen by Provider: 16:30 Indication: chest pain HPI 79-year-old lady with history of kyphosis, coronary artery disease, hypertension hyperlipidemia. Has been having chest pain with exertion, shortness of breath on exertion which has been worsening recently. She was hospitalized in February underwent cardiac catheterization with stent to the circumflex artery and balloon angioplasty to the LAD. Reported persistence of her symptoms. Continue to have recurrent chest pain with exertion responsive to nitroglycerin. Came in for severe chest pain the 5 nitroglycerin and came to the emergency room, currently chest pain-free. Concern about her situation. Currently no active chest pain Home Medications & Allergies Allergies: Coded Allergies: No Known Drug Allergies (Unverified , 02/20/19) Home Medication List Reviewed: Yes [id number] Hx Patient Social History Marital Status: Alcohol Use: Denies Use Recreational Drug Use: No Smoking Status: Never a Smoker 2nd Hand Smoke Exposure: No Recent Foreign Travel: No Recent Infectious Disease Expo: No Recent Hopitalizations: No Immunizations Up To Date Date of Pneumonia Vaccine: Feb 21, 2016 Date of Influenza Vaccine: Dec 22, 2018 Past Medical History Discussed below Family Medical History Significant Family History: Heart Disease Family History: FH: CHF (congestive heart failure) 19 MOTHER FH: lupus daughter Myocardial infarction 19 FATHER ( at age 35 from [place]) Review of Systems-General Review of Systems Constitutional: see HPI, chills; No diaphoresis, No fever, No weakness EENTM: No vision loss, No nose congestion Respiratory: No cough; dyspnea on exertion, short of breath Cardiovascular: see HPI, chest pain, edema (bilateral LE), Hx of Intervention; No palpitations, No syncope; vascular heart diseas; No other Gastrointestinal: see HPI; No abdominal pain, No constipation, No diarrhea, No nausea, No vomiting Genitourinary: see HPI; No dysuria, No frequency Musculoskeletal: see HPI, joint pain (chronic) Skin: see HPI, rash (bilateral LE) Psychiatric/Neurological: See HPI; Denies Numbness, Denies Paresthesia, Denies Weakness All Other Systems Reviewed Negative Unless Noted: Yes Reviewed Test Results Reviewed Test Results Lab Laboratory Tests Test 11/16/19 10:40 11/16/19 15:55 Range/Units White Blood Count 11.0 4.3-11.0 10^3/uL Red Blood Count 3.62 L 4.35-5.85 10^6/uL Hemoglobin 10.1 L 11.5-16.0 G/DL Hematocrit 32 L 35-52 % Mean Corpuscular Volume 88 80-99 FL Mean Corpuscular Hemoglobin 28 25-34 PG Mean Corpuscular Hemoglobin Concent 32 32-36 G/DL Red Cell Distribution Width 15.1 H 10.0-14.5 % Platelet Count 256 130-400 10^3/uL Mean Platelet Volume 11.0 H 7.4-10.4 FL Neutrophils (%) (Auto) 80 H 42-75 % Lymphocytes (%) (Auto) 11 L 12-44 % Monocytes (%) (Auto) 7 0-12 % Eosinophils (%) (Auto) 2 0-10 % Basophils (%) (Auto) 0 0-10 % Neutrophils # (Auto) 8.8 H 1.8-7.8 X 10^3 Lymphocytes # (Auto) 1.2 1.0-4.0 X 10^3 Monocytes # (Auto) 0.8 0.0-1.0 X 10^3 Eosinophils # (Auto) 0.2 0.0-0.3 10^3/uL Basophils # (Auto) 0.0 0.0-0.1 10^3/uL Sodium Level 139 135-145 MMOL/L Potassium Level 3.6 3.6-5.0 MMOL/L Chloride Level 100 98-107 MMOL/L Carbon Dioxide Level 27 21-32 MMOL/L Anion Gap 12 5-14 MMOL/L Blood Urea Nitrogen 36 H 7-18 MG/DL Creatinine 1.27 0.60-1.30 MG/DL Estimat Glomerular Filtration Rate 41 BUN/Creatinine Ratio 28 Glucose Level 123 H 70-105 MG/DL Calcium Level 9.1 8.5-10.1 MG/DL Corrected Calcium 9.4 8.5-10.1 MG/DL Total Bilirubin 1.6 H 0.1-1.0 MG/DL Aspartate Amino Transf (AST/SGOT) 15 5-34 U/L Alanine Aminotransferase (ALT/SGPT) 8 0-55 U/L Alkaline Phosphatase 62 40-136 U/L Troponin I < 0.30 0.029 H <0.028 NG/ML Pro-B-Type Natriuretic Peptide 1600.0 H <75.0 PG/ML Total Protein 6.4 6.4-8.2 GM/DL Albumin 3.6 3.2-4.5 GM/DL Lipase 25 8-78 U/L Physical Exam Physical Exam Vital Signs Vital Signs - First Documented Capillary Refill : Less Than 3 Seconds Height, Weight, BMI Height: '" Weight: lbs. oz. kg; 24.58 BMI Method: General Appearance: No Apparent Distress, WD/WN, Anxious HEENT: PERRL/EOMI, Normal ENT Inspection, Pharynx Normal Neck: Full Range of Motion, Non Tender, Supple Respiratory: Lungs Clear, Other (breath sounds diminished at bases.) Gastrointestinal: Non Tender, Soft Extremity: Swelling Neurologic/Psychiatric: Alert Skin: Rash (midankle and lower) A/P-Cardiology Admission Diagnosis Chest pain Coronary artery disease Hypertension Hyperlipidemia Assessment/Plan Chest pain resembling angina, accelerating angina, worsening recently, planning to proceed with cardiac catheterization possible PTCA Coronary artery disease, history of CABG in 1988, cardiac catheterization done in February 2019 showing tortuous NEWMAN to the mid and distal LAD. Severe in- stent restenosis in the proximal LAD with successful balloon angioplasty, severe multisegment stenosis in the circumflex artery, successful deployment of 2 overlapping drug-eluting stents with excellent results, moderate disease in the right coronary artery. Continue to have chest pain and shortness of breath. Using nitroglycerin regularly. Hypertension, restart home medication monitor blood pressure Hyperlipidemia, monitor lipids Peripheral edema, started on Lasix. Kyphosis, limited exercise ability Probably underlying COPD. Clinical Quality Measures AMI/AHF: ASA po Prior to arrival: No DVT/VTE Risk/Contraindication: Risk Factor Score Per Nursin RFS Level Per Nursing on Admit: 4+=Very High DONN QUEVEDO MD Nov 16, 2019 16:34
[2019-11-16] MEDS ORDERED: ENOXAPARIN 30 MG/0.3 ML (LOVENOX) SYR SC SCH (18:00)
[2019-11-16 21:30] VITALS: BP 130/73
[2019-11-16] MEDS: CARVEDILOL 12.5 MG (COREG) TABLET PO SCH (21:34)
[2019-11-16] MEDS: HYDROcodone/APAP 7.5 MG/325 MG (LORTAB, LORCET PLUS) TABLET PO PRN (21:34)
[2019-11-16 23:44] VITALS: BP 99/62
[2019-11-17 04:14] LABS: BASOPHILS % (AUTO) 0 % (0-10); EOSINOPHILS # (AUTO) 0.3 10^3/uL (0.0-0.3); EOSINOPHILS % (AUTO) 3 % (0-10); HEMATOCRIT 28 % (35-52); LYMPHOCYTES # (AUTO) 1.4 X 10^3 (1.0-4.0); LYMPHOCYTES % (AUTO) 14 % (12-44); MEAN CORPUSCULAR HEMOGLOBIN 28 PG (25-34); MEAN CORPUSCULAR HGB CONC 32 G/DL (32-36); MEAN CORPUSCULAR VOLUME 88 FL (80-99); MONOCYTES # (AUTO) 0.8 X 10^3 (0.0-1.0); MONOCYTES % (AUTO) 8 % (0-12); NEUTROPHILS # (AUTO) 7.4 X 10^3 (1.8-7.8); NEUTROPHILS % (AUTO) 75 % (42-75); PLATELET COUNT 233 10^3/uL (130-400); WHITE BLOOD COUNT 9.9 10^3/uL (4.3-11.0)
[2019-11-17 04:28] LABS: ALBUMIN 3.1 GM/DL (3.2-4.5); CHLORIDE 103 MMOL/L (98-107); POTASSIUM 3.5 MMOL/L (3.6-5.0); SODIUM 139 MMOL/L (135-145)
[2019-11-17 04:29] LABS: CALCIUM 8.3 MG/DL (8.5-10.1)
[2019-11-17 04:30] VITALS: BP 104/61
[2019-11-17 04:30] LABS: TRIGLYCERIDES 80 MG/DL (<150); VLDL CHOLESTEROL 16 MG/DL (5-40)
[2019-11-17 04:31] LABS: GLUCOSE 97 MG/DL (70-105); TOTAL PROTEIN 5.7 GM/DL (6.4-8.2)
[2019-11-17 04:32] LABS: BILIRUBIN,TOTAL 1.4 MG/DL (0.1-1.0); CARBON DIOXIDE 24 MMOL/L (21-32)
[2019-11-17 04:34] LABS: ALKALINE PHOSPHATASE 51 U/L (40-136); CREATININE SERUM 1.36 MG/DL (0.60-1.30); GFR ESTIMATED 38
[2019-11-17 04:35] LABS: BUN/CREATININE RATIO 27; CHOLESTEROL 139 MG/DL (< 200)
[2019-11-17 04:36] LABS: HDL CHOLESTEROL 58 MG/DL (40-60)
[2019-11-17 04:37] LABS: ALANINE AMINOTRANSFERASE 11 U/L (0-55)
[2019-11-17] MEDS: HYDROcodone/APAP 7.5 MG/325 MG (LORTAB, LORCET PLUS) TABLET PO PRN ×2 (05:32→10:21)
[2019-11-17] MEDS ORDERED: CATHETER FLUSH 10 ML SYR IV PRN (07:15)
--- NOTE | 2019-11-17 07:25 | NUR ---
PT OFF FLOOR FOR STRESS TEST UPON ASSUMING CARE OF PT.
--- NOTE | 2019-11-17 07:28 | Progress Note ---
ABDIRASHID LEGGETT,MED STUDENT 11/17/19 0728: Subjective Subjective/Events-last exam Patient seen and examined this morning. She is resting comfortably in the recliner in her room. She states she is doing okay except she is having ankle pain from her arthritis. She denies any chest pain or shortness of breath overnight. She also denies any shortness of breath when getting up to the restroom or moving to her chair. She feels like the swelling in her legs has improved a little as well. Review of Systems General: No Chills, No Malaise HEENT: No Head Aches, No Visual Changes Pulmonary: No Dyspnea, No Cough, No Pleuritic Chest Pain Cardiovascular: Edema; No: Chest Pain Gastrointestinal: No: Nausea, Vomiting, Abdominal Pain Musculoskeletal: leg pain (left ankle) Objective Exam Last Set of Vital Signs Vital Signs Date Time Temp Pulse Resp B/P (MAP) Pulse Ox O2 Delivery O2 Flow Rate FiO2 11/17/19 04:30 37.5 89 18 104/61 (75) 93 Room Air Capillary Refill : Less Than 3 Seconds I&O Intake and Output 11/17/19 00:00 Intake Total 1150 ml Balance 1150 ml Intake Oral 150 ml IV Total 1000 ml # Voids 3 Daily Weight Change No General: Alert, Cooperative, No Acute Distress HEENT: EOMI, Mucous Memb Moist/[place] Lungs: Other (end expiratory wheeze in left upper lobe, decreased breath sounds in bilateral bases) Heart: Regular Rate, No Murmurs Abdomen: Soft, No Tenderness Extremities: Other (edema to bilateral lower extremeties, erythema appears slightly decreased, very mild tenderness to palpation bilaterally ) Neuro: Normal Speech, Sensation Intact Psych/Mental Status: Mental Status NL, Mood NL Results/Procedures Lab Laboratory Tests 11/16/19 10:40: White Blood Count 11.0, Red Blood Count 3.62L, Hemoglobin 10.1L, Hematocrit 32L, Mean Corpuscular Volume 88, Mean Corpuscular Hemoglobin 28, Mean Corpuscular Hemoglobin Concent 32, Red Cell Distribution Width 15.1H, Platelet Count 256, Mean Platelet Volume 11.0H, Neutrophils (%) (Auto) 80H, Lymphocytes (%) (Auto) 11L, Monocytes (%) (Auto) 7, Eosinophils (%) (Auto) 2, Basophils (%) (Auto) 0, Neutrophils # (Auto) 8.8H, Lymphocytes # (Auto) 1.2, Monocytes # (Auto) 0.8, Eosinophils # (Auto) 0.2, Basophils # (Auto) 0.0, Sodium Level 139, Potassium Level 3.6, Chloride Level 100, Carbon Dioxide Level 27, Anion Gap 12, Blood Urea Nitrogen 36H, Creatinine 1.27, Estimat Glomerular Filtration Rate 41, BUN/Creatinine Ratio 28, Glucose Level 123H, Calcium Level 9.1, Corrected Calcium 9.4, Total Bilirubin 1.6H, Aspartate Amino Transf (AST/SGOT) 15, Alanine Aminotransferase (ALT/SGPT) 8, Alkaline Phosphatase 62, Troponin I < 0.30, Pro-B-Type Natriuretic Peptide 1600.0H, Total Protein 6.4, Albumin 3.6, Lipase 25 11/16/19 15:55: Troponin I 0.029H 11/16/19 21:57: Troponin I 0.029H 11/17/19 04:00: White Blood Count 9.9, Red Blood Count 3.23L, Hemoglobin 9.0L, Hematocrit 28L, Mean Corpuscular Volume 88, Mean Corpuscular Hemoglobin 28, Mean Corpuscular Hemoglobin Concent 32, Red Cell Distribution Width 15.3H, Platelet Count 233, Mean Platelet Volume 11.0H, Neutrophils (%) (Auto) 75, Lymphocytes (%) (Auto) 14, Monocytes (%) (Auto) 8, Eosinophils (%) (Auto) 3, Basophils (%) (Auto) 0, Neutrophils # (Auto) 7.4, Lymphocytes # (Auto) 1.4, Monocytes # (Auto) 0.8, Eosinophils # (Auto) 0.3, Basophils # (Auto) 0.0, Sodium Level 139, Potassium Level 3.5L, Chloride Level 103, Carbon Dioxide Level 24, Anion Gap 12, Blood Urea Nitrogen 37H, Creatinine 1.36H, Estimat Glomerular Filtration Rate 38, BUN/Creatinine Ratio 27, Glucose Level 97, Calcium Level 8.3L, Corrected Calcium 9.0, Total Bilirubin 1.4H, Aspartate Amino Transf (AST/SGOT) 15, Alanine Aminotransferase (ALT/SGPT) 11, Alkaline Phosphatase 51, Troponin I < 0.028, Total Protein 5.7L, Albumin 3.1L, Triglycerides Level 80, Cholesterol Level 139, LDL Cholesterol Direct 66, VLDL Cholesterol 16, HDL Cholesterol 58 Assessment/Plan Assessment/Plan Assessment & Plan Unstable Angina- cardiology consulted, possible cardiac cath Lower extremity edema- mildly improved from yesterday, erythema appears to have receded slightly. Continue Lasix Chronic Hypertension- carvedilol and losartan held for now, blood pressures remained low normal overnight Diastolic Dysfunction CAD- on home plavix DVT prophylaxis- enoxaparin, patient refused SCDs Clinical Quality Measures AMI/AHF: ASA po Prior to arrival: No DVT/VTE Risk/Contraindication: Risk Factor Score Per Nursin RFS Level Per Nursing on Admit: 4+=Very High COLLEEN ELIAS MD 11/17/19 1002: Assessment/Plan Assessment/Plan (1) Unstable angina Status: Acute Assessment & Plan: Cardiology consulted, appreciate recommendations. Stress test done this am 11/16, awaiting results. (2) Coronary artery disease Status: Chronic (3) Lower extremity edema Status: Chronic Assessment & Plan: With superimposed erythema, review of records reveals wound care prescribed doxycycine x 14 days starting on 10/25, so this should be complete, and patient reports improvement in redness. (4) Hypertension Status: Chronic Assessment & Plan: BP low normal to low on admit, hold carvedilol and losartan and monitor. 11/16 Dr. Cook resumed home meds, monitor. Qualifiers: Qualified Codes: I10 - Essential (primary) hypertension (5) Diastolic dysfunction (6) Elevated brain natriuretic peptide (BNP) level Status: Acute Assessment & Plan: Increased from August which was higher than February. Given 20 mg IV lasix in ER, resume home lasix. No hypoxia. Cardiology consulted, appreciate recommendations. (7) Acute renal insufficiency Status: Acute Assessment & Plan: Possibly due to extra lasix, monitor. (8) Atherosclerotic occlusive disease Status: Chronic Assessment & Plan: Resume home plavix. (9) DVT prophylaxis Status: Acute Assessment & Plan: Enoxaparin Supervisory-Addendum Brief Verification & Attestation Participated in pt care: history, MDM, physical Personally performed: exam, history, MDM Care discussed with: Medical Student Procedures: n/a I personally saw and evaluated this patient today, I repeated the history and physical exam and agree with student documentation. See problem list for my assessment and plan. ABDIRASHID LEGGETT,MED STUDENT Nov 17, 2019 07:28 COLLEEN ELIAS MD Nov 17, 2019 10:02
[2019-11-17] MEDS ORDERED: REGADENOSON 0.4 MG/5 ML SYR (LEXISCAN) IV ONE (07:54)
--- NOTE | 2019-11-17 08:26 | Cardiology Progress Note ---
Subjective Date Seen by Provider: Nov 17, 2019 Time Seen by Provider: 08:25 Subjective/Events-last exam Patient was seen at bedside, feeling better, had a stress test done this morning. Still processing the images Review of Systems General: No Chills, No Night Sweats, No Fatigue, No Malaise, No Appetite, No Other HEENT: No Head Aches, No Visual Changes, No Eye Pain, No Ear Pain, No Dysphasia, No Sinus Congestion, No Post Nasal Drip, No Sore Throat, No Other Pulmonary: No Dyspnea, No Cough, No Pleuritic Chest Pain, No Other Cardiovascular: No: Chest Pain, Palpitations, Orthopnea, Paroxysmal Noc. Dyspnea, Edema, Lt Headedness, Other Objective-Cardiology Exam Last Set of Vital Signs Vital Signs 11/17/19 11/17/19 04:30 06:37 Temp 37.5 Pulse 86 Resp 18 B/P (MAP) 104/61 (75) Pulse Ox 93 O2 Delivery Room Air Capillary Refill : Less Than 3 Seconds I&O Intake and Output 11/17/19 00:00 Intake Total 1150 ml Balance 1150 ml Intake Oral 150 ml IV Total 1000 ml # Voids 3 Daily Weight Change No General: Alert, Oriented X3, Cooperative, No Acute Distress HEENT: Atraumatic, PERRLA, EOMI, Mucous Memb Moist/[place] Neck: Supple, No JVD Lungs: Clear to Auscultation, Normal Air Movement, Other (end expiratory wheeze in left upper lobe, decreased breath sounds in bilateral bases) Heart: Regular Rate, Normal S1, Normal S2, No Murmurs Abdomen: Soft, No Tenderness Extremities: No Clubbing, Other (edema to bilateral lower extremeties, erythema appears slightly decreased, very mild tenderness to palpation bilaterally ) Skin: No Rashes Neuro: Normal Speech, Sensation Intact Psych/Mental Status: Mental Status NL, Mood NL Results Lab Laboratory Tests 11/16/19 10:40 11/17/19 04:00 A/P-Cardiology Admission Diagnosis Chest pain Coronary artery disease Hypertension Hyperlipidemia Assessment/Plan Chest pain resembling angina, accelerating angina, worsening recently, currently chest pain-free. I will evaluate Lexiscan stress test and evaluate tolerance and response Coronary artery disease, history of CABG in 1988, cardiac catheterization done in February 2019 showing tortuous NEWMAN to the mid and distal LAD. Severe in- stent restenosis in the proximal LAD with successful balloon angioplasty, severe multisegment stenosis in the circumflex artery, successful deployment of 2 overlapping drug-eluting stents with excellent results, moderate disease in the right coronary artery. Continue to have chest pain and shortness of breath. Using nitroglycerin regularly. Hypertension, currently borderline hypotensive. Continue to monitor Hyperlipidemia, monitor lipids Peripheral edema, started on Lasix. Kyphosis, limited exercise ability Probably underlying COPD. Clinical Quality Measures AMI/AHF: ASA po Prior to arrival: No DVT/VTE Risk/Contraindication: Risk Factor Score Per Nursin RFS Level Per Nursing on Admit: 4+=Very High DONN QUEVEDO MD Nov 17, 2019 08:26
[2019-11-17] MEDS ORDERED: KCL 20 MEQ TAB (K-DUR) PO ONE (08:30)
[2019-11-17] MEDS ORDERED: LOSARTAN 100 MG (COZAAR) TABLET PO SCH (09:00)
[2019-11-17] MEDS ORDERED: FUROSEMIDE 40 MG (LASIX) TAB PO SCH (09:00)
[2019-11-17] MEDS ORDERED: ISOSORBIDE MONONITRATE 30 MG (IMDUR) TAB PO SCH (09:00)
[2019-11-17] MEDS ORDERED: CLOPIDOGREL 75 MG (PLAVIX) TABLET PO SCH (09:00)
--- NOTE | 2019-11-17 09:40 | NUR ---
pt back to floor from [facility].
[2019-11-17 09:44] VITALS: BP 145/90
[2019-11-17] MEDS: CARVEDILOL 12.5 MG (COREG) TABLET PO SCH (09:45)
--- NOTE | 2019-11-17 11:30 | NUR ---
PTS BP 86/44, DR ELIAS INFORMED.
[2019-11-17 11:32] VITALS: BP 86/44
--- NOTE | 2019-11-17 12:00 | NUR ---
dr ruiz notified of pts decreased bp.
[2019-11-17 12:23] VITALS: BP 87/55
--- NOTE | 2019-11-17 12:25 | NUR ---
dr ruiz here to see pt.
[2019-11-17] MEDS ORDERED: NS IV 500 ML 500 ML ONE (12:31)
--- NOTE | 2019-11-17 12:44 | NUR ---
DR QUEVEDO OK W/ PT GOING HOME AFTER RECEIVING 500ML NS BOLUS TO INCREASE BP. DR QUEVEDO TO ADJUST HOME MEDS. DR ELIAS UPDATED BY THIS RN.
[2019-11-17] MEDS ORDERED: NS IV 500 ML 500 ML IV ONE (12:45)
[2019-11-17 13:32] VITALS: BP 123/70
[2019-11-17] MEDS ORDERED: CARV12.53 PO (14:13)
[2019-11-17] MEDS ORDERED: LOSA50TA63 PO (14:13)
[2019-11-17] MEDS ORDERED: ISOS30TA3 PO (14:27)
--- NOTE | 2019-11-17 14:31 | Discharge Summary ---
Discharge Summary Hospital Course Problems/Diagnosis: (1) Unstable angina Status: Acute Assessment & Plan: Cardiology consulted, appreciate recommendations. Stress t est done 11/16. Started on isosorbide. (2) Coronary artery disease Status: Chronic (3) Lower extremity edema Status: Chronic Assessment & Plan: With superimposed erythema, review of records reveals wound care prescribed doxycycine x 14 days starting on 10/25, so this should be complete, and patient reports improvement in redness. (4) Hypertension Status: Chronic Assessment & Plan: BP low normal to low on admit, hold carvedilol and losartan and monitor. 11/16 Dr. Cook resumed home meds, changed to half dose and continued on lower dose at d/c. Qualifiers: Qualified Codes: I10 - Essential (primary) hypertension (5) Diastolic dysfunction (6) Elevated brain natriuretic peptide (BNP) level Status: Acute Assessment & Plan: Increased from August which was higher than February. Given 20 mg IV lasix in ER, resume home lasix. No hypoxia. Cardiology consulted, appreciate recommendations. (7) Acute renal insufficiency Status: Acute Assessment & Plan: Possibly due to extra lasix, monitor. (8) Atherosclerotic occlusive disease Status: Chronic Assessment & Plan: Resume home plavix. Hospital Course Date of Admission: Nov 16, 2019 at 13:49 Admission Diagnosis : Family Physician/Provider: Donna Herrera MD Date of Discharge: 11/17/19 Discharge Diagnosis: See problem list Hospital Course: See problem list Labs and Pending Lab Test: Laboratory Tests 11/16/19 15:55: Troponin I 0.029H 11/16/19 21:57: Troponin I 0.029H 11/17/19 04:00: Troponin I < 0.028, White Blood Count 9.9, Red Blood Count 3.23L, Hemoglobin 9.0L, Hematocrit 28L, Mean Corpuscular Volume 88, Mean Corpuscular Hemoglobin 28, Mean Corpuscular Hemoglobin Concent 32, Red Cell Distribution Width 15.3H, Platelet Count 233, Mean Platelet Volume 11.0H, Neutrophils (%) (Auto) 75, Lymphocytes (%) (Auto) 14, Monocytes (%) (Auto) 8, Eosinophils (%) (Auto) 3, Basophils (%) (Auto) 0, Neutrophils # (Auto) 7.4, Lymphocytes # (Auto) 1.4, Monocytes # (Auto) 0.8, Eosinophils # (Auto) 0.3, Basophils # (Auto) 0.0, Sodium Level 139, Potassium Level 3.5L, Chloride Level 103, Carbon Dioxide Level 24, Anion Gap 12, Blood Urea Nitrogen 37H, Creatinine 1.36H, Estimat Glomerular Filtration Rate 38, BUN/Creatinine Ratio 27, Glucose Level 97, Calcium Level 8.3L, Corrected Calcium 9.0, Total Bilirubin 1.4H, Aspartate Amino Transf (AST/SGOT) 15, Alanine Aminotransferase (ALT/SGPT) 11, Alkaline Phosphatase 51, Total Protein 5.7L, Albumin 3.1L, Triglycerides Level 80, Cholesterol Level 139, LDL Cholesterol Direct 66, VLDL Cholesterol 16, HDL Cholesterol 58 Home Meds Active Isosorbide Mononitrate ER (Isosorbide Mononitrate) 30 Mg Tab.er.24h 30 Mg PO DAILY Losartan Potassium 50 Mg Tablet 50 Mg PO DAILY Carvedilol 12.5 Mg Tablet 12.5 Mg PO BID Reported Pepcid (Famotidine) 20 Mg Tablet 20 Mg PO DAILY PRN Clopidogrel (Clopidogrel Bisulfate) 75 Mg Tablet 75 Mg PO DAILY Alprazolam 0.25 Mg Tablet 0.25 Mg PO BID PRN HYDROcodone/APAP 7.5/325 TAB (Acetaminophen/Hydrocodone Bitart) 1 Each Tablet 1 Tab PO TID PRN Lasix (Furosemide) 40 Mg Tablet 40 Mg PO DAILY Nitroglycerin 0.4 Mg Tab.subl 0.4 Mg SL UD PRN Assessment/Pt DC Instructions Follow up with Dr. Herrera on 11/28 at 10:30 am. Discharge Diet: Cardiac Diet Activity as Tolerated: Yes Discharge Physical Examination Allergies: Coded Allergies: No Known Drug Allergies (Unverified , 02/20/19) Copy Copies To 1: DONNA HERRERA MD Clinical Quality Measures AMI/AHF: ASA po Prior to arrival: No DVT/VTE Risk/Contraindication: Risk Factor Score Per Nursin RFS Level Per Nursing on Admit: 4+=Very High COLLEEN ELIAS MD Nov 17, 2019 14:31
--- NOTE | 2019-11-17 15:15 | NUR ---
GARY MATOS demonstrates understanding of discharge instructions and accurately returns instructions upon questioning. Copy of Post-Discharge Instructions and Medication Discharge Instructions given to PT. GARY MATOS is able to manage continuing needs after discharge. Patients belongings returned to PT. Skin dry and intact; no breakdown noted. Patient discharged from [facility] on 11/17/19 at 1515. GARY MATOS left floor via , accompanied by STAFF.
[2019-11-17] MEDS ORDERED: CARVEDILOL 12.5 MG (COREG) TABLET PO SCH (21:00)
[2019-11-18] MEDS ORDERED: FAMOTIDINE 20 MG (PEPCID) TABLET PO PRN (09:00)
[2019-11-18] MEDS ORDERED: LOSARTAN 50 MG (COZAAR) TAB PO SCH (09:00)
[2019-11-18] MEDS ORDERED: PANTOPRAZOLE 40 MG (PROTONIX) TAB PO SCH (09:00)
--- NOTE | 2019-11-18 10:54 | Cardiology Stress Test Report ---
Stress Test Report Date of Procedure/Referring: Date of Procedure: Nov 17, 2019 PCP Jaylin Mejia MD Admitting Physician Jarad Herrera MD Indications: Chest pain Baseline Heart Rate: 103 Baseline Blood Pressure: Blood Pressure Systolic: 123 Blood Pressure Diastolic: 70 Baseline Vitals Vital Signs Date Time Temp Pulse Resp B/P (MAP) Pulse Ox O2 Delivery O2 Flow Rate FiO2 11/16/19 10:35 36.9 93 17 101/46 (64) 94 Room Air Baseline EKG: Baseline EKG: sinus tachycardia, occasional PVCs Summary After explaining the procedure to the patient, she signed a consent and then brought to the stress nuclear laboratory. Patient received 0.4 mg Lexiscan for stress test, ECG, heart rate and blood pressure were monitored continuously. Resting and stress dose of radio tracer were injected, imaging was acquired and reviewed in short axis, horizontal long axis and vertical long axis views. TID: 1.12 SSS: 6 SDS: 0 EF: 58 1. Patient tolerated Lexiscan well 2. Baseline hypertension persisted during test 3. Mild decrease uptake at the base of the anterior wall and anterior septum, no significant ischemia or infarction was noted on SPECT images 4. Normal left ventricular size, EF 58 percent DONN QUEVEDO MD Nov 18, 2019 10:54
== END 2019-11-17 15:15 | disposition home or self-care (01) | DRG 303 ==
LOC: EDUNIT# 10:33 → ER FS 10:38 → CSD 13:49
PROVIDERS: ADMIT Family Medicine; ATTEND Family Medicine
DX: I25.110 Atherosclerotic heart disease of native coronary artery with unstable angina pectoris (principal); L03.116 Cellulitis of left lower limb; L03.115 Cellulitis of right lower limb; E78.00 Pure hypercholesterolemia, unspecified; E78.5 Hyperlipidemia, unspecified; I12.9 Hypertensive chronic kidney disease with stage 1 through stage 4 chronic kidney disease, or unspecified chronic kidney disease; N18.3 Chronic kidney disease, stage 3 (moderate); M19.072 Primary osteoarthritis, left ankle and foot; N28.9 Disorder of kidney and ureter, unspecified; R60.0 Localized edema; Q68.8 Other specified congenital musculoskeletal deformities; Z85.038 Personal history of other malignant neoplasm of large intestine; Z95.1 Presence of aortocoronary bypass graft; Z95.5 Presence of coronary angioplasty implant and graft
CPT/HCPCS: 36415; 71045; 78452; 80053; 80061; 83690; 83880; 84484; 85025; 85027; 93005; 93017; 93306

== ENCOUNTER → 2019-11-24 | Outpatient (CLI) | payer MEDICARE ==
[~2019-11-24] MED LIST changes: +ALPR0.254 PO; +CARV12.53 PO; +FAMO-119 PO; +ISOS30TA3 PO; +LOSA50TA63 PO
--- NOTE | 2019-11-24 13:33 | Diagnostic Imaging Report ---
INDICATION: Generalized abdominal pain and abdominal distention. TIME OF EXAM: 12:44 p.m. FINDINGS: Changes of median sternotomy are noted. There is mild elevation of the left hemidiaphragm which appears chronic when compared with prior exams. Lungs are clear. No free air is identified. Bowel gas pattern is nonobstructed. No pathologic calcifications are seen. IMPRESSION: No acute abnormality is detected. Dictated by: Dictated on workstation # [id number]
== END ==
LOC: RAD FS 12:38
PROVIDERS: ATTEND Family Medicine
DX: R10.84 Generalized abdominal pain (principal); R14.0 Abdominal distension (gaseous)
CPT/HCPCS: 74022

== ENCOUNTER → 2019-11-26 | Outpatient (CLI) | payer MEDICARE ==
[~2019-11-26] MED LIST changes: +ALPR.25T PO; -ALPR0.254 PO
== END ==
LOC: WOUNDCARE 14:15
PROVIDERS: ATTEND Surgery
DX: I89.0 Lymphedema, not elsewhere classified (principal); L03.115 Cellulitis of right lower limb; L03.116 Cellulitis of left lower limb; I50.84 End stage heart failure
CPT/HCPCS: 99212